=== PATIENT | female | born 1990 | race Two or more races ===

== ENCOUNTER 2016-03-21 04:38 | Inpatient (IN) | payer SELFPAY ==
--- NOTE | 2016-03-21 04:47 | L&D General Admission ---
General Admit Datetime Report Generated by CPN: 03/21/2016 04:45 INFORMATION Patient Age: 25 (02/20/2016 14:04:QS system process) EDC: 04/17/2016 00:00 (02/20/2016 15:21:Neeru Grajeda RN) Para: 1 (02/20/2016 15:17:Neeru Grajeda RN) Baby, Number in Womb: 1 (02/20/2016 15:17:Neeru Grajeda RN) CARE Primary Consulting Services Manager: [facility] (02/20/2016 15:21:Taylor Cee RN) Height (in): 61 (02/23/2016 17:30:QS system process) Height (in): 61 (02/23/2016 17:23:QS system process) Height (in): 61 (02/20/2016 15:27:QS system process) ALLERGIES Medication Allergies: No Known Allergies (02/23/2016) (02/23/2016 17:20:QS system process) Medication Allergies: No Known Allergies (09/05/2011) (02/20/2016 14:04:QS system process) DEMOGRAPHICS Address: [address] [place] [id number] (02/20/2016 14:04:QS system process) Zipcode: [id number] (02/20/2016 14:04:QS system process) Home (02/20/2016 14:04:QS system process) Work (03/21/2016 04:38:QS system process) SSN: [id number] (02/20/2016 14:04:QS system process) Next of Kin Name: ESTHER GUTIERREZ (02/20/2016 14:04:QS system process) Next of Kin (02/20/2016 14:04:QS system process) Next of Kin Relationship: SPO (02/20/2016 14:04:QS system process) Date of : 1990 (02/20/2016 14:04:QS system process) Marital Status: (02/20/2016 14:04:QS system process) Sex: Female (02/20/2016 14:04:QS system process) Race: Other (02/20/2016 14:04:QS system process) Ethnicity: or (02/20/2016 14:04:QS system process) Jain: Other (02/20/2016 14:04:QS system process)
[2016-03-21 05:32] LABS: APPEARANCE,URINE SLIGHTLY-CLOUDY; BILIRUBIN,URINE NEGATIVE (NEGATIVE); GLUCOSE, URINE NEGATIVE (NEGATIVE); KETONES,URINE NEGATIVE (NEGATIVE); LEUKOCYTE ESTERASE,URINE SMALL (NEGATIVE); NITRITE,URINE NEGATIVE (NEGATIVE); PROTEIN,URINE NEGATIVE (NEGATIVE); URINE SPECIFIC GRAVITY 1.009; UROBILINOGEN,URINE NEGATIVE mg/dL (<2.0)
[2016-03-21 05:43] LABS: URINE BARBITURATES SCREEN NEGATIVE; URINE METHADONE SCREEN NEGATIVE; URINE PHENCYCLIDINE SCREEN NEGATIVE
--- NOTE | 2016-03-21 06:16 | L&D General Admission ---
General Admit Datetime Report Generated by CPN: 03/21/2016 06:00 INFORMATION Patient Age: 25 (02/20/2016 14:04:QS system process) EDC: 04/17/2016 00:00 (02/20/2016 15:21:Neeru Grajeda RN) : 3 (02/20/2016 15:21:Gia Calderon RN) Para: 0 (02/20/2016 15:17:Zayra Jain RN) Term: 0 (02/20/2016 15:21:Zayra Jain RN) : 0 (02/20/2016 15:21:Zayra Jain RN) Spontaneous Abortions: 2 (02/20/2016 15:21:Zayra Jain RN) Induced Abortions: 0 (02/20/2016 15:21:Zayra Jain RN) Livin (02/20/2016 15:21:Zayra Jain RN) Cesareans: 0 (02/20/2016 15:21:Zayra Jain RN) VBACs: 0 (02/20/2016 15:21:Zayra Jain RN) Ectopic: 0 (02/20/2016 15:21:Zayra Jain RN) Multiple Births: 0 (02/20/2016 15:21:Zayra Jain RN) Baby, Number in Womb: 1 (02/20/2016 15:17:Neeru Grajeda RN) CARE Primary Management Technician: [facility] (02/20/2016 15:21:Taylor Cee RN) Adequate Care: Yes (02/20/2016 15:21:Gia Calderon RN) Height (in): 61 (03/21/2016 05:01:QS system process) ALLERGIES Medication Allergy: No (02/20/2016 15:21:Gia Calderon RN) Medication Allergies: No Known Allergies (03/21/2016) (03/21/2016 05:01:QS system process) Latex Allergy: No Latex Allergies (02/20/2016 15:21:Gia Calderon, RN) Food Allergies: none (02/20/2016 15:21:Gia Calderon, RN) Environmental Allergies: none (02/20/2016 15:21:Gia Calderon, RN) COMMUNICATION Primary Language: Kinyarwanda (02/20/2016 15:21:Gia Calderon, RN) Communication Barrier(s): Language barrier (02/20/2016 15:21:Gia Calderon, RN) DEMOGRAPHICS Address: [address] [place] [id number] (02/20/2016 14:04:QS system process) Zipcode: [address] (02/20/2016 14:04:QS system process) Home (02/20/2016 14:04:QS system process) Work (03/21/2016 04:38:QS system process) SSN: [id number] (02/20/2016 14:04:QS system process) Next of Kin Name: ESTHER GUTIERREZ (02/20/2016 14:04:QS system process) Next of Kin (02/20/2016 14:04:QS system process) Next of Kin Relationship: SPO (02/20/2016 14:04:QS system process) Date of : 1990 (02/20/2016 14:04:QS system process) Marital Status: (02/20/2016 14:04:QS system process) Sex: Female (02/20/2016 14:04:QS system process) Race: Other (02/20/2016 14:04:QS system process) Ethnicity: or (02/20/2016 14:04:QS system process) Roman Catholic: Other (02/20/2016 14:04:QS system process) FOB Involved: Yes (02/20/2016 15:21:Gia Calderon RN) Father of Baby Name: Esther Ashtonmasonkhari (02/20/2016 15:21:Gia Calderon RN) DRUG AND ALCOHOL USE Alcohol: No (02/20/2016 15:21:Gia Calderon RN) Cigarettes: Never Smoker. [id number] (02/20/2016 15:21:Gia Calderon RN) Marijuana: No (02/20/2016 15:21:Gia Calderon RN) Cocaine: No (02/20/2016 15:21:Gia Calderon RN) Other Illicit Drugs: No (02/20/2016 15:21:Gia Calderon RN) VACCINE HISTORY Influenza Vaccine: Uncertain (02/20/2016 15:21:Gia Calderon RN) Pneumococcal Vaccine: No (02/20/2016 15:21:Gia Calderon RN) Tetanus Vaccine: Uncertain (02/20/2016 15:21:Gia Calderon RN) Tdap Vaccine: Uncertain (02/20/2016 15:21:Gia Calderon RN) Hepatitis B Vaccine: Uncertain (02/20/2016 15:21:Gia Calderon RN) Feeding Preference: Both (02/20/2016 15:21:Gia Calderon RN) Circumcision: N/A (02/20/2016 15:21:Gia Calderon RN) Tubal Ligation: No (02/20/2016 15:21:Gia Calderon RN) Tubal Authorization Signed: N/A (02/20/2016 15:21:Gia Calderon RN) Consent: N/A (02/20/2016 15:21:Gia Calderon RN) Consent Signed: N/A (02/20/2016 15:21:Gia Calderon RN) Support Person: Esther (02/20/2016 15:21:Gia Calderon RN) Support Person Relationship: (02/20/2016 15:21:Gia Calderon RN) Cultural/Spritual Practice: No (02/20/2016 15:21:Gia Calderon RN) Spir/Cult Dietary Needs: No (02/20/2016 15:21:Gia Calderon RN) LIVING SITUATION/DISCHARGE PLAN Living Arrangements: House (02/20/2016 15:21:Gia Calderon RN) Adequate Access to:: Electric; Heat; Refrigeration; Plumbing/Running water; Phone; Transportation (02/20/2016 15:21:Gia Calderon RN) WIC Program: Yes (02/20/2016 15:21:Gia Calderon RN) Discharge Tubing Drier Person: Esther (02/20/2016 15:21:Gia Calderon RN) Person to Help after Discharge: Esther (02/20/2016 15:21:Gia Calderon RN) Currently Using Commun Resources: Yes (02/20/2016 15:21:Gia Calderon RN) Specify Current Resource Used: WIC (02/20/2016 15:21:Gia Calderon RN) Outside Agency/Crystalizer Operator: No (02/20/2016 15:21:Gia Calderon RN) Car Seat for Discharge: No (02/20/2016 15:21:Gia Calderon RN) Adoption Requested: No (02/20/2016 15:21:Gia Calderon RN) Pt Contact w/infant Post : N/A (02/20/2016 15:21:Gia Calderon RN) LABS Blood Type: O Positive (02/20/2016 15:21:Zayra Jain RN) Antibody Screen: Negative (02/20/2016 15:21:Zayra Jain RN) Rho(G) this : Not Applicable (02/20/2016 15:21:Zayra Jain RN) RPR/VDRL: Nonreactive (02/20/2016 15:21:Zayra Jain RN) HIV Results: Negative (02/20/2016 15:21:Zayra Jain RN) Hepatitis B: Negative (02/20/2016 15:21:Zayra Jain RN) Rubella: Immune (02/20/2016 15:21:Zayra Jain RN) Varicella: Non Susceptible (02/20/2016 15:21:Zayra Jain RN) OB/PREVIOUS HISTORY Current Procedures: Ultrasound; NST (02/20/2016 15:21:Gia Calderon RN) History of Previous : No (02/20/2016 15:21:Gia Calderon RN) History of Gestational Diabetes: Yes (02/20/2016 15:21:Gia Calderon RN) History of PIH: No (02/20/2016 15:21:Gia Calderon RN) History of Incompetent Cervix: No (02/20/2016 15:21:Gia Calderon RN) History of Placenta Previa/Abrup: No (02/20/2016 15:21:Gia Calderon RN) History of Macrosomia: No (02/20/2016 15:21:Gia Calderon RN) History of IUGR: No (02/20/2016 15:21:Gia Calderon RN) History of Hemorrhage: No (02/20/2016 15:21:Gia Calderon RN) History of Loss/Stillborn: No (02/20/2016 15:21:Gia Calderon RN) History of : No (02/20/2016 15:21:Gia Calderon RN) History of D (Rh) Sensitization: No (02/20/2016 15:21:Gia Calderon RN) History Recurrent Loss/Stillborn: No (02/20/2016 15:21:Gia Calderon RN) History Depression/PP Depression: No (02/20/2016 15:21:Gia Calderon RN) History of Uterine Anomaly/RITESH: No (02/20/2016 15:21:Gia Calderon RN) History of Infertility: No (02/20/2016 15:21:Gia Calderon RN) History of ART Treatment: No (02/20/2016 15:21:Gia Calderon RN) History of RITESH: No (02/20/2016 15:21:Gia Calderon RN) Comments Obstetrical History: G1: 2010 G2: 2014 G3: Current (02/20/2016 15:21:Gia Calderon RN) MEDICAL HISTORY Med Hx Diabetes: No (02/20/2016 15:21:Gia Calderon RN) Med Hx Hypertension: No (02/20/2016 15:21:Gia Calderon RN) Med Hx Heart Disease: No (02/20/2016 15:21:Gia Calderon RN) Med Hx Autoimmune Disorder: No (02/20/2016 15:21:Gia Calderon RN) Med Hx Kidney Disease/UTI: No (02/20/2016 15:21:Gia Calderon RN) Med Hx Neurologic/Epilepsy: No (02/20/2016 15:21:Gia Calderon RN) Med Hx Psychiatric Disorders: No (02/20/2016 15:21:Gia Calderon RN) Med Hx Hepatitis/Liver Disease: No (02/20/2016 15:21:Gia Calderon RN) Med Hx Varicosities/Phlebitis: No (02/20/2016 15:21:Gia Calderon RN) Med Hx Thyroid Dysfunction: No (02/20/2016 15:21:Gia Calderon RN) Med Hx Trauma/Violence: No (02/20/2016 15:21:Gia Calderon RN) Med Hx Blood Transfusion: No (02/20/2016 15:21:Gia Calderon RN) Med Hx Pulmonary (Asthma,TB): No (02/20/2016 15:21:Gia Calderon RN) Med Hx Breast: No (02/20/2016 15:21:Gia Calderon RN) Med Hx CREDIT COLLECTIONS SPECIALIST Surgery: No (02/20/2016 15:21:Gia Calderon RN) Med Hx Hospitalization/Surgery: No (02/20/2016 15:21:Gia Calderon RN) Med Hx Anesthetic Complications: No (02/20/2016 15:21:Gia Calderon RN) Med Hx Abnormal Pap Smear: No (02/20/2016 15:21:Gia Calderon RN) Other Medical Diseases: No (02/20/2016 15:21:Gia Calderon RN) Med Hx Significant Family Hx: No (02/20/2016 15:21:Gia Calderon RN) INFECTIOUS HISTORY Inf Hx Gonorrhea: No (02/20/2016 15:21:Gia Calderon RN) Inf Hx Chlamydia: No (02/20/2016 15:21:Gia Calderon RN) Inf Hx Syphilis: No (02/20/2016 15:21:Gia Calderon RN) Inf Hx HIV/AIDS: No (02/20/2016 15:21:Gia Calderon RN) Inf Hx Human Papilloma Virus: No (02/20/2016 15:21:Gia Calderon RN) Inf Hx Pt/Partner Genital Herpes: No (02/20/2016 15:21:Gia Calderon RN) Inf Hx Tuberculosis/Exposure: No (02/20/2016 15:21:Gia Calderon RN) Inf Hx Hepatitis B,C: No (02/20/2016 15:21:Gia Calderon RN) Inf Hx Rash or Viral Illness: No (02/20/2016 15:21:Gia Calderon RN) GENETIC HISTORY Gen Hx Age >=35 at VAHID: No (02/20/2016 15:21:Gia Calderon RN) Gen Hx Thalassemia: No (02/20/2016 15:21:Gia Calderon RN) Gen Hx Congenital Heart Defect: No (02/20/2016 15:21:Gia Calderon RN) Gen Hx Neural Tube Defect: No (02/20/2016 15:21:Gia Calderon RN) Gen Hx Down's Syndrome: No (02/20/2016 15:21:Gia Calderon RN) Gen Hx Leif-Sachs: No (02/20/2016 15:21:Gia Calderon RN) Gen Hx Keesha: No (02/20/2016 15:21:Gia Calderon RN) Gen Hx Familial Dysautonomia: No (02/20/2016 15:21:Gia Calderon RN) Gen Hx Sickle Cell Disease/Trait: No (02/20/2016 15:21:Gia Calderon RN) Gen Hx Hemophilia/Blood Disorder: No (02/20/2016 15:21:Gia Calderon RN) Gen Hx Muscular Dystrophy: No (02/20/2016 15:21:Gia Calderon RN) Gen Hx Cystic Fibrosis: No (02/20/2016 15:21:Gia Calderon RN) Gen Hx Huntingtons Chorea: No (02/20/2016 15:21:Gia Calderon RN) Gen Hx Mental Retardation/Autism: No (02/20/2016 15:21:Gia Calderon RN) Gen Hx Tested for Fragile X: No (02/20/2016 15:21:Gia Calderon RN) Gen Hx Other Inher/Chromosomal: No (02/20/2016 15:21:Gia Calderon RN) Gen Hx Maternal Metabolic DO: No (02/20/2016 15:21:Gia Calderon RN) Gen Hx Pt Father or FOB Defect: No (02/20/2016 15:21:Gia Calderon RN) Gen Hx Other Genetic History: No (02/20/2016 15:21:Gia Calderon RN) Gen Hx Drugs/Meds since LMP: No (02/20/2016 15:21:Gia Calderon RN)
--- NOTE | 2016-03-21 06:16 | L&D Current Admission ---
Current Admit Datetime Report Generated by CPN: 03/21/2016 06:00 ADMISSION INFORMATION Chief Complaint: Contractions (03/21/2016 05:21:Gia Kvng, ABELARDO)
[2016-03-21] MEDS ORDERED: PENICILLIN G POTASSIUM 5,000,000 UNIT in DEXTROSE 5%-WATER 100 ML IV ONE (06:31)
[2016-03-21] MEDS ORDERED: PENICILLIN G-K 5 MILLION UNIT VIAL ONE ×2 (06:31→10:25)
[2016-03-21] MEDS ORDERED: RINGERS SOLUTION,LACTATED 1,000 ML IV PRN ×2 (06:31→10:28)
[2016-03-21] MEDS ORDERED: PENICILLIN G-K 5 MILLION UNIT VIAL IV PRN ×2 (07:01→07:04)
[2016-03-21 07:03] LABS: ABSOLUTE EOSINOPHILS # (AUTO) 0.2 10^3/uL (0.0-0.6); ABSOLUTE LYMPHOCYTES (AUTO) 2.7 10^3/uL (0.5-4.7); ABSOLUTE MONOCYTES (AUTO) 0.7 10^3/uL (0.1-1.4); ABSOLUTE NEUT (AUTO) 10.2 10^3/uL (1.7-8.2); BASOPHILS % (AUTO) 0.4 % (0-2); EOSINOPHILS % (AUTO) 1.2 % (0-6); HEMATOCRIT 39.1 % (36.0-47.0); HEMOGLOBIN 13.2 g/dL (12.0-15.5); HGB HCT DIFFERENCE 0.5; LYMPHOCYTES % (AUTO) 19.8 % (13-45); MEAN CORPUSCULAR HEMOGLOBIN 28.7 pg (27.0-33.4); MEAN CORPUSCULAR HGB CONC 33.9 g/dL (32.0-36.0); MEAN CORPUSCULAR VOLUME 85 fl (80-97); RED BLOOD COUNT 4.62 10^6/uL (3.72-5.28); RED CELL DISTRIBUTION WIDTH 15.5 % (11.5-14.0); SEGMENTED NEUTROPHILS % (AUTO) 73.6 % (42-78); WHITE BLOOD COUNT 13.8 10^3/uL (4.0-10.5)
--- NOTE | 2016-03-21 08:01 | L&D Flow Sheet ---
LD Flowsheet Datetime Report Generated by CPN: 03/21/2016 08:00 Datetime: 03/21/2016 07:42 Maternal Assessment Level of Consciousness: Fully Conscious (Brenda Bronson, RN) DTR's/Clonus: DTRs 2+; No Clonus (Brenda Bronson, RN) Headache: Denies (Brenda Bronson, ABELARDO) Breath Sounds, Left: Clear and Equal (Brenda Bronson RN) Breath Sounds, Right: Clear and Equal (Brenda Flaviodebra, RN) Nausea/Vomiting: Denies (Brenda Aiyana, RN) RUQ Epigastric Pain: Denies (Brenda Bronson, RN) Datetime: 03/21/2016 07:30 Uterine Activity Monitor Mode: Internal (Brenda Willifka, RN) Frequency (min): 3-4 (Brenda Aiyana, RN) Duration (sec): 40-110 (Brenda Aiyana, RN) Resting Tone (Palpate): Relaxed (Brenda Willifdebra, RN) Assessment A Monitor Mode: External US (Brenda Marhefka, RN) FHR Baseline Rate : 125 (Brenda Marhefka, RN) FHR Baseline Changes: No Baseline Change (Brenda Marhefka, RN) Variability: Moderate 6-25 bpm (Brenda Marhefka, RN) Accelerations: None (Brenda Marhefka, RN) Decelerations: Early (Brenda Marhefka, RN) Datetime: 03/21/2016 07:21 I/O Interventions: Up to BR (Gia Calderon, RN) Datetime: 03/21/2016 07:15 Communication Communication: RN at Bedside; RN Reviewed Strip; Report Given to @ R Marhefka, RN (Gia Calderon, RN) Communication Comments: Report given to R Willifka, RN. Care relinquished at this time. (Gia Calderon, RN) Datetime: 03/21/2016 07:07 Monitor Interventions for FHR: Ultrasound Adjusted (Gia Calderon, RN) Datetime: 03/21/2016 07:04 Monitor Interventions for FHR: Ultrasound Adjusted (Gia Calderon, RN) Datetime: 03/21/2016 07:02 Procedures: Consents Signed (Gia Calderon, RN) Datetime: 03/21/2016 07:00 Vital Signs Stage of : Labor (Gia Calderon, RN) Uterine Activity Monitor Mode: External; Palpation (Gia Calderon, RN) Frequency (min): 2-2.5 (Gia Calderon, RN) Quality: Mild/Moderate (Gia Calderon, RN) Duration (sec): 90-140 (Gia Calderon, RN) Pattern: Normal: <= 5 Contractions in 10 Minutes (Gia Calderon, RN) Resting Tone (Palpate): Relaxed (Gia Calderon, RN) Assessment A Monitor Mode: External US (Gia Calderon, RN) FHR Baseline Rate : 120 (Gia Calderon, RN) FHR Baseline Changes: No Baseline Change (Gia Calderon, RN) Variability: Moderate 6-25 bpm (Gia Calderon, RN) Accelerations: 15X15 (Gia Calderon, RN) Decelerations: None (Gia Calderon, RN) Pain Pain Scale: 4 (Gia Calderon, RN) Pain Presence: Intermittent (Gia Calderon, RN) Pain Type: Contraction (Gia Calderon, RN) Pain Location: Abdomen (Gia Calderon, RN) Pain Goal: 1 (Gia Calderon, RN) Pain Relief Measures: Comfort Measures (Gia Calderon, RN) Comfort Measures: Breathing/Relaxation; Family Support (Gia Calderon, RN) Communication Communication: RN at Bedside; RN Reviewed Strip (Gia Calderon, RN) LaborFlag: Labor (QS system process) Datetime: 03/21/2016 06:45 Medications Antibiotics: Penicillin IV (Units) @ 5,000,000 (Maria Eugenia Nury, RN) Patient Care IV/Blood Work: IV Started; IV Bolus Started (Maria Eugenia Nury, RN) Patient Care Comments: 18 gauge placed in L hand on first attempt. Patient tolerated well. (Gia Calderon, RN) Datetime: 03/21/2016 06:31 Patient Care IV/Blood Work: Labs Drawn (Gia Calderon, RN) Datetime: 03/21/2016 06:30 Respirations: 18 (Gia Calderon, RN) Uterine Activity Monitor Mode: External; Palpation (Gia Calderon, RN) Frequency (min): 2-4 (Gia Calderon, RN) Quality: Mild/Moderate (Gia Calderon, RN) Duration (sec): 70-180 (Gia Calderon, RN) Pattern: Normal: <= 5 Contractions in 10 Minutes (Gia Calderon, RN) Resting Tone (Palpate): Relaxed (Gia Calderon, RN) Assessment A Monitor Mode: External US (Gia Calderon, RN) FHR Baseline Rate : 125 (Gia Calderon, RN) FHR Baseline Changes: No Baseline Change (Gia Calderon, RN) Variability: Moderate 6-25 bpm (Gia Calderon, RN) Accelerations: 15X15 (Gia Calderon, RN) Decelerations: None (Gia Calderon, RN) LaborFlag: Labor (QS system process) Datetime: 03/21/2016 06:28 I/O Interventions: Up to BR (Gia Calderon, RN) Datetime: 03/21/2016 06:22 Vital Signs Stage of : Labor (Gia Calderon, RN) Vaginal Exam Dilatation (cm): 3.0 (Gia Calderon, RN) Effacement (%): 70 (Gia Calderon, RN) Station: -2 (Gia Calderon, RN) Exam by: B Calderon, RN (Gia Calderon, RN) Vaginal Bleeding: None (Gia Calderon, RN) Cervix, Consistency: Soft (Gia Calderon, RN) Cervix, Position: Midposition (Gia Calderon, RN) Datetime: 03/21/2016 06:20 Membrane Status: Ruptured (Gia Calderon, RN) Membranes Rupture Method: Spontaneous (Gia Calderon, RN) Amniotic Fluid Color: Clear (Gia Calderon, RN) Amniotic Fluid Amount: Small (Gia Calderon, RN) Datetime: 03/21/2016 06:00 Vital Signs Stage of : Antepartum (Gia Calderon, RN) Uterine Activity Monitor Mode: External; Palpation (Gia Calderon, RN) Frequency (min): 3-5.5 (Gia Calderon, RN) Quality: Mild/Moderate (Gia Calderon, RN) Duration (sec): 60-120 (Gia Calderon, RN) Pattern: Normal: <= 5 Contractions in 10 Minutes (Gia Calderon, RN) Resting Tone (Palpate): Relaxed (Gia Calderon, RN) Assessment A Monitor Mode: External US (Gia Calderon, RN) FHR Baseline Rate : 120 (Gia Calderon, RN) FHR Baseline Changes: No Baseline Change (Gia Calderon, RN) Variability: Moderate 6-25 bpm (Gia Calderon, RN) Accelerations: 15X15 (Gia Calderon, RN) Decelerations: None (Gia Calderon, RN) Communication Communication: RN at Bedside; RN Reviewed Strip (Gia Calderon, RN) Datetime: 03/21/2016 05:30 Vital Signs Stage of : Antepartum (Gia Calderon, RN) Uterine Activity Monitor Mode: External; Palpation (Gia Calderon, RN) Frequency (min): 2-4.5 (Gia Calderon, RN) Quality: Mild (Gia Calderon, RN) Duration (sec): 50-120 (Gia Calderon, RN) Pattern: Normal: <= 5 Contractions in 10 Minutes (Gia Calderon, RN) Resting Tone (Palpate): Relaxed (Gia Calderon, RN) Assessment A Monitor Mode: External US (Gia Calderon, RN) FHR Baseline Rate : 115 (Gia Calderon, RN) FHR Baseline Changes: No Baseline Change (Gia Calderon, RN) Variability: Moderate 6-25 bpm (Gia Calderon, RN) Accelerations: 15X15 (Gia Calderon, RN) Decelerations: None (Gia Calderon, RN) Communication Communication: RN at Bedside; RN Reviewed Strip (Gia Calderon, RN) Datetime: 03/21/2016 05:28 NBP Sys/Adrienne/Mean (mmHg): 131 (QS system process) : 76 (QS system process) : 99 (QS system process) Pulse: 64 (QS system process) LaborFlag: Antepartum (QS system process) Datetime: 03/21/2016 05:21 Frequency (min): 7-10 minutes per patient (Gia Calderon, RN) Pain Pain Scale: 4 (Gia Calderon, RN) Pain Presence: Intermittent (Gia Calderon, RN) Pain Type: Contraction (Gia Calderon, RN) Pain Location: Abdomen (Gia Calderon, RN) Pain Goal: 1 (Gia Calderon, RN) Pain Relief Measures: Comfort Measures (Gia Calderon, RN) Pain Coping: Talking Through Contractions; Breathing Through Contractions (Gia Calderon, RN) Vaginal Bleeding: None (Gia Calderon, RN) Maternal Assessment Level of Consciousness: Fully Conscious (Gia Calderon, RN) DTR's/Clonus: DTRs 2+; No Clonus (Gia Calderon, RN) Headache: Denies (Gia Calderon, RN) Breath Sounds, Left: Clear and Equal (Gia Calderon, RN) Breath Sounds, Right: Clear and Equal (Gia Calderon, RN) Nausea/Vomiting: Denies (Gia Calderon, RN) RUQ Epigastric Pain: Denies (Gia Calderon, RN) LaborFlag: Antepartum (QS system process) Datetime: 03/21/2016 05:17 Vaginal Exam Dilatation (cm): 1.5 (Gia Calderon, RN) Effacement (%): 50 (Gia Calderon RN) Station: -3 (Gia Calderon, RN) Exam by: Kylee Calderon RN (Gia Calderon, RN) Vaginal Bleeding: None (Gia Calderon RN) Cervix, Consistency: Soft (Gia Calderon RN) Cervix, Position: Posterior (Gia Calderon RN)
[2016-03-21] MEDS ORDERED: LIDOCAINE 1% INJ-PF (10 MG/ML) 30 ML SDV ONE (09:00)
[2016-03-21] MEDS ORDERED: OXYTOCIN/NORMAL SALINE 20 UNIT/1,000 ML RTUINJ ONE (09:00)
[2016-03-21] MEDS ORDERED: MISOPROSTOL 0.2 MG TABLET ONE (09:00)
[2016-03-21] MEDS ORDERED: EPHEDRINE SULFATE INJ 50 MG/1 ML AMPULE ONE (09:19)
[2016-03-21] MEDS ORDERED: PHENYLEPHRINE HCL INJ/PF 10 MG/1 ML SDV ONE (09:19)
[2016-03-21] MEDS ORDERED: BUPIVACAINE HCL 0.25 % INJ/PF (2.5 MG/1 ML) 30 ML VIAL ONE (09:19)
[2016-03-21] MEDS ORDERED: FENTANYL/BUPIVACAINE/NS/PF 200 MCG/100 ML RTUINJ EPI ONE (09:19)
[2016-03-21] MEDS ORDERED: FENTANYL CITRATE INJ/PF 100 MCG/2 ML AMPUL ONE (09:19)
[2016-03-21] MEDS ORDERED: BUPIVACAINE HCL 0.25 % INJ/PF (2.5 MG/1 ML) 30 ML VIAL INFIL ONE (10:28)
[2016-03-21] MEDS ORDERED: BENZOIN/ALOE VERA/STORAX/TOLU TINCTURE 60 ML TP PRN (10:28)
[2016-03-21] MEDS ORDERED: FENTANYL/BUPIVACAINE/NS/PF 100 ML EPI PRN (10:28)
[2016-03-21] MEDS ORDERED: PENICILLIN G POTASSIUM 2,500,000 UNIT in DEXTROSE 5%-WATER 50 ML IV SCH (10:33)
--- NOTE | 2016-03-21 12:02 | L&D Flow Sheet ---
LD Flowsheet Datetime Report Generated by CPN: 03/21/2016 12:00 Datetime: 03/21/2016 11:55 Stage of : Recovery (Brenda Bronson RN) NBP Sys/Adrienne/Mean (mmHg): 129 (QS system process) : 61 (QS system process) : 84 (QS system process) Pulse: 91 (QS system process) Pain Scale: 0 (Brenda Bronson RN) Pain Presence: None/Denies (Brenda Bronson RN) Pain Type: N/A (Brenda Bronson RN) Pain Goal: 0 (Brenda Bronson RN) Pain Relief Measures: Comfort Measures (Brenda Bronson RN) Datetime: 03/21/2016 11:48 Stage of : Recovery (Brenda Marhefka, RN) Datetime: 03/21/2016 11:33 Comments: viable baby girl (Brenda Marhefka, RN) Datetime: 03/21/2016 11:32 Pushing: Involuntary Pushing (Brenda Marhefka, RN) Datetime: 03/21/2016 11:31 Pushing Position: Pushing with Contractions (Brenda Marhefka, RN) Pushing Progress: with Pushing (Brenda Marhefka, RN) Datetime: 03/21/2016 11:29 Pushing: Coached on Pushing (Brenda Marhefka, RN) Pushing Position: Pushing Lithotomy (Brenda Marhefka, RN) Stage 2 Comments: sve per provider for position and station of presenting part (Brenda Marhefka, RN) Datetime: 03/21/2016 11:27 Pushing: Coached on Pushing (Brenda Marhefka, RN) Pushing Position: Pushing with Contractions (Brenda Marhefka, RN) Pushing Progress: Descent with Pushing (Brenda Marhefka, RN) Datetime: 03/21/2016 11:25 I/O Interventions: Esteban Discontinued (Brenda Marhefka, RN) Datetime: 03/21/2016 11:23 Communication: Provider at Bedside (Brenda Marhefka, RN) Communication Comments: dr Kyle at bedside for assessment of fhr and station (Brenda Marhefka, RN) Datetime: 03/21/2016 11:22 Pulse: 104 (QS system process) SpO2 (%): 100 (QS system process) LaborFlag: Labor (QS system process) Datetime: 03/21/2016 11:17 Pulse: 69 (QS system process) SpO2 (%): 100 (QS system process) Patient Position/Activity: Left Lateral; Low Fowlers (Brendaal Trinhchris, RN) LaborFlag: Labor (QS system process) Datetime: 03/21/2016 11:15 Medication Comments: LR bolus (Brenda Bronson, RN) Datetime: 03/21/2016 11:14 Pulse: 75 (QS system process) SpO2 (%): 91 (QS system process) Patient Position/Activity: Hands-Knees (Brenda Bronson, RN) LaborFlag: Labor (QS system process) Datetime: 03/21/2016 11:12 Pulse: 71 (QS system process) SpO2 (%): 99 (QS system process) Oxygen Method: Non-Rebreather (Brenda Márquezfka, RN) LaborFlag: Labor (QS system process) Datetime: 03/21/2016 11:10 Patient Position/Activity: Right Lateral; Semi-Fowlers (Brenda Márquezfka, RN) Datetime: 03/21/2016 11:09 NBP Sys/Adrienne/Mean (mmHg): 131 (QS system process) : 70 (QS system process) : 98 (QS system process) Pulse: 80 (QS system process) LaborFlag: Labor (QS system process) Datetime: 03/21/2016 11:07 Pulse: 81 (QS system process) SpO2 (%): 99 (QS system process) LaborFlag: Labor (QS system process) Datetime: 03/21/2016 11:02 Pulse: 94 (QS system process) SpO2 (%): 96 (QS system process) LaborFlag: Labor (QS system process) Datetime: 03/21/2016 11:01 Dilatation (cm): 10.0 (Brenda Marhefka, RN) Effacement (%): 100 (Brenda Marhefka, RN) Station: 0 (Brenda Marhefka, RN) Exam by: Owen Segundo, [employer] (Brenda Marhefka, RN) Datetime: 03/21/2016 10:57 Pulse: 72 (QS system process) SpO2 (%): 98 (QS system process) LaborFlag: Labor (QS system process) Datetime: 03/21/2016 10:54 NBP Sys/Adrienne/Mean (mmHg): 127 (QS system process) : 75 (QS system process) : 93 (QS system process) Pulse: 67 (QS system process) LaborFlag: Labor (QS system process) Datetime: 03/21/2016 10:53 Antibiotics: Penicillin IV (Units) @ 2.5 Million (Brenda Marhefka, RN) Datetime: 03/21/2016 10:52 Pulse: 63 (QS system process) SpO2 (%): 98 (QS system process) LaborFlag: Labor (QS system process) Datetime: 03/21/2016 10:47 Pulse: 63 (QS system process) SpO2 (%): 96 (QS system process) LaborFlag: Labor (QS system process) Datetime: 03/21/2016 10:42 Pulse: 71 (QS system process) SpO2 (%): 98 (QS system process) LaborFlag: Labor (QS system process) Datetime: 03/21/2016 10:39 NBP Sys/Adrienne/Mean (mmHg): 122 (QS system process) : 66 (QS system process) : 88 (QS system process) Pulse: 68 (QS system process) LaborFlag: Labor (QS system process) Datetime: 03/21/2016 10:37 Pulse: 67 (QS system process) SpO2 (%): 97 (QS system process) LaborFlag: Labor (QS system process) Datetime: 03/21/2016 10:32 Pulse: 70 (QS system process) SpO2 (%): 98 (QS system process) LaborFlag: Labor (QS system process) Datetime: 03/21/2016 10:27 Pulse: 66 (QS system process) SpO2 (%): 96 (QS system process) LaborFlag: Labor (QS system process) Datetime: 03/21/2016 10:24 NBP Sys/Adrienne/Mean (mmHg): 121 (QS system process) : 67 (QS system process) : 89 (QS system process) Pulse: 77 (QS system process) LaborFlag: Labor (QS system process) Datetime: 03/21/2016 10:22 Pulse: 62 (QS system process) SpO2 (%): 97 (QS system process) LaborFlag: Labor (QS system process) Datetime: 03/21/2016 10:17 Pulse: 66 (QS system process) SpO2 (%): 97 (QS system process) LaborFlag: Labor (QS system process) Datetime: 03/21/2016 10:12 Pulse: 64 (QS system process) SpO2 (%): 95 (QS system process) LaborFlag: Labor (QS system process) Datetime: 03/21/2016 10:11 NBP Sys/Adrienne/Mean (mmHg): 119 (QS system process) : 65 (QS system process) : 86 (QS system process) Pulse: 68 (QS system process) LaborFlag: Labor (QS system process) Datetime: 03/21/2016 09:57 Patient Position/Activity: Left Lateral; Peanut Ball (Brenda Marhefka, RN) Datetime: 03/21/2016 09:54 NBP Sys/Adrienne/Mean (mmHg): 113 (QS system process) : 59 (QS system process) : 81 (QS system process) Pulse: 74 (QS system process) LaborFlag: Labor (QS system process) Datetime: 03/21/2016 09:53 NBP Sys/Adrienne/Mean (mmHg): 113 (QS system process) : 59 (QS system process) : 81 (QS system process) Pulse: 80 (QS system process) LaborFlag: Labor (QS system process) Datetime: 03/21/2016 09:52 NBP Sys/Adrienne/Mean (mmHg): 113 (QS system process) : 56 (QS system process) : 77 (QS system process) Pulse: 71 (QS system process) LaborFlag: Labor (QS system process) Datetime: 03/21/2016 09:51 NBP Sys/Adrienne/Mean (mmHg): 113 (QS system process) : 59 (QS system process) : 79 (QS system process) Pulse: 72 (QS system process) LaborFlag: Labor (QS system process) Datetime: 03/21/2016 09:50 NBP Sys/Adrienne/Mean (mmHg): 111 (QS system process) : 56 (QS system process) : 77 (QS system process) Pulse: 77 (QS system process) LaborFlag: Labor (QS system process) Datetime: 03/21/2016 09:49 NBP Sys/Adrienne/Mean (mmHg): 106 (QS system process) : 55 (QS system process) : 75 (QS system process) Pulse: 75 (QS system process) LaborFlag: Labor (QS system process) Datetime: 03/21/2016 09:48 NBP Sys/Adrienne/Mean (mmHg): 112 (QS system process) : 57 (QS system process) : 78 (QS system process) Pulse: 81 (QS system process) LaborFlag: Labor (QS system process) Datetime: 03/21/2016 09:47 NBP Sys/Adrienne/Mean (mmHg): 118 (QS system process) : 58 (QS system process) : 83 (QS system process) Pulse: 73 (QS system process) LaborFlag: Labor (QS system process) Datetime: 03/21/2016 09:46 NBP Sys/Adrienne/Mean (mmHg): 120 (QS system process) : 57 (QS system process) : 78 (QS system process) Pulse: 75 (QS system process) LaborFlag: Labor (QS system process) Datetime: 03/21/2016 09:45 NBP Sys/Adrienne/Mean (mmHg): 123 (QS system process) : 58 (QS system process) : 82 (QS system process) Pulse: 86 (QS system process) I/O Interventions: Esteban Cath Inserted (Brenda Bronson RN) LaborFlag: Labor (QS system process) Datetime: 03/21/2016 09:44 NBP Sys/Adrienne/Mean (mmHg): 119 (QS system process) : 57 (QS system process) : 82 (QS system process) Pulse: 75 (QS system process) LaborFlag: Labor (QS system process) Datetime: 03/21/2016 09:43 NBP Sys/Adrienne/Mean (mmHg): 123 (QS system process) : 55 (QS system process) : 83 (QS system process) Pulse: 69 (QS system process) LaborFlag: Labor (QS system process) Datetime: 03/21/2016 09:42 NBP Sys/Adrienne/Mean (mmHg): 129 (QS system process) : 61 (QS system process) : 88 (QS system process) Pulse: 70 (QS system process) LaborFlag: Labor (QS system process) Datetime: 03/21/2016 09:41 Epidural Procedure Other: Pump Started (Brenda Bronson, RN) Datetime: 03/21/2016 09:40 NBP Sys/Adrienne/Mean (mmHg): 114 (QS system process) : 62 (QS system process) : 82 (QS system process) Pulse: 74 (QS system process) LaborFlag: Labor (QS system process) Datetime: 03/21/2016 09:39 NBP Sys/Adrienne/Mean (mmHg): 125 (QS system process) : 59 (QS system process) : 87 (QS system process) Pulse: 83 (QS system process) Pulse: 80 (QS system process) SpO2 (%): 98 (QS system process) LaborFlag: Labor (QS system process) Datetime: 03/21/2016 09:38 NBP Sys/Adrienne/Mean (mmHg): 128 (QS system process) : 77 (QS system process) : 96 (QS system process) Pulse: 83 (QS system process) LaborFlag: Labor (QS system process) Datetime: 03/21/2016 09:37 Epidural Procedure: Cath Placed (Brenda Marhefka, RN) Datetime: 03/21/2016 09:36 NBP Sys/Adrienne/Mean (mmHg): 122 (QS system process) : 75 (QS system process) : 92 (QS system process) Pulse: 77 (QS system process) Epidural Procedure: Test Dose (Brenda Marhefka, RN) LaborFlag: Labor (QS system process) Datetime: 03/21/2016 09:33 Pulse: 82 (QS system process) SpO2 (%): 100 (QS system process) LaborFlag: Labor (QS system process) Datetime: 03/21/2016 09:26 Procedure Verify: Correct Patient Identity; Correct Side and Site are Marked; Accurate Procedure Consent Form; Agreement on Procedure to be Done; Correct Patient Position; Relevant Images and Results are Properly Labeled and Displayed; Addressed Need to Administer Antibiotics or Fluids for Irrigation; Safety Precautions Based on Patient History or Medication Use (Brenda Bronson RN) Datetime: 03/21/2016 09:25 Anesthesia Comments: Dr. Fortune @ bedside. (Brenda Bronson RN) Datetime: 03/21/2016 09:21 Dilatation (cm): 8.5 (Brenda Bronson RN) Effacement (%): 100 (Brenda Bronson RN) Station: -1 (Brenda Bronson RN) Exam by: Owen Segundo CNM (Brenda Bronson RN) Datetime: 03/21/2016 09:19 Pulse: 80 (QS system process) SpO2 (%): 97 (QS system process) Patient Care Comments: provider @ bedside (Brenda Bronson RN) LaborFlag: Labor (QS system process) Datetime: 03/21/2016 09:15 Patient Care Comments: Pt sitting for epidural (Brenda Bronson RN) Datetime: 03/21/2016 09:08 Pain Presence: Intermittent (Brenda Bronson RN) Pain Type: Contraction; Pressure (Brenda Bronson RN) Pain Location: Abdomen; Back (Brenda Bronson RN) Pain Relief Measures: Comfort Measures (Brenda Bronson RN) Pain Coping: Breathing Through Contractions; Requesting Pain Medication or Epidural (Brenda Bronson RN) Pain Assessment Comments: Pt feeling urge to push with ctxs (Brenda Bronson RN) Comfort Measures: Breathing/Relaxation (Brenda Bronson RN) Procedure Verify: Correct Patient Identity; Correct Side and Site are Marked; Accurate Procedure Consent Form; Relevant Images and Results are Properly Labeled and Displayed (Brenda Bronson RN) LaborFlag: Labor (QS system process) Datetime: 03/21/2016 09:00 Monitor Mode: External; Palpation (Brenda Marhefka, RN) Frequency (min): 1-4 (Brenda Marhefka, RN) Quality: Moderate (Brenda Marhefka, RN) Duration (sec): 60-100 (Brenda Marhefka, RN) Resting Tone (Palpate): Relaxed (Brenda Marhefka, RN) Monitor Mode: External US (Brenda Marhefka, RN) FHR Baseline Rate : 135 (Brenda Marhefka, RN) FHR Baseline Changes: No Baseline Change (Brenda Marhefka, RN) Variability: Moderate 6-25 bpm (Brenda Marhefka, RN) Accelerations: None (Brenda Marhefka, RN) Decelerations: Early; Late; Variable (Brenda Marhefka, RN) Datetime: 03/21/2016 08:54 Patient Care Comments: Pt sitting in bed in chair position high fowlers (Brenda Marhefka, RN) Datetime: 03/21/2016 08:52 Dilatation (cm): 7.0 (Brenda Bronson RN) Effacement (%): 100 (Brenda Bronson RN) Station: -1 (Brenda Bronson RN) Exam by: Owen Segundo CNM (Brenda Bronson RN) Datetime: 03/21/2016 08:45 NBP Sys/Adrienne/Mean (mmHg): 138 (QS system process) : 76 (QS system process) : 98 (QS system process) Pulse: 74 (QS system process) LaborFlag: Labor (QS system process) Datetime: 03/21/2016 08:30 Monitor Mode: External (Brenda Bronson RN) Frequency (min): 1-3 (Brenda Bronson RN) Quality: Mild/Moderate (Brenda Bronson RN) Duration (sec): 40-90 (Brenda Bronson RN) Resting Tone (Palpate): Relaxed (Brenda Bronson RN) Monitor Mode: External US (Brenda Marhefka, RN) FHR Baseline Rate : 135 (Brenda Marhefka, RN) FHR Baseline Changes: No Baseline Change (Brenda Marhefka, RN) Variability: Moderate 6-25 bpm (Brenda Marhefka, RN) Accelerations: None (Brenda Marhefka, RN) Decelerations: Early; Variable (Brenda Marhefka, RN) Comments: ultrasound tracing broken, pt rocking in rocking chair. (Brenda Martejinderfka, RN) Datetime: 03/21/2016 08:13 NBP Sys/Adrienne/Mean (mmHg): 127 (QS system process) : 66 (QS system process) : 89 (QS system process) Pulse: 71 (QS system process) Respirations: 18 (Rbenda Marhefka, RN) Temperature (F): 98.2 (Brenda Marhefka, RN) Temperature (C): 36.8 (QS system process) Temperature Route: Oral (Brenda Marhefka, RN) LaborFlag: Labor (QS system process) Datetime: 03/21/2016 08:00 Monitor Mode: External; Palpation (Brenda Marhefka, RN) Frequency (min): 2-3 (Brenda Bronson RN) Quality: Mild/Moderate (Brenda Bronson RN) Duration (sec): 50-110 (Brenda Bronson RN) Resting Tone (Palpate): Relaxed (Brenda Bronson RN) Monitor Mode: External US (Brenda Bronson RN) FHR Baseline Rate : 130 (Brenda Bronson RN) FHR Baseline Changes: No Baseline Change (Brenda Bronson RN) Variability: Moderate 6-25 bpm (Brenda Bronson RN) Accelerations: 15X15 (Brenda Bronson RN) Decelerations: Early (Brenda Bronson RN)
[2016-03-21] MEDS ORDERED: ACETAMINOPHEN WITH CODEINE #3 TABLET PO PRN ×2 (12:32)
[2016-03-21] MEDS ORDERED: DIPH/PERTUSS(ACELL)/TETANUS VAC/PF 0.5 ML SYR (>=10YO) IM PRN (12:32)
[2016-03-21] MEDS ORDERED: DIBUCAINE 1% OINTMENT 28 GM TP PRN (12:32)
[2016-03-21] MEDS ORDERED: ZOLPIDEM TARTRATE 5 MG TABLET PO PRN (12:32)
[2016-03-21] MEDS ORDERED: MEASLES,MUMPS&RUBELLA VACC/PF 0.5 ML VIAL SUBCUT PRN (12:32)
[2016-03-21] MEDS ORDERED: OXYTOCIN/NORMAL SALINE 1,000 ML IV PRN (12:32)
[2016-03-21] MEDS ORDERED: BENZOCAINE/MENTHOL AEROSOL SPRAY 56 ML TOP PRN (12:32)
--- NOTE | 2016-03-21 14:37 | Admission Physical ---
Datetime Report Generated by CPN: 03/21/2016 14:36 CURRENT ADMISSION Chief Complaint: Uterine Contractions Indication for Induction: Not Applicable Admit Plan: Admit to Unit; Initiate Labor Protocol ALLERGIES Medication Allergies: No Medication Allergies: No Known Allergies (03/21/2016) Latex: No Latex Allergies Food Allergies: none Environmental Allergies: none OBSTETRICAL HISTORY EDC: 04/17/2016 00:00 : 3 Para: 0 Term: 0 : 0 SAB: 2 IAB: 0 Ectopic: 0 Livin Cesareans: 0 VBACs: 0 Multiple Births: 0 Gestational Diabetes: Yes Rh Sensitization: No Incompetent Cervix: No RITESH: No Infertility: No ART Treatment: No Uterine Anomaly: No IUGR: No Hx Previous C/S: No Macrosomia: No Hx Loss/Stillborn: No PIH: No Hx : No Placenta Previa/Abruption: No Depression/PP Depression: No PTL/PROM: No Post Hemorrhage: No Current Procedures: Ultrasound; NST Obstetrical History Comments: G1: 2010 G2: 2014 G3: Current SEE RECORDS Alcohol: No Marijuana : No Cocaine: No Other Illicit Drugs: No Cigarettes: Never Smoker. [id number] MEDICAL HISTORY Diabetes: No Diabetes Type: Gestational Diabetes Blood Transfusion: No Pulmonary Disease (Asthma, TB): No Breast Disease: No Hypertension: No Permastone Mechanic Surgery: No Heart Disease: No Hosp/Surgery: No Autoimmune Disorder: No Anesthetic Complications: No Kidney Disease: No Abnormal Pap Smear: No Neuro/Epilepsy: No Psychiatric Disorders: No Other Medical Diseases: No Hepatitis/Liver Disease: No Significant Family History: No Varicosities/Phlebitis: No Trauma/Violence : No Thyroid Dysfunction: No Medical History Comments: Pt taking Glyburide INFECTIOUS HISTORY Gonorrhea: No Genital Herpes: No Chlamydia: No Tuberculosis: No Syphilis: No Hepatitis: No HIV/AIDS Exposure: No Rash or Viral Illness: No HPV: No PHYSICAL EXAM General: Normal HEENT: Normal Neurologic: Normal Thyroid: Normal Heart: Normal Lungs: Normal Breast: Normal Back: Normal Abdomen: Normal Genitourinary Exam: Normal Extremities: Normal DTRs: Normal Pelvic Type: Adequate Vital Signs: Reviewed; Within Normal Limits VAGINAL EXAM Dilatation: 8 Effacement: 100 Station: -1 Contraction Comments: 1.5-3 MEMBRANES Membranes: Ruptured Amniotic Fluid Color: Clear FETUS A EGA: 36.1 Monitoring: External US FHR- Baseline: 125 Variability: Minimal - Undetectable to <=5bpm Decelerations: Early; Late Admit Comment: 25yo . Admitted into L_D earlier this AM with labor. Pt. is 36w1d and an [facility] patient. O pos, RI, GBS unknown. Pt. was 1cm when presented to L_D then progressed to 3-4cm with SROM. Was admitted and continued to contract and make cervical change. Pt. is now comfortable with epidural placement. is complicated by GDM and on glyburide 2.5mg qhs. Per records was also treated with Keflex for UTI but no Urine culture on records. Pt. treated with penicillin for Unknown GBS and labor per protocol. PLANS FOR LABOR AND DELIVERY Labor and Delivery: None Other Pain Management Plans: unsure Feeding Preference: Both Benefit of Breast Feed Discussed: Yes Circumcision: N/A INFORMED CONSENT Assignment: Lavern Kyle MD Signature: with User ID: Renea : with User ID: [email or web address]
--- NOTE | 2016-03-21 14:52 | Delivery Summary ---
Del Sum A-C Datetime Report Generated by CPN: 03/21/2016 14:51 ADMISSION DATA Chief Complaint: Uterine Contractions Indication for Induction: Not Applicable Admission Impression: , Intrauterine ; Active Labor; Ruptured Membranes Admit Provider Comments: 25yo . Admitted into [facility] earlier this AM with labor. Pt. is 36w1d and an [facility] patient. O pos, RI, GBS unknown. Pt. was 1cm when presented to D then progressed to 3-4cm with SROM. Was admitted and continued to contract and make cervical change. Pt. is now comfortable with epidural placement. is complicated by GDM and on glyburide 2.5mg qhs. Per records was also treated with Keflex for UTI but no Urine culture on records. Pt. treated with penicillin for Unknown GBS and labor per protocol. DELIVERY PERSONNEL Delivery Doctor:: Lavern Kyle MD Nurse Coordinator Of Rehabilitation Services Certified:: Angie Segundo CNM Labor and Delivery Nurse:: Brenda Bronson RNindependent producer Nurse:: Ida Dixon RN Nursery Nurse:: Sav Bolden RN Store Stocker/PASTRY COOK: Ava Thomas CNA II Store Stocker/PASTRY COOK: Crystal Lee CST Additional Personnel: : MALA Trinh MATERNAL INFORMATION Delivery Anesthesia: Epidural Medications After Delivery: Pitocin Drip 20 Units/1000ml NSS Estimated Blood Loss (ml): 100 Estimated Blood Loss (ml): 100 Maternal Complications: Premature Rupture of Membranes Provider Comments: Called by [facility] for assistance with delivery. Reviewed possible need for FAVD or VAVD but pt began to push adequately with position change. VFI delivered in [facility] presentation. Nuchal cord delivered through and short cord noted after delivery. Placenta delivered spontaneously and intact - sent for pathology. Superficial perineal lacerations hemostatic and no need for repair. Good hemostasis. FF at U. Mother and baby stable upon provider leaving the room. LABOR SUMMARY EDC: 04/17/2016 00:00 No. Babies in Womb: 1 Attempted: No Labor Anesthesia: Epidural LABOR INFORMATION Reason for Induction: Not Applicable Onset of Labor: 03/21/2016 06:20 Complete Dilatation: 03/20/2016 11:01 Oxytocin: N/A Group B Beta Strep: Unknown Antibiotics # of Doses: 2 Antibiotics Time of Last Dose: 1050 Name of Antibiotic Given: Penicillin Steroids Given: None Reason Steroids Not Administered: Not Applicable MEMBRANES Membranes Rupture Method: Spontaneous Rupture of Membranes: 03/21/2016 06:20 Length of Rupture (hr): 5.22 Amniotic Fluid Color: Clear Amniotic Fluid Amount: Small Amniotic Fluid Odor: Normal STAGES OF LABOR Stage 1 hr: -19 Stage 1 min: -19 Stage 2 hr: 24 Stage 2 min: 32 Stage 3 hr: 0 Stage 3 min: 15 Total Time in Labor hr: 5 Total Time in Labor min: 28 VAGINAL DELIVERY Episiotomy: None Laceration Extension: N/A Laceration Type: None Laceration Repair: Not Applicable Laceration Repair Note: no repair needed Sponge Count Correct: N/A Sharps Count Correct: N/A BABY A INFORMATION Infant Delivery Date/Time: 03/21/2016 11:33 Method of Delivery: Vaginal Born in Route : No : N/A Forceps: N/A Vacuum Extraction: N/A Shoulder Dystocia : No PRESENTATION/POSITION BABY A Presentation: Cephalic Presentation: Cephalic Cephalic Presentation: Vertex Vertex Position: Left Occipital Anterior Breech Presentation: N/A PLACENTA INFORMATION BABY A Placenta Delivery Time : 03/21/2016 11:48 Placenta Method of Delivery: Spontaneous Placenta Status: Delivered SCORES BABY A Heart Rate 1 min: >100 bpm Resp Effort 1 min: Good Cry Reflex Irritability 1 min: Cough or Sneeze or Pulls Away Muscle Tone 1 min: Some Flexion of Extremities Color 1 min: Body [place], Extremities Blue Resuscitation Effort 1 min: Tactile Stimulation SCORE 1 MIN: 8 Heart Rate 5 min: >100 bpm Resp Effort 5 min: Good Cry Reflex Irritability 5 min: Cough or Sneeze or Pulls Away Muscle Tone 5 min: Active Motion Color 5 min: Body [place], Extremities Blue Resuscitation Effort 5 min: Tactile Stimulation SCORE 5 MIN: 9 INFORMATION BABY A Gestational Age at Delivery: 36.1 Gestational Status: Late - 34- 36.6 Weeks Infant Outcome : Liveborn Infant Condition : Stable Sex: Female IDENTIFICATION BABY A Verification Date/Time: 03/21/2016 12:15 ID Band Number: [id number] Mother's Name Verified: Yes RN Verifying : Adrien BronsonABELARDO/ Rosenda Rebollar RN WEIGHT/LENGTH BABY A Infant Birthweight (gm): 2590 Weight (lb): 5 Infant Weight (oz): 11 Infant Length (in): 18.50 Length (cm): 46.99 CORD INFORMATION BABY A No. Cord Vessels: 3 Nuchal Cord : N/A Cord Blood Taken: Yes-For Eval (Mom's Blood Type - or O+) Infant Suction: None ASSESSMENT BABY A Complications: Extended Bradycardia; Multiple Late Decels Physical Findings at Delivery: Within Normal Limits Infant Respirations: Appears Normal Skin to Skin: Yes Intern Product Marketing Manager/ALS Called : No Transferred To: Remains with Mother
[2016-03-21] MEDS: IBUPROFEN 800 MG TABLET PO SCH ×2 (15:39→21:06)
[2016-03-21] MEDS: FERROUS SULFATE 325 MG TABLET PO SCH (18:34)
[2016-03-21] MEDS: DOCUSATE SODIUM 100 MG CAPSULE PO SCH (18:36)
--- NOTE | 2016-03-21 19:01 | L&D Flow Sheet ---
LD Flowsheet Datetime Report Generated by CPN: 03/21/2016 19:00 Datetime: 03/21/2016 13:54 Stage of : Recovery (Brenda Martejinderfka, RN) NBP Sys/Adrienne/Mean (mmHg): 140 (QS system process) : 60 (QS system process) : 93 (QS system process) Pulse: 65 (QS system process) Datetime: 03/21/2016 13:39 NBP Sys/Adrienne/Mean (mmHg): 143 (QS system process) : 69 (QS system process) : 96 (QS system process) Pulse: 71 (QS system process) Datetime: 03/21/2016 13:25 Stage of : Recovery (Brenda Bronson RN) Pain Scale: 0 (Brenda Bronson RN) Pain Presence: None/Denies (Brenda Bronson RN) Pain Type: N/A (Brenda Bronson RN) Pain Goal: 0 (Brenda Bronson RN) Pain Relief Measures: Comfort Measures (Brenda Bronson RN) Datetime: 03/21/2016 13:24 NBP Sys/Adrienne/Mean (mmHg): 123 (QS system process) : 68 (QS system process) : 89 (QS system process) Pulse: 65 (QS system process) Datetime: 03/21/2016 13:09 NBP Sys/Adrienne/Mean (mmHg): 119 (QS system process) : 62 (QS system process) : 84 (QS system process) Pulse: 68 (QS system process) Temperature (F): 98.6 (Brenda Marhefka, RN) Temperature (C): 37.0 (QS system process) Temperature Route: Oral (Brenda Marhefka, RN) Datetime: 03/21/2016 12:55 Stage of : Recovery (Brenda Willifka, RN) Pain Scale: 1 (Brenda Marhefka, RN) Pain Presence: Constant (Brenda Marhefka, RN) Pain Type: Ache (Brenda Marhefka, RN) Pain Location: Abdomen (Brenda Marhefka, RN) Pain Goal: 0 (Brenda Marhefka, RN) Pain Relief Measures: Comfort Measures (Brenda Marhefka, RN) Datetime: 03/21/2016 12:54 NBP Sys/Adrienne/Mean (mmHg): 122 (QS system process) : 61 (QS system process) : 85 (QS system process) Pulse: 71 (QS system process) Datetime: 03/21/2016 12:40 Stage of : Recovery (Brenda Marhefka, RN) Datetime: 03/21/2016 12:39 NBP Sys/Adrienne/Mean (mmHg): 121 (QS system process) : 60 (QS system process) : 87 (QS system process) Pulse: 74 (QS system process) Datetime: 03/21/2016 12:25 Stage of : Recovery (Brenda Willifka, RN) Pain Scale: 0 (Brenda Marhefka, RN) Pain Presence: None/Denies (Brenda Marhefka, RN) Pain Type: N/A (Brenda Marhefka, RN) Pain Goal: 0 (Brenda Marhefka, RN) Pain Relief Measures: Comfort Measures (Brenda Marhefka, RN) Datetime: 03/21/2016 12:24 NBP Sys/Adrienne/Mean (mmHg): 105 (QS system process) : 58 (QS system process) : 73 (QS system process) Pulse: 93 (QS system process) Datetime: 03/21/2016 12:10 Stage of : Recovery (Brenda Willifdebra, RN) Pain Scale: 0 (Brenda Bronson RN) Pain Presence: None/Denies (Brenda Bronson RN) Pain Type: N/A (Brenda Bronson RN) Pain Goal: 0 (Brenda Bronson RN) Pain Relief Measures: Comfort Measures (Brenda Bronson RN) Datetime: 03/21/2016 12:09 NBP Sys/Adrienne/Mean (mmHg): 104 (QS system process) : 55 (QS system process) : 74 (QS system process) Pulse: 87 (QS system process) Datetime: 03/21/2016 11:55 Stage of : Recovery (Brenda Bronson RN) NBP Sys/Adrienne/Mean (mmHg): 129 (QS system process) : 61 (QS system process) : 84 (QS system process) Pulse: 91 (QS system process) Pain Scale: 0 (Brenda Bronson RN) Pain Presence: None/Denies (Brenda Bronson RN) Pain Type: N/A (Brenda Bronson RN) Pain Goal: 0 (Brenda Marhefka, RN) Pain Relief Measures: Comfort Measures (Brenda Aiyana, RN) Datetime: 03/21/2016 11:48 Stage of : Recovery (Brenda Williyasmin, RN) Datetime: 03/21/2016 11:33 Comments: viable baby girl (Brenda Aiyana, RN) Datetime: 03/21/2016 11:32 Pushing: Involuntary Pushing (Brenda Willifka, RN) Datetime: 03/21/2016 11:31 Pushing Position: Pushing with Contractions (Brenda Bronson, RN) Pushing Progress: with Pushing (Brenda Bronson, RN) Datetime: 03/21/2016 11:30 Monitor Mode: External (Brenda Bronson, RN) Frequency (min): 1-2 (Brenda Bronson RN) Quality: Moderate to Strong (Brenda Bronson RN) Duration (sec): 50-60 (Brenda Bronson, RN) Resting Tone (Palpate): Relaxed (Brenda Bronson, RN) Comments: UTD baseline due to maternal pushing provider and RN @ bedside continuously monitoring. (Brenda Bronson, RN) Datetime: 03/21/2016 11:29 Pushing: Coached on Pushing (Brenda Marhefka, RN) Pushing Position: Pushing Lithotomy (Brenda Marhefka, RN) Stage 2 Comments: sve per provider for position and station of presenting part (Brenda Marhefka, RN) Datetime: 03/21/2016 11:27 Pushing: Coached on Pushing (Brenda Marhefka, RN) Pushing Position: Pushing with Contractions (Brenda Marhefka, RN) Pushing Progress: Descent with Pushing (Brenda Marhefka, RN) Datetime: 03/21/2016 11:25 I/O Interventions: Esteban Discontinued (Brenda Marhefka, RN) Datetime: 03/21/2016 11:23 Communication: Provider at Bedside (Brenda Bronson, RN) Communication Comments: dr Kyle at bedside for assessment of fhr and station (Brenda Bronson, RN) Datetime: 03/21/2016 11:22 Pulse: 104 (QS system process) SpO2 (%): 100 (QS system process) LaborFlag: Labor (QS system process) Datetime: 03/21/2016 11:17 Pulse: 69 (QS system process) SpO2 (%): 100 (QS system process) Patient Position/Activity: Left Lateral; Low Fowlers (Brenda Marhefka, RN) LaborFlag: Labor (QS system process) Datetime: 03/21/2016 11:16 Patient Care Comments: RN and provider @ bedside continuously monitoring FHTs while pt involuntarily pushing with contractions. (Brenda Bronson, RN) Datetime: 03/21/2016 11:15 Monitor Mode: External; Palpation (Brenda Bronson RN) Frequency (min): 1-3 (Brenda Bronson RN) Quality: Moderate to Strong (Brenda Bronson RN) Duration (sec): 60-100 (Brenda Bronson, RN) Resting Tone (Palpate): Relaxed (Brenda Bronson RN) Monitor Mode: Internal Scalp Electrode (Brenda Bronson RN) FHR Baseline Rate : 100 (Brenda Bronson RN) FHR Baseline Changes: Bradycardia (Brenda Bronson, RN) Variability: Moderate 6-25 bpm (Brenda Bronson RN) Accelerations: None (Brenda Marhefka, RN) Medication Comments: LR bolus (Brenda Bronson, RN) Datetime: 03/21/2016 11:14 Pulse: 75 (QS system process) SpO2 (%): 91 (QS system process) Patient Position/Activity: Hands-Knees (Brenda Bronson, RN) LaborFlag: Labor (QS system process) Datetime: 03/21/2016 11:12 Pulse: 71 (QS system process) SpO2 (%): 99 (QS system process) Oxygen Method: Non-Rebreather (Brenda Bronson, RN) LaborFlag: Labor (QS system process) Datetime: 03/21/2016 11:10 Patient Position/Activity: Right Lateral; Semi-Fowlers (Brenda Bronson, RN) Datetime: 03/21/2016 11:09 NBP Sys/Adrienne/Mean (mmHg): 131 (QS system process) : 70 (QS system process) : 98 (QS system process) Pulse: 80 (QS system process) LaborFlag: Labor (QS system process) Datetime: 03/21/2016 11:08 Monitor Interventions for FHR: FSE Applied (Brenda Bronson, RN) Comments: FSE applied by Owen Segundo CNM (Brenda Bronson, RN) Datetime: 03/21/2016 11:07 Pulse: 81 (QS system process) SpO2 (%): 99 (QS system process) LaborFlag: Labor (QS system process) Datetime: 03/21/2016 11:03 Patient Care Comments: high fowlers, chair position (Brenda Marhefka, RN) Datetime: 03/21/2016 11:02 Pulse: 94 (QS system process) SpO2 (%): 96 (QS system process) LaborFlag: Labor (QS system process) Datetime: 03/21/2016 11:01 Dilatation (cm): 10.0 (Brenda Martejinderfka, RN) Effacement (%): 100 (Brenda Bronson, RN) Station: 0 (Brenda Flavioka, RN) Exam by: Owen Segundo CNM (Brenda Martejinderfka, RN) Datetime: 03/21/2016 11:00 Monitor Mode: External (Brenda Bronson, RN) Frequency (min): 1-3 (Brenda Bronson, RN) Quality: Moderate to Strong (Brenda Bronson, RN) Duration (sec): 50-110 (Brenda Bronson, RN) Resting Tone (Palpate): Relaxed (Brenda Bronson, RN) Monitor Mode: External US (Brenda Bronson, RN) FHR Baseline Rate : 115 (Brenda Bronson, RN) FHR Baseline Changes: No Baseline Change (Brenda Bronson, RN) Variability: Moderate 6-25 bpm (Brenda Bronson, RN) Comments: Provider notified of difficulty tracing baby (Brenda Willifka, RN) Datetime: 03/21/2016 10:59 Patient Care Comments: Pt feeling strong urge to push with ctxs (Brenda Bronson, RN) Communication: Provider at Bedside (Brenda Bronson, RN) Datetime: 03/21/2016 10:58 Monitor Interventions for FHR: Ultrasound Adjusted (Brenda Bronson, RN) Communication: RN at Bedside (Brenda Bronson, RN) Datetime: 03/21/2016 10:57 Pulse: 72 (QS system process) SpO2 (%): 98 (QS system process) LaborFlag: Labor (QS system process) Datetime: 03/21/2016 10:54 NBP Sys/Adrienne/Mean (mmHg): 127 (QS system process) : 75 (QS system process) : 93 (QS system process) Pulse: 67 (QS system process) LaborFlag: Labor (QS system process) Datetime: 03/21/2016 10:53 Antibiotics: Penicillin IV (Units) @ 2.5 Million ([facility], RN) Datetime: 03/21/2016 10:52 Pulse: 63 (QS system process) SpO2 (%): 98 (QS system process) LaborFlag: Labor (QS system process) Datetime: 03/21/2016 10:47 Pulse: 63 (QS system process) SpO2 (%): 96 (QS system process) Monitor Interventions for UA: [place] Adjusted (Brenda Bronson RN) Monitor Interventions for FHR: Ultrasound Adjusted (Brenda Bronson RN) Communication: RN at Bedside (Brenda Bronson RN) LaborFlag: Labor (QS system process) Datetime: 03/21/2016 10:45 Monitor Mode: External (Brenda Bronson RN) Frequency (min): 1-3 (Brenda Bronson RN) Quality: Moderate to Strong (Brenda Bronson RN) Duration (sec): 40-80 (Brenda Bronson RN) Resting Tone (Palpate): Relaxed (Brenda Bronson RN) Monitor Mode: External US (Brenda Bronson RN) Monitor Interventions for FHR: Ultrasound Adjusted (Brenda Bronson RN) FHR Baseline Rate : 125 (Brenda Bronson RN) FHR Baseline Changes: No Baseline Change (Brenda Marhefka, RN) Variability: Moderate 6-25 bpm (Brenda Willifka, RN) Decelerations: Late (Brenda Marhefka, RN) Datetime: 03/21/2016 10:42 Pulse: 71 (QS system process) SpO2 (%): 98 (QS system process) LaborFlag: Labor (QS system process) Datetime: 03/21/2016 10:39 NBP Sys/Adrienne/Mean (mmHg): 122 (QS system process) : 66 (QS system process) : 88 (QS system process) Pulse: 68 (QS system process) LaborFlag: Labor (QS system process) Datetime: 03/21/2016 10:37 Pulse: 67 (QS system process) SpO2 (%): 97 (QS system process) LaborFlag: Labor (QS system process) Datetime: 03/21/2016 10:32 Pulse: 70 (QS system process) SpO2 (%): 98 (QS system process) LaborFlag: Labor (QS system process) Datetime: 03/21/2016 10:30 Monitor Mode: External (Brenda Bronson RN) Frequency (min): 1-4 (Brenda Bronson RN) Quality: Moderate to Strong (Brenda Bronson RN) Duration (sec): 60-70 (Brenda Bronson RN) Resting Tone (Palpate): Relaxed (Brenda Bronson RN) Monitor Mode: External US (Brenda Bronson RN) Monitor Interventions for FHR: Ultrasound Adjusted (Brenda Bronson RN) FHR Baseline Rate : 125 (Brenda Marhefka, RN) FHR Baseline Changes: No Baseline Change (Brenda Bronson, RN) Variability: Moderate 6-25 bpm (Brenda Martejinderfka, RN) Datetime: 03/21/2016 10:27 Pulse: 66 (QS system process) SpO2 (%): 96 (QS system process) LaborFlag: Labor (QS system process) Datetime: 03/21/2016 10:24 NBP Sys/Adrienne/Mean (mmHg): 121 (QS system process) : 67 (QS system process) : 89 (QS system process) Pulse: 77 (QS system process) LaborFlag: Labor (QS system process) Datetime: 03/21/2016 10:22 Pulse: 62 (QS system process) SpO2 (%): 97 (QS system process) LaborFlag: Labor (QS system process) Datetime: 03/21/2016 10:17 Pulse: 66 (QS system process) SpO2 (%): 97 (QS system process) LaborFlag: Labor (QS system process) Datetime: 03/21/2016 10:15 Frequency (min): UTD (Brenda Bronson RN) Quality: Moderate to Strong (Brenda Bronson RN) Resting Tone (Palpate): Relaxed (Brenda Bronson RN) Monitor Mode: External US (Brenda Bronson RN) FHR Baseline Rate : 130 (Brenda Bronson RN) FHR Baseline Changes: No Baseline Change (Brenda Bronson RN) Variability: Moderate 6-25 bpm (Brenda Bronson RN) Accelerations: None (Brenda Marhefka, RN) Decelerations: Prolonged (Brenda Marhefka, RN) Datetime: 03/21/2016 10:14 Monitor Interventions for UA: [place] Adjusted (Brenda Marhefka, RN) Datetime: 03/21/2016 10:12 Pulse: 64 (QS system process) SpO2 (%): 95 (QS system process) LaborFlag: Labor (QS system process) Datetime: 03/21/2016 10:11 NBP Sys/Adrienne/Mean (mmHg): 119 (QS system process) : 65 (QS system process) : 86 (QS system process) Pulse: 68 (QS system process) LaborFlag: Labor (QS system process) Datetime: 03/21/2016 10:09 Monitor Interventions for UA: [place] Adjusted (Brenda Marhefka, RN) Datetime: 03/21/2016 10:05 Monitor Interventions for UA: [place] Adjusted (Brenda Marhefka, RN) Datetime: 03/21/2016 10:00 Monitor Mode: External (Brenda Marhefka, RN) Monitor Interventions for UA: [place] Adjusted (Brenda Bronson RN) Frequency (min): 1-4 (Brenda Bronson RN) Quality: Moderate to Strong (Brenda Bronson RN) Duration (sec): 40-90 (Brenda Bronson RN) Resting Tone (Palpate): Relaxed (Brenda Bronson RN) Monitor Mode: External US (Brenda Bronson RN) FHR Baseline Rate : 125 (Brenda Bronson RN) FHR Baseline Changes: No Baseline Change (Brenda Bronson RN) Variability: Moderate 6-25 bpm (Brenda Bronson RN) Decelerations: Late (Brenda Bronson RN) Comments: RN @ bedside adjusting ultrasound. Ultrasound not tracing during contraction. (Brenda Bronson RN) Datetime: 03/21/2016 09:57 Patient Position/Activity: Left Lateral; Peanut Ball (Brenda Bronson RN) Datetime: 03/21/2016 09:54 NBP Sys/Adrienne/Mean (mmHg): 113 (QS system process) : 59 (QS system process) : 81 (QS system process) Pulse: 74 (QS system process) LaborFlag: Labor (QS system process) Datetime: 03/21/2016 09:53 NBP Sys/Adrienne/Mean (mmHg): 113 (QS system process) : 59 (QS system process) : 81 (QS system process) Pulse: 80 (QS system process) LaborFlag: Labor (QS system process) Datetime: 03/21/2016 09:52 NBP Sys/Adrienne/Mean (mmHg): 113 (QS system process) : 56 (QS system process) : 77 (QS system process) Pulse: 71 (QS system process) LaborFlag: Labor (QS system process) Datetime: 03/21/2016 09:51 NBP Sys/Adrienne/Mean (mmHg): 113 (QS system process) : 59 (QS system process) : 79 (QS system process) Pulse: 72 (QS system process) LaborFlag: Labor (QS system process) Datetime: 03/21/2016 09:50 NBP Sys/Adrienen/Mean (mmHg): 111 (QS system process) : 56 (QS system process) : 77 (QS system process) Pulse: 77 (QS system process) LaborFlag: Labor (QS system process) Datetime: 03/21/2016 09:49 NBP Sys/Adrienne/Mean (mmHg): 106 (QS system process) : 55 (QS system process) : 75 (QS system process) Pulse: 75 (QS system process) LaborFlag: Labor (QS system process) Datetime: 03/21/2016 09:48 NBP Sys/Adrienne/Mean (mmHg): 112 (QS system process) : 57 (QS system process) : 78 (QS system process) Pulse: 81 (QS system process) LaborFlag: Labor (QS system process) Datetime: 03/21/2016 09:47 NBP Sys/Adrienne/Mean (mmHg): 118 (QS system process) : 58 (QS system process) : 83 (QS system process) Pulse: 73 (QS system process) LaborFlag: Labor (QS system process) Datetime: 03/21/2016 09:46 NBP Sys/Adrienne/Mean (mmHg): 120 (QS system process) : 57 (QS system process) : 78 (QS system process) Pulse: 75 (QS system process) LaborFlag: Labor (QS system process) Datetime: 03/21/2016 09:45 NBP Sys/Adrienne/Mean (mmHg): 123 (QS system process) : 58 (QS system process) : 82 (QS system process) Pulse: 86 (QS system process) Monitor Mode: External; Palpation (Brenda Bronson RN) Frequency (min): 2-4 (Brenda Bronson RN) Quality: Moderate to Strong (Brenda Bronson RN) Duration (sec): 40-90 (Brenda Bronson RN) Resting Tone (Palpate): Relaxed (Brenda Bronson RN) Monitor Mode: External US (Brenda Bronson RN) FHR Baseline Rate : 125 (Brenda Bronson RN) FHR Baseline Changes: No Baseline Change (Brenda Bronson RN) Variability: Moderate 6-25 bpm (Brenda Bronson, RN) Accelerations: None (Brenda Bronson RN) Decelerations: None (Brenda Bronson RN) I/O Interventions: Esteban Cath Inserted (Brenda Bronson RN) LaborFlag: Labor (QS system process) Datetime: 03/21/2016 09:44 NBP Sys/Adrienne/Mean (mmHg): 119 (QS system process) : 57 (QS system process) : 82 (QS system process) Pulse: 75 (QS system process) LaborFlag: Labor (QS system process) Datetime: 03/21/2016 09:43 NBP Sys/Adrienne/Mean (mmHg): 123 (QS system process) : 55 (QS system process) : 83 (QS system process) Pulse: 69 (QS system process) LaborFlag: Labor (QS system process) Datetime: 03/21/2016 09:42 NBP Sys/Adrienne/Mean (mmHg): 129 (QS system process) : 61 (QS system process) : 88 (QS system process) Pulse: 70 (QS system process) LaborFlag: Labor (QS system process) Datetime: 03/21/2016 09:41 Epidural Procedure Other: Pump Started (Brenad Marhefka, RN) Datetime: 03/21/2016 09:40 NBP Sys/Adrienne/Mean (mmHg): 114 (QS system process) : 62 (QS system process) : 82 (QS system process) Pulse: 74 (QS system process) LaborFlag: Labor (QS system process) Datetime: 03/21/2016 09:39 NBP Sys/Adrienne/Mean (mmHg): 125 (QS system process) : 59 (QS system process) : 87 (QS system process) Pulse: 83 (QS system process) Pulse: 80 (QS system process) SpO2 (%): 98 (QS system process) LaborFlag: Labor (QS system process) Datetime: 03/21/2016 09:38 NBP Sys/Adrienne/Mean (mmHg): 128 (QS system process) : 77 (QS system process) : 96 (QS system process) Pulse: 83 (QS system process) LaborFlag: Labor (QS system process) Datetime: 03/21/2016 09:37 Epidural Procedure: Cath Placed (Brenda Aiyana, RN) Datetime: 03/21/2016 09:36 NBP Sys/Adrienne/Mean (mmHg): 122 (QS system process) : 75 (QS system process) : 92 (QS system process) Pulse: 77 (QS system process) Epidural Procedure: Test Dose (Brenda Bronson RN) LaborFlag: Labor (QS system process) Datetime: 03/21/2016 09:34 Procedure Verify: Correct Patient Identity; Correct Side and Site are Marked; Accurate Procedure Consent Form; Agreement on Procedure to be Done; Correct Patient Position; Relevant Images and Results are Properly Labeled and Displayed; Addressed Need to Administer Antibiotics or Fluids for Irrigation; Safety Precautions Based on Patient History or Medication Use (Brenda Bronson, RN) Datetime: 03/21/2016 09:33 Pulse: 82 (QS system process) SpO2 (%): 100 (QS system process) LaborFlag: Labor (QS system process) Datetime: 03/21/2016 09:30 Monitor Mode: External (Brenda Bronson RN) Frequency (min): 2-4 (Brenda Bronson RN) Quality: Moderate (Brenda Bronson RN) Duration (sec): 40-100 (Brenda Bronson RN) Resting Tone (Palpate): Relaxed (Brenda Bronson RN) Monitor Mode: External US (Brenda Bronson RN) Monitor Interventions for FHR: Ultrasound Adjusted (Brenda Bronson RN) FHR Baseline Rate : 130 (Brenad Bronson RN) FHR Baseline Changes: No Baseline Change (Brenda Bronson RN) Variability: Moderate 6-25 bpm (Brenda Bronson RN) Decelerations: Variable (Brenda Bronson RN) Comments: RN @ bedside continuously searching for FHTs. Pt involuntarily pushing with ctxs, awaiting epidural. (Brenda Bronson RN) Datetime: 03/21/2016 09:26 Procedure Verify: Correct Patient Identity; Correct Side and Site are Marked; Accurate Procedure Consent Form; Agreement on Procedure to be Done; Correct Patient Position; Relevant Images and Results are Properly Labeled and Displayed; Addressed Need to Administer Antibiotics or Fluids for Irrigation; Safety Precautions Based on Patient History or Medication Use (Brenda Bronson RN) Datetime: 03/21/2016 09:25 Anesthesia Comments: Dr. Fortune @ bedside. (Brenda Bronson RN) Datetime: 03/21/2016 09:21 Dilatation (cm): 8.5 (Brenda Bronson RN) Effacement (%): 100 (Brenda Bronson RN) Station: -1 (Brenda Bronson RN) Exam by: Owen Segundo CNM (Brenda Bronson RN) Datetime: 03/21/2016 09:19 Pulse: 80 (QS system process) SpO2 (%): 97 (QS system process) Patient Care Comments: provider @ bedside (Brenda Bronson RN) LaborFlag: Labor (QS system process) Datetime: 03/21/2016 09:15 Patient Care Comments: Pt sitting for epidural (Brenda Bronson RN) Datetime: 03/21/2016 09:08 Pain Presence: Intermittent (Brenda Bronson RN) Pain Type: Contraction; Pressure (Brenda Bronson RN) Pain Location: Abdomen; Back (Brenda Bronson RN) Pain Relief Measures: Comfort Measures (Brenda Marhefka, RN) Pain Coping: Breathing Through Contractions; Requesting Pain Medication or Epidural (Brenda Bronson RN) Pain Assessment Comments: Pt feeling urge to push with ctxs (Brenda Bronson RN) Comfort Measures: Breathing/Relaxation (Brenda Bronson RN) Procedure Verify: Correct Patient Identity; Correct Side and Site are Marked; Accurate Procedure Consent Form; Relevant Images and Results are Properly Labeled and Displayed (Brenda Bronson RN) LaborFlag: Labor (QS system process) Datetime: 03/21/2016 09:00 Monitor Mode: External; Palpation (Brenda Bronson RN) Frequency (min): 1-4 (Brenda Bronson RN) Quality: Moderate (Brenda Bronson RN) Duration (sec): 60-100 (Brenda Bronson RN) Resting Tone (Palpate): Relaxed (Brenda Bronson RN) Monitor Mode: External US (Brenda Bronson RN) FHR Baseline Rate : 135 (Brenda Bronson RN) FHR Baseline Changes: No Baseline Change (Brenda Bronson RN) Variability: Moderate 6-25 bpm (Brenda Bronson RN) Accelerations: None (Brenda Bronson RN) Decelerations: Early; Late; Variable (Brenda Bronson RN) Datetime: 03/21/2016 08:54 Patient Care Comments: Pt sitting in bed in chair position high fowlers (Brenda Márquezmeagandebra, RN) Datetime: 03/21/2016 08:52 Dilatation (cm): 7.0 (Brenda Bronson, ABELARDO) Effacement (%): 100 (Brenda Bronson, ABELARDO) Station: -1 (Brenda Bronson RN) Exam by: Owen Segundo CNM (Brenda Bronson RN) Datetime: 03/21/2016 08:45 NBP Sys/Adrienne/Mean (mmHg): 138 (QS system process) : 76 (QS system process) : 98 (QS system process) Pulse: 74 (QS system process) LaborFlag: Labor (QS system process) Datetime: 03/21/2016 08:30 Monitor Mode: External (Brenda Bronson, RN) Frequency (min): 1-3 (Brenda Bronson, RN) Quality: Mild/Moderate (Brenda Willifka, RN) Duration (sec): 40-90 (Brenda Willifka, RN) Resting Tone (Palpate): Relaxed (Brenda Bronson, RN) Monitor Mode: External US (Brenda Bronson, RN) FHR Baseline Rate : 135 (Brenda Márquezfka, RN) FHR Baseline Changes: No Baseline Change (Brenda Márquezfka, RN) Variability: Moderate 6-25 bpm (Brenda Marhefka, RN) Accelerations: None (Brenda Marhefka, RN) Decelerations: Early; Variable (Brenda Márquezfka, RN) Comments: ultrasound tracing broken, pt rocking in rocking chair. (Brenda Márquezfka, RN) Datetime: 03/21/2016 08:13 NBP Sys/Adrienne/Mean (mmHg): 127 (QS system process) : 66 (QS system process) : 89 (QS system process) Pulse: 71 (QS system process) Respirations: 18 (Brenda Marhefka, RN) Temperature (F): 98.2 (Brenda Marhefka, RN) Temperature (C): 36.8 (QS system process) Temperature Route: Oral (Brenda Marhefka, RN) LaborFlag: Labor (QS system process) Datetime: 03/21/2016 08:00 Monitor Mode: External; Palpation (Brenda Marhefka, RN) Frequency (min): 2-3 (Brenda Marhefka, RN) Quality: Mild/Moderate (Brenda Marhefka, RN) Duration (sec): 50-110 (Brenda Marhefka, RN) Resting Tone (Palpate): Relaxed (Brenda Marhefka, RN) Monitor Mode: External US (Brenda Marhefka, RN) FHR Baseline Rate : 130 (Brenda Marhefka, RN) FHR Baseline Changes: No Baseline Change (Brenda Marhefka, RN) Variability: Moderate 6-25 bpm (Brenda Marhefka, RN) Accelerations: 15X15 (Brenda Marhefka, RN) Decelerations: Early (Brenda Marhefka, RN) Datetime: 03/21/2016 07:57 Pain Scale: 4 (Brenda Márquezfka, RN) Pain Presence: Intermittent (Brenda Márquezfka, RN) Pain Type: Contraction (Bernda Márquezfka, RN) Pain Location: Abdomen; Back (Brenda Márquezfka, RN) Pain Goal: 0 (Brenda Márquezfdebra, RN) Pain Relief Measures: Comfort Measures (Brenda Bronson, RN) Pain Coping: Declines Medication or Epidural (Brenda Bronson, RN) Comfort Measures: Breathing/Relaxation; Rocking Chair; Family Support (Brenda Bronson RN) LaborFlag: Labor (QS system process) Datetime: 03/21/2016 07:42 Level of Consciousness: Fully Conscious (Brenda Marhefka, RN) DTR's/Clonus: DTRs 2+; No Clonus (Brenda Marhefka, RN) Headache: Denies (Brenda Marhefka, RN) Breath Sounds, Left: Clear and Equal (Brenda Marhefka, RN) Breath Sounds, Right: Clear and Equal (Brenda Marhefka, RN) Nausea/Vomiting: Denies (Brenda Marhefka, RN) RUQ Epigastric Pain: Denies (Brenda Marhefka, RN) Datetime: 03/21/2016 07:30 Monitor Mode: Internal (Brenda Marhefka, RN) Frequency (min): 3-4 (Brenda Marhefka, RN) Duration (sec): 40-110 (Brenda Marhefka, RN) Resting Tone (Palpate): Relaxed (Brenda Marhefka, RN) Monitor Mode: External US (Brenda Marhefka, RN) FHR Baseline Rate : 125 (Brenda Marhefka, RN) FHR Baseline Changes: No Baseline Change (Brenda Marhefka, RN) Variability: Moderate 6-25 bpm (Brenda Marhefka, RN) Accelerations: None (Brenda Marhefka, RN) Decelerations: Early (Brenda Marhefka, RN) Datetime: 03/21/2016 07:21 I/O Interventions: Up to BR (Gia Calderon, RN) Datetime: 03/21/2016 07:15 Communication: RN at Bedside; RN Reviewed Strip; Report Given to @ R Marhefka, RN (Gia Calderon, RN) Communication Comments: Report given to R Aiyana, RN. Care relinquished at this time. (Gia Calderon, RN) Datetime: 03/21/2016 07:07 Monitor Interventions for FHR: Ultrasound Adjusted (Gia Calderon, RN) Datetime: 03/21/2016 07:04 Monitor Interventions for FHR: Ultrasound Adjusted (Gia Calderon, RN) Datetime: 03/21/2016 07:02 Procedures: Consents Signed (Gia Calderon, RN) Datetime: 03/21/2016 07:00 Stage of : Labor (Gia Calderon, RN) Monitor Mode: External; Palpation (Gia Calderon, RN) Frequency (min): 2-2.5 (Gia Calderon, RN) Quality: Mild/Moderate (Gia Calderon, RN) Duration (sec): 90-140 (Gia Calderon, RN) Pattern: Normal: <= 5 Contractions in 10 Minutes (Gia Calderon, RN) Resting Tone (Palpate): Relaxed (Gia Calderon, RN) Monitor Mode: External US (Gia Calderon, RN) FHR Baseline Rate : 120 (Gia Calderon, RN) FHR Baseline Changes: No Baseline Change (Gia Calderon, RN) Variability: Moderate 6-25 bpm (Gia Calderon, RN) Accelerations: 15X15 (Gia Calderon, RN) Decelerations: None (Gia Calderon, RN) Pain Scale: 4 (Gia Calderon, RN) Pain Presence: Intermittent (Gia Calderon, RN) Pain Type: Contraction (Gia Calderon, RN) Pain Location: Abdomen (Gia Calderon, RN) Pain Goal: 1 (Gia Calderon, RN) Pain Relief Measures: Comfort Measures (Gia Calderon RN) Comfort Measures: Breathing/Relaxation; Family Support (Gia Calderon RN) Communication: RN at Bedside; RN Reviewed Strip (Gia Calderon RN) LaborFlag: Labor (QS system process)
[2016-03-22] MEDS: IBUPROFEN 800 MG TABLET PO SCH ×3 (05:07→21:02)
--- NOTE | 2016-03-22 06:13 | L&D General Admission ---
General Admit Datetime Report Generated by CPN: 03/22/2016 06:00 INFORMATION Patient Age: 25 (02/20/2016 14:04:QS system process) EDC: 04/17/2016 00:00 (02/20/2016 15:21:Neeru Grajeda RN) : 3 (02/20/2016 15:21:Gia Calderon RN) Para: 0 (02/20/2016 15:17:Zayra Jain RN) Term: 0 (02/20/2016 15:21:Zayra Jain RN) : 0 (02/20/2016 15:21:Zayra Jain RN) Spontaneous Abortions: 2 (02/20/2016 15:21:Zayra Jain RN) Induced Abortions: 0 (02/20/2016 15:21:Zayra Jain RN) Livin (02/20/2016 15:21:Zayra Jain RN) Cesareans: 0 (02/20/2016 15:21:Zayra Jain RN) VBACs: 0 (02/20/2016 15:21:Zayra Jain RN) Ectopic: 0 (02/20/2016 15:21:Zayra Jain RN) Multiple Births: 0 (02/20/2016 15:21:Zayra Jain RN) Baby, Number in Womb: 1 (02/20/2016 15:17:Neeru Grajeda RN) CARE Primary Senior Project Engineer: Department (02/20/2016 15:21:Taylor Cee RN) Adequate Care: Yes (02/20/2016 15:21:Gia Calderon RN) Height (in): 61 (03/21/2016 14:35:QS system process) ALLERGIES Medication Allergy: No (02/20/2016 15:21:Gia Calderon RN) Medication Allergies: No Known Allergies (03/21/2016) (03/21/2016 05:01:QS system process) Latex Allergy: No Latex Allergies (02/20/2016 15:21:Gia Calderon, RN) Food Allergies: none (02/20/2016 15:21:Gia Calderon, RN) Environmental Allergies: none (02/20/2016 15:21:Gia Calderon, RN) COMMUNICATION Primary Language: Slovak (02/20/2016 15:21:Gia Calderon, RN) Communication Barrier(s): Language barrier (02/20/2016 15:21:Gia Calderon, RN) DEMOGRAPHICS Address: [address] [place] [id number] (02/20/2016 14:04:QS system process) Zipcode: [address] (02/20/2016 14:04:QS system process) Home (02/20/2016 14:04:QS system process) Work (03/21/2016 04:38:QS system process) SSN: [id number] (02/20/2016 14:04:QS system process) Next of Kin Name: ESTHER GUTIERREZ (02/20/2016 14:04:QS system process) Next of Kin (02/20/2016 14:04:QS system process) Next of Kin Relationship: SPO (02/20/2016 14:04:QS system process) Date of : 1990 (02/20/2016 14:04:QS system process) Marital Status: (02/20/2016 14:04:QS system process) Sex: Female (02/20/2016 14:04:QS system process) Race: Other (02/20/2016 14:04:QS system process) Ethnicity: or (02/20/2016 14:04:QS system process) Synagogue: Other (02/20/2016 14:04:QS system process) FOB Involved: Yes (02/20/2016 15:21:Gia Calderon RN) Father of Baby Name: Esther Ashtonmasonkhari (02/20/2016 15:21:Gia Calderon RN) DRUG AND ALCOHOL USE Alcohol: No (02/20/2016 15:21:Gia Calderon RN) Cigarettes: Never Smoker. [id number] (02/20/2016 15:21:Gia Calderon RN) Marijuana: No (02/20/2016 15:21:Gia Calderon RN) Cocaine: No (02/20/2016 15:21:Gia Calderon RN) Other Illicit Drugs: No (02/20/2016 15:21:Gia Calderon RN) VACCINE HISTORY Influenza Vaccine: Uncertain (02/20/2016 15:21:Gia Calderon RN) Pneumococcal Vaccine: No (02/20/2016 15:21:Gia Calderon RN) Tetanus Vaccine: Uncertain (02/20/2016 15:21:Gia Calderon RN) Tdap Vaccine: Uncertain (02/20/2016 15:21:Gia Calderon RN) Hepatitis B Vaccine: Uncertain (02/20/2016 15:21:Gia Calderon RN) Test Puller: Health Department (02/20/2016 15:21:Gia Calderon RN) Feeding Preference: Both (02/20/2016 15:21:Gia Calderon RN) Benefit of Breast Feed Discussed: Yes (02/20/2016 15:21:Brenda Bronson RN) Circumcision: N/A (02/20/2016 15:21:Gia Calderon RN) Classes Attended: No (02/20/2016 15:21:Gia Calderon RN) Tubal Ligation: No (02/20/2016 15:21:Gia Calderon RN) Tubal Authorization Signed: N/A (02/20/2016 15:21:Gia Calderon RN) Consent: N/A (02/20/2016 15:21:Gia Calderon RN) Consent Signed: N/A (02/20/2016 15:21:Gia Calderon RN) Other Pain Management Plans: unsure (02/20/2016 15:21:Gia Calderon RN) Plans for Labor and Delivery: None (02/20/2016 15:21:Gia Calderon RN) Support Person: Esther (02/20/2016 15:21:Gia Claderon RN) Support Person Relationship: (02/20/2016 15:21:Gia Calderon RN) Cultural/Spritual Practice: No (02/20/2016 15:21:Gia Calderon RN) Spir/Cult Dietary Needs: No (02/20/2016 15:21:Gia Calderon RN) LIVING SITUATION/DISCHARGE PLAN Living Arrangements: House (02/20/2016 15:21:Gia Calderon RN) Adequate Access to:: Electric; Heat; Refrigeration; Plumbing/Running water; Phone; Transportation (02/20/2016 15:21:Gia Calderon RN) WIC Program: Yes (02/20/2016 15:21:Gia Calderon RN) Discharge Solution Strategist Person: Esther (02/20/2016 15:21:Gia Calderon RN) Person to Help after Discharge: Esther (02/20/2016 15:21:Gia Calderon RN) Currently Using Commun Resources: Yes (02/20/2016 15:21:Gia Calderon RN) Specify Current Resource Used: WIC (02/20/2016 15:21:Gia Calderon RN) Outside Agency/Superintendent Colliery: No (02/20/2016 15:21:Gia Calderon RN) Car Seat for Discharge: No (02/20/2016 15:21:Gia Calderon RN) Adoption Requested: No (02/20/2016 15:21:Gia Calderon RN) Pt Contact w/ Post : N/A (02/20/2016 15:21:Gia Calderon RN) LABS Blood Type: O Positive (02/20/2016 15:21:Zayra Jain RN) Antibody Screen: Negative (02/20/2016 15:21:Zayra Jain RN) Rho(G) this : Not Applicable (02/20/2016 15:21:Zayra Jain RN) Hemoglobin: 13.2 (03/21/2016 06:37:QS system process) Hematocrit: 39.1 (03/21/2016 06:37:QS system process) MCV: 85 (03/21/2016 06:37:QS system process) Group Beta Strep: Unknown (02/20/2016 15:21:Gia Calderon RN) Gonorrhea: Negative (02/20/2016 15:21:Brenda Bronson RN) Chlamydia: Negative (02/20/2016 15:21:Brenda Bronson RN) RPR/VDRL: Nonreactive (02/20/2016 15:21:Zayra Jain RN) HIV Results: Negative (02/20/2016 15:21:Zayra Jain RN) Hepatitis B: Negative (02/20/2016 15:21:Zayra Jain RN) Rubella: Immune (02/20/2016 15:21:Zayra Jain RN) Varicella: Non Susceptible (02/20/2016 15:21:Zayra Jain RN) OB/PREVIOUS HISTORY Current Procedures: Ultrasound; NST (02/20/2016 15:21:Gia Calderon RN) History of Previous : No (02/20/2016 15:21:Gia Calderon RN) History of Gestational Diabetes: Yes (02/20/2016 15:21:Gia Calderon RN) History of PIH: No (02/20/2016 15:21:Gia Calderon RN) History of Incompetent Cervix: No (02/20/2016 15:21:Gia Calderon RN) History of Placenta Previa/Abrup: No (02/20/2016 15:21:Gia Calderon RN) History of Macrosomia: No (02/20/2016 15:21:Gia Calderon RN) History of IUGR: No (02/20/2016 15:21:Gia Calderon RN) History of Hemorrhage: No (02/20/2016 15:21:Gia Calderon RN) History of Loss/Stillborn: No (02/20/2016 15:21:Gia Calderon RN) History of : No (02/20/2016 15:21:Gia Calderon RN) History of D (Rh) Sensitization: No (02/20/2016 15:21:Gia Calderon RN) History Recurrent Loss/Stillborn: No (02/20/2016 15:21:Gia Calderon RN) History Depression/PP Depression: No (02/20/2016 15:21:Gia Calderon RN) History of Uterine Anomaly/RITESH: No (02/20/2016 15:21:Gia Calderon RN) History of Infertility: No (02/20/2016 15:21:Gia Calderon RN) History of ART Treatment: No (02/20/2016 15:21:Gia Calderon RN) History of RITESH: No (02/20/2016 15:21:Gia Calderon RN) Comments Obstetrical History: G1: 2010 G2: 2014 G3: Current (02/20/2016 15:21:Gia Calderon RN) MEDICAL HISTORY Med Hx Diabetes: No (02/20/2016 15:21:Gia Calderon RN) Diabetes Type: Gestational Diabetes (02/20/2016 15:21:Brenda Bronson RN) Med Hx Hypertension: No (02/20/2016 15:21:Gia Calderon RN) Med Hx Heart Disease: No (02/20/2016 15:21:Gia Calderon RN) Med Hx Autoimmune Disorder: No (02/20/2016 15:21:Gia Calderon RN) Med Hx Kidney Disease/UTI: No (02/20/2016 15:21:Gia Calderon RN) Med Hx Neurologic/Epilepsy: No (02/20/2016 15:21:Gia Calderon RN) Med Hx Psychiatric Disorders: No (02/20/2016 15:21:Gia Calderon RN) Med Hx Hepatitis/Liver Disease: No (02/20/2016 15:21:Gia Calderon RN) Med Hx Varicosities/Phlebitis: No (02/20/2016 15:21:Gia Calderon RN) Med Hx Thyroid Dysfunction: No (02/20/2016 15:21:Gia Calderon RN) Med Hx Trauma/Violence: No (02/20/2016 15:21:Gia Calderon RN) Med Hx Blood Transfusion: No (02/20/2016 15:21:Gia Calderon RN) Med Hx Pulmonary (Asthma,TB): No (02/20/2016 15:21:Gia Calderon RN) Med Hx Breast: No (02/20/2016 15:21:Gia Calderon RN) Med Hx EXTERMINATOR HELPER Surgery: No (02/20/2016 15:21:Gia Calderon RN) Med Hx Hospitalization/Surgery: No (02/20/2016 15:21:Gia Calderon RN) Med Hx Anesthetic Complications: No (02/20/2016 15:21:Gia Calderon RN) Med Hx Abnormal Pap Smear: No (02/20/2016 15:21:Gia Calderon RN) Other Medical Diseases: No (02/20/2016 15:21:Gia Calderon RN) Med Hx Significant Family Hx: No (02/20/2016 15:21:Gia Calderon RN) Details of Med/Surg Hx: Pt taking Glyburide (02/20/2016 15:21:Brenda Bronson RN) INFECTIOUS HISTORY Inf Hx Gonorrhea: No (02/20/2016 15:21:Gia Calderon RN) Inf Hx Chlamydia: No (02/20/2016 15:21:Gia Calderon RN) Inf Hx Syphilis: No (02/20/2016 15:21:Gia Calderon RN) Inf Hx HIV/AIDS: No (02/20/2016 15:21:Gia Calderon RN) Inf Hx Human Papilloma Virus: No (02/20/2016 15:21:Gia Calderon RN) Inf Hx Pt/Partner Genital Herpes: No (02/20/2016 15:21:Gia Calderon RN) Inf Hx Tuberculosis/Exposure: No (02/20/2016 15:21:Gia Calderon RN) Inf Hx Hepatitis B,C: No (02/20/2016 15:21:Gia Calderon RN) Inf Hx Rash or Viral Illness: No (02/20/2016 15:21:Gia Calderon RN) GENETIC HISTORY Gen Hx Age >=35 at VAHID: No (02/20/2016 15:21:Gia Calderon RN) Gen Hx Thalassemia: No (02/20/2016 15:21:Gia Calderon RN) Gen Hx Congenital Heart Defect: No (02/20/2016 15:21:Gia Calderon RN) Gen Hx Neural Tube Defect: No (02/20/2016 15:21:Gia Calderon RN) Gen Hx Down's Syndrome: No (02/20/2016 15:21:Gia Calderon RN) Gen Hx Leif-Sachs: No (02/20/2016 15:21:Gia Calderon RN) Gen Hx Keesha: No (02/20/2016 15:21:Gia Calderon RN) Gen Hx Familial Dysautonomia: No (02/20/2016 15:21:Gia Calderon RN) Gen Hx Sickle Cell Disease/Trait: No (02/20/2016 15:21:Gia Calderon RN) Gen Hx Hemophilia/Blood Disorder: No (02/20/2016 15:21:Gia Calderon RN) Gen Hx Muscular Dystrophy: No (02/20/2016 15:21:Gia Calderon RN) Gen Hx Cystic Fibrosis: No (02/20/2016 15:21:Gia Calderon RN) Gen Hx Huntingtons Chorea: No (02/20/2016 15:21:Gia Calderon RN) Gen Hx Mental Retardation/Autism: No (02/20/2016 15:21:Gia Calderon RN) Gen Hx Tested for Fragile X: No (02/20/2016 15:21:Gia Calderon RN) Gen Hx Other Inher/Chromosomal: No (02/20/2016 15:21:Gia Calderon RN) Gen Hx Maternal Metabolic DO: No (02/20/2016 15:21:Gia Calderon RN) Gen Hx Pt Father or FOB Defect: No (02/20/2016 15:21:Gia Calderon RN) Gen Hx Other Genetic History: No (02/20/2016 15:21:Gia Calderon RN) Gen Hx Drugs/Meds since LMP: No (02/20/2016 15:21:Gia Calderon RN)
--- NOTE | 2016-03-22 06:13 | L&D Current Admission ---
Current Admit Datetime Report Generated by CPN: 03/22/2016 06:00 ADMISSION INFORMATION Current Admit Date/Time: 03/21/2016 06:24 (03/21/2016 05:21:Brenda Bronson RN) Reason for Admission: Onset of Labor; Rupture of Membranes (03/21/2016 05:21:Brenda Bronson RN) Chief Complaint: Contractions (03/21/2016 05:21:Gia Calderon RN) EGA per Dates: 36.1 (03/21/2016 05:21:QS system process) Method of Arrival: Wheelchair (03/21/2016 05:21:Brenda Bronson RN) Admitted From: Home (03/21/2016 05:21:Brenda Bronson RN) Reason for Induction: Not Applicable (03/21/2016 05:21:Brenda Bronson RN) Records Available: Yes (03/21/2016 05:21:Brenda Bronson RN) General Admission Information: Reviewed; Updated; Confirmed (03/21/2016 05:21:Brenda Bronson RN) General Admission Reviewed By: Adrien Bronson RN (03/21/2016 05:21:Brenda Bronson RN) BELONGINGS/ADVANCED DIRECTIVES Valuables/Personal Effects: Cell Phone (03/21/2016 05:21:Brenda Bronson RN) Other Belongings: See belongings sheet (03/21/2016 05:21:Brenda Bronson RN) Disposition of Belongings: Kept with Patient (03/21/2016 05:21:Brenda Bronson RN) Advance Direct for Healthcare: No, and Wants No Information (03/21/2016 05:21:Bernda Bronson RN) Durable Power of Direct Casting Operator: No (03/21/2016 05:21:Brenda Bronson RN) Living Will: No (03/21/2016 05:21:Brenda Bronson RN) Organ Donor: No (03/21/2016 05:21:Brenda Bronson RN) Pt Rights Information Given: Yes (03/21/2016 05:21:Brenda Bronson RN) Pt Understands Pt Rights: Yes (03/21/2016 05:21:Brenda Bronson RN) LEARNING ASSESSMENT Knowledge Level: Understands L_D Process; Understands Care Activities; Had Pre-Hospital Education; Understands Diagnosis (03/21/2016 05:21:Brenda Bronson RN) Barriers to Learning: Communication Barrier (03/21/2016 05:21:Brenda Bronson RN) Learning Readiness: Motivated (03/21/2016 05:21:Brenda Bronson RN) Learns Best By: 1 to 1 Instruction; Demonstration (03/21/2016 05:21:Brenda Bronson RN) Learning Needs: Labor and Delivery Process; Pain Management; Symptoms to Report; Treatment Plan; Medication; Diagnosis; Nutrition; Equipment; Infant Care; Community Resources (03/21/2016 05:21:Brenda Bronson RN) DOMESTIC VIOLANCE SCREENING Dom Viol Threatened/Hurt: No (03/21/2016 05:21:Brenda Bronson RN) Hx of Abuse/Neglect past 2yrs: No (03/21/2016 05:21:Brenda Bronson RN) Feel Unsafe Going Home: No (03/21/2016 05:21:Brenda Bronson RN) Addt'l Observ Indicating Abuse: No (03/21/2016 05:21:Brenda Bronson RN) Reason Unable to Complete Screen: N/A, Screen Completed (03/21/2016 05:21:Brenda Bronson RN) Considered Personal Harm/Suicide: No (03/21/2016 05:21:Brenda Bronson RN) NUTRITIONAL/FUNCTIONAL SCREENING Problem with Appetite >5 Days: No (03/21/2016 05:21:Brenda Bronson RN) Chew/Swallow Difficulties: No (03/21/2016 05:21:Brenda Bronson RN) Inappropriate Wt Gain/Loss: No (03/21/2016 05:21:Brenda Bronson RN) Presence Skin Breakdown/Ulcer: No (03/21/2016 05:21:Brenda Bronson RN) Special Diet: No (03/21/2016 05:21:Brenda Bronson RN) Pt Requests Iron Worker Visit: No (03/21/2016 05:21:Brenda Bronson RN) Hx of Any of the Following?: N/A (03/21/2016 05:21:Brenda Bronson RN) New Diagnosis of: Gest Diabetes (03/21/2016 05:21:Brenda Bronson RN) Nutrition Comments: Pt on Glyburide (03/21/2016 05:21:Brenda Bronson RN) Requires Assist w/Ambulation: No (03/21/2016 05:21:Brenda Bronson RN) Uses Assist Device to Ambulate: No (03/21/2016 05:21:Brenda Bronson RN) Pt Requires Help w/ADL's: No (03/21/2016 05:21:Brenda Bronson RN)
--- NOTE | 2016-03-22 06:23 | L&D Care Plan ---
LD CARE PLANS Datetime Report Generated by CPN: 03/22/2016 06:15 Datetime: 03/21/2016 06:36 Pain State: Risk For (Ginna Kat RN) Related To: Labor and Delivery Process; Complication(s) of (Ginna Kat RN) Goal(s): Patients Pain will be Assessed and Managed; Patient will Verbalize Adequate Relief of Pain or the Ability to Stow with Current Pain (Ginna Kat RN) Interventions: Assess Pain Severity on Scale of 0 (None) to 5 (Severe); Assess Type, Location and Intensity of Pain Each Time Client Reports Discomfort and Notify Provider if Unusal Pain Develops; Encourage Proper Breathing and Relaxation Techniques; Offer Alternatives Such as Repositioning, Calm Environment, Massages, Diversional Activities, Ice Pack, Splinting, and Ambulation; Administer Analgesics as Ordered; Assist with Epidural Placement as Appropriate; Evaluate Therapeutic Effectiveness of Medication and Treatments (Ginna Kat RN) Outcome: Patient will Report Absence or Relief of Pain Consistent with Established Pain Goal (Ginna Kat RN) Outcome: Patient will have a Decrease in Signs and Symptoms of Discomfort (Ginna Kat RN) Outcome: Pain will be Controlled During Procedures (Ginna Kat RN) Anxiety State: Risk For (Ginna Kat RN) Related To: Labor and Delivery Process; Perceived or Actual Threat to ; Fear of Unknown (Ginna Kat RN) Goal(s): Patient will have Decreased Anxiety and be able to Function at Acceptable Levels (Ginna Kat RN) Interventions: Assess Verbal and Nonverbal Behavioral Indicators of Anxiety; Assist Patient to Identify and Verbalize Symptoms of Anxiety; Identify and Demonstrate Techniques to Control Anxiety; Assist Patient with Coping Mechanisms to Manage Anxiety; Provide Theraputic Touch for the Patient; Explain to Patient, Using a Calm Reassuring Approach and Nonmedical Terms, All Activities, Procedures, and Concerns; Instruct Patient and Family about Post Discharge Care, Limitations, Symptoms to Report and Resources Available (Ginna Kat RN) Outcome: Patient will Identify, Verbalize and Demonstrate Techniques to Control Anxiety (Ginna Kat RN) Outcome: Patient's Posture, Facial Expressions, Gestures and Activity Level will Reflect Decreased Anxiety (Ginna Kat RN) Outcome: Patient will Verbalize a Sense of Control and/or Acceptance of the Situation (Ginna Kat RN) Outcome: Patient will Identify and Utilize Support Person (Ginna Kat RN) Knowledge Deficit State: Risk For (Ginna Kat RN) Related To: Labor and Delivery Process; Impending Alterations in Family Dynamics; Feeding and Care (Ginna Kat RN) Goal(s): Patient will Accurately Verbalize Understanding of Plan of Care and Treatment; Patient and Family will Accurately Verbalize Understanding of the Disease Process (Ginna Kat RN) Interventions: Assess Motivation and Willingness of Patient/Family to Learn; Assess Preferred Learning Mode: One to One Instruction, Reading, Videos, Group Discussion or Demonstration; Assess Barriers to Learning: Pain, Emotional State, Language Barrier, Cognitive Impairment, Visual or Hearing Deficits; Assess Patient and Family Knowledge of Disease Process, Medications and Treatment; Discuss Therapy and/or Treatment Options, Describe Rationale Behind Management, Therapy and Treatment Recommendations; Instruct Patient and Family on Signs and Symptoms to Report; Instruct Patient and Family on Medication Effects and Side Effects; Provide Appropriate and Timely Education Using Multiple Techniques; Provide Patient and Family with Support Group Information and Resources; Give Clear and Thorough Explanations and Demonstrations (Ginna Kat RN) Outcome: Patient and Family will Verbalize Understanding of Condition, Treatment and Signs and Symptoms to Report (Ginna Kat RN) Outcome: Patient will Identify Perceived Learning Needs and Express Motivation to Learn (Ginna Kat RN) Outcome: Patient will Verbalize Understanding of Desired Content, and/or Performs Desired Skill Prior to Discharge (Ginna Kat RN) Infection State: Risk For (Ginna Kat RN) Related To: Prolonged Labor or Induction; Invasive Procedures (Ginna Kat RN) Goal(s): The Patient will be Free of Infection, Vital Signs Stable and Lab Work within Normal Parameters (Ginna Kat RN) Interventions: Instruct and Reinforce Proper Handwashing, Hygiene, and Care Techniques to Patient and Family; Monitor Vital Signs; Monitor Patient for the Following Signs of Infection: Fever, Abdominal Tenderness, Unusual Discharge; Monitor Aminiotic Fluid, Urine and Lochia for Color and Odor; Observe Wounds, Incisions and Invasive Line Sites for Redness, Drainage and Edema; Assess IV Sites per Hospital Policy; Monitor Lab and Test Results and Notify Provider of Abnormal Findings; Assess Nutritional Status and Promote Good Nutrition (Ginna Kat RN) Outcome: Patient will Remain Free of Infection (Ginna Kat RN) Outcome: Infection will be Recognized Early to Allow for Prompt Treatment (Ginna Kat RN) Outcome: Patient will have Vital Signs Within Expected Range (Ginna Kat RN) Impaired Skin Integrity State: Risk For (Ginna Kat RN) Related To: Vaginal Delivery; Surgical Procedures; Prolonged Bedrest (Ginna Kat RN) Goal(s): Patient will Maintain Optimal Skin Integrity, Free of Breakdown, Injury or Infection (Ginna Kat RN) Interventions: Complete Screening for Pressure Ulcer Risk and Initiate Protocol per Hospital Policy; Monitor Site of Skin Impairment for Color Changes, Redness, Swelling, Warmth, Pain or Other Signs of Infection; Encourage and Assist with Position Changes; Monitor Patient's Mobility Status; Provide Adequate Nutrition and Fluids; Teach Patient Appropriate Hygienic Care; Teach Patient/Family Skin Care Management (Ginna Kat, RN) Outcome: Patient will not have Evidence of Injury Such as Skin Breakdown, Scrapes, Cuts, or Bruising (Ginna Kat, RN) Outcome: Patient will Report Any Altered Sensation or Pain at Site of Skin Impairment (Ginna Kat, RN) Outcome: Patients Incisions and Wounds will be without Signs or Symptoms of Infection (Ginna Kat, RN) Outcome: Patient will Demonstrate Understanding of Plan to Heal Skin and Prevent Reinjury and Verbalize Risk Factors (Ginna Kat, RN)
[2016-03-22 07:25] LABS: HEMATOCRIT 32.9 % (36.0-47.0); HGB HCT DIFFERENCE 0.1; MEAN CORPUSCULAR HEMOGLOBIN 28.7 pg (27.0-33.4); MEAN CORPUSCULAR HGB CONC 33.5 g/dL (32.0-36.0); MEAN CORPUSCULAR VOLUME 86 fl (80-97); RED BLOOD COUNT 3.84 10^6/uL (3.72-5.28); RED CELL DISTRIBUTION WIDTH 15.7 % (11.5-14.0)
[2016-03-22] MEDS: SENNOSIDES/DOCUSATE 8.6-50 MG 1 EACH TABLET PO SCH (09:42)
[2016-03-22] MEDS: DOCUSATE SODIUM 100 MG CAPSULE PO SCH ×2 (09:43→17:42)
[2016-03-22] MEDS: FERROUS SULFATE 325 MG TABLET PO SCH ×2 (09:43→17:42)
[2016-03-22] MEDS: PRENATAL VITAMIN W-O CA NO5/FE FUMARATE/FA CAPSULE PO SCH (09:43)
--- NOTE | 2016-03-22 11:41 | PDOC PROGRESS REPORT ---
Subjective-OB Subjective: Post Delivery Day: 1 25 year old. Denies any needs at this time, states lochia is stable, pain well controlled, voiding without difficulty. Physical Exam (OB) Vital Signs: Temp Pulse Resp BP Pulse Ox 98.2 F 78 17 104/63 98 03/22/16 08:38 03/22/16 08:38 03/22/16 08:38 03/22/16 08:38 03/22/16 08:38 Intake & Output 03/21/16 03/22/16 03/23/16 06:59 06:59 06:59 Intake Total 540 Balance 540 Weight 104.9 kg - Lochia Lochia Amount: Scant < 10 ml Lochia Color: Rubra/Red - Abdomen Description: Tender, Soft, Round Hernia Present: No Fundal Description: Firm, Midline Fundal Height: u/u - u/2 Objective-Diagnostic Laboratory: 03/22/16 06:46 03/22/16 06:46 WBC 15.0 H RBC 3.84 Hgb 11.0 L D Hct 32.9 L MCV 86 MCH 28.7 MCHC 33.5 RDW 15.7 H Plt Count 173 Assessment and Plan(PN) - Assessment and Plan (1) Vaginal delivery Is this a current diagnosis for this admission?: YesPlan: routine pp care - Time Spent with Patient Time with patient: Less than 15 minutes Critical Time spent with patient: Less than 15 minutes Medications reviewed and adjusted accordingly: Yes - Disposition Anticipated Discharge: Home Within: within 48 hours
[2016-03-23] MEDS: IBUPROFEN 800 MG TABLET PO SCH (05:23)
--- NOTE | 2016-03-23 06:14 | L&D General Admission ---
General Admit Datetime Report Generated by CPN: 03/23/2016 06:00 INFORMATION Patient Age: 25 (02/20/2016 14:04:QS system process) EDC: 04/17/2016 00:00 (02/20/2016 15:21:Neeru Grajeda RN) : 3 (02/20/2016 15:21:Gia Calderon RN) Para: 0 (02/20/2016 15:17:Zayra Jain RN) Term: 0 (02/20/2016 15:21:Zayra Jain RN) : 0 (02/20/2016 15:21:Zayra Jain RN) Spontaneous Abortions: 2 (02/20/2016 15:21:Zayra Jain RN) Induced Abortions: 0 (02/20/2016 15:21:Zayra Jain RN) Livin (02/20/2016 15:21:Zayra Jain RN) Cesareans: 0 (02/20/2016 15:21:Zayra Jain RN) VBACs: 0 (02/20/2016 15:21:Zayra Jain RN) Ectopic: 0 (02/20/2016 15:21:Zayra Jain RN) Multiple Births: 0 (02/20/2016 15:21:Zayra Jain RN) Baby, Number in Womb: 1 (02/20/2016 15:17:Neeru Grajeda RN) CARE Primary Septic Tank Service Technician: [facility] (02/20/2016 15:21:Taylor Cee RN) Adequate Care: Yes (02/20/2016 15:21:Gia Calderon RN) Height (in): 61 (03/21/2016 14:35:QS system process) ALLERGIES Medication Allergy: No (02/20/2016 15:21:Gia Calderon RN) Medication Allergies: No Known Allergies (03/21/2016) (03/21/2016 05:01:QS system process) Latex Allergy: No Latex Allergies (02/20/2016 15:21:Gia Calderon, RN) Food Allergies: none (02/20/2016 15:21:Gia Calderon, RN) Environmental Allergies: none (02/20/2016 15:21:Gia Calderon, RN) COMMUNICATION Primary Language: Malay (02/20/2016 15:21:Gia Calderon, RN) Communication Barrier(s): Language barrier (02/20/2016 15:21:Gia Calderon, RN) DEMOGRAPHICS Address: [address] [place] [id number] (02/20/2016 14:04:QS system process) Zipcode: [address] (02/20/2016 14:04:QS system process) Home (02/20/2016 14:04:QS system process) Work (03/21/2016 04:38:QS system process) SSN: [id number] (02/20/2016 14:04:QS system process) Next of Kin Name: ESTHER GUTIERREZ (02/20/2016 14:04:QS system process) Next of Kin (02/20/2016 14:04:QS system process) Next of Kin Relationship: SPO (02/20/2016 14:04:QS system process) Date of : 1990 (02/20/2016 14:04:QS system process) Marital Status: (02/20/2016 14:04:QS system process) Sex: Female (02/20/2016 14:04:QS system process) Race: Other (02/20/2016 14:04:QS system process) Ethnicity: or (02/20/2016 14:04:QS system process) Pentecostalism: Other (02/20/2016 14:04:QS system process) FOB Involved: Yes (02/20/2016 15:21:Gia Calderon RN) Father of Baby Name: Esther Ashtonmasonkhari (02/20/2016 15:21:Gia Calderon RN) DRUG AND ALCOHOL USE Alcohol: No (02/20/2016 15:21:Gia Calderon RN) Cigarettes: Never Smoker. [id number] (02/20/2016 15:21:Gia Calderon RN) Marijuana: No (02/20/2016 15:21:Gia Calderon RN) Cocaine: No (02/20/2016 15:21:Gia Calderon RN) Other Illicit Drugs: No (02/20/2016 15:21:Gia Calderon RN) VACCINE HISTORY Influenza Vaccine: Uncertain (02/20/2016 15:21:Gia Calderon RN) Pneumococcal Vaccine: No (02/20/2016 15:21:Gia Calderon RN) Tetanus Vaccine: Uncertain (02/20/2016 15:21:Gia Calderon RN) Tdap Vaccine: Uncertain (02/20/2016 15:21:Gia Calderon RN) Hepatitis B Vaccine: Uncertain (02/20/2016 15:21:Gia Calderon RN) Rn Progressive Care: Health Department (02/20/2016 15:21:Gia Calderon RN) Feeding Preference: Both (02/20/2016 15:21:Gia Calderon RN) Benefit of Breast Feed Discussed: Yes (02/20/2016 15:21:Brenda Bronson RN) Circumcision: N/A (02/20/2016 15:21:Gia Calderon RN) Classes Attended: No (02/20/2016 15:21:Gia Calderon RN) Tubal Ligation: No (02/20/2016 15:21:Gia Calderon RN) Tubal Authorization Signed: N/A (02/20/2016 15:21:Gia Calderon RN) Consent: N/A (02/20/2016 15:21:Gia Calderon RN) Consent Signed: N/A (02/20/2016 15:21:Gia Calderon RN) Other Pain Management Plans: unsure (02/20/2016 15:21:Gia Calderon RN) Plans for Labor and Delivery: None (02/20/2016 15:21:Gia Calderon RN) Support Person: Esther (02/20/2016 15:21:Gia Calderon RN) Support Person Relationship: (02/20/2016 15:21:Gia Calderon RN) Cultural/Spritual Practice: No (02/20/2016 15:21:Gia Calderon RN) Spir/Cult Dietary Needs: No (02/20/2016 15:21:Gia Calderon RN) LIVING SITUATION/DISCHARGE PLAN Living Arrangements: House (02/20/2016 15:21:Gia Calderon RN) Adequate Access to:: Electric; Heat; Refrigeration; Plumbing/Running water; Phone; Transportation (02/20/2016 15:21:Gia Calderon RN) WIC Program: Yes (02/20/2016 15:21:Gia Calderon RN) Discharge Portrait Photographer Person: Esther (02/20/2016 15:21:Gia Calderon RN) Person to Help after Discharge: Esther (02/20/2016 15:21:Gia Calderon RN) Currently Using Commun Resources: Yes (02/20/2016 15:21:Gia Calderon RN) Specify Current Resource Used: WIC (02/20/2016 15:21:Gia Calderon RN) Outside Agency/Documentation Coordinator: No (02/20/2016 15:21:Gia Calderon RN) Car Seat for Discharge: No (02/20/2016 15:21:Gia Calderon RN) Adoption Requested: No (02/20/2016 15:21:Gia Calderon RN) Pt Contact w/ Post : N/A (02/20/2016 15:21:Gia Calderon RN) LABS Blood Type: O Positive (02/20/2016 15:21:Zayra Jain RN) Antibody Screen: Negative (02/20/2016 15:21:Zayra Jain RN) Rho(G) this : Not Applicable (02/20/2016 15:21:Zayra Jain RN) Hemoglobin: 11.0 L (03/22/2016 06:46:QS system process) Hematocrit: 32.9 L (03/22/2016 06:46:QS system process) MCV: 86 (03/22/2016 06:46:QS system process) Group Beta Strep: Unknown (02/20/2016 15:21:Gia Calderon RN) Gonorrhea: Negative (02/20/2016 15:21:Brenda Bronson RN) Chlamydia: Negative (02/20/2016 15:21:Brenda Bronson RN) RPR/VDRL: Nonreactive (02/20/2016 15:21:Zayra Jain RN) HIV Results: Negative (02/20/2016 15:21:Zayra Jain RN) Hepatitis B: Negative (02/20/2016 15:21:Zayra Jain RN) Rubella: Immune (02/20/2016 15:21:Zayra Jain RN) Varicella: Non Susceptible (02/20/2016 15:21:Zayra Jain RN) OB/PREVIOUS HISTORY Current Procedures: Ultrasound; NST (02/20/2016 15:21:Gia Calderon RN) History of Previous : No (02/20/2016 15:21:Gia Calderon RN) History of Gestational Diabetes: Yes (02/20/2016 15:21:Gia Calderon RN) History of PIH: No (02/20/2016 15:21:Gia Calderon RN) History of Incompetent Cervix: No (02/20/2016 15:21:Gia Calderon RN) History of Placenta Previa/Abrup: No (02/20/2016 15:21:Gia Calderon RN) History of Macrosomia: No (02/20/2016 15:21:Gia Calderon RN) History of IUGR: No (02/20/2016 15:21:Gia Calderon RN) History of Hemorrhage: No (02/20/2016 15:21:Gia Calderon RN) History of Loss/Stillborn: No (02/20/2016 15:21:Gia Calderon RN) History of : No (02/20/2016 15:21:Gia Calderon RN) History of D (Rh) Sensitization: No (02/20/2016 15:21:Gia Calderon RN) History Recurrent Loss/Stillborn: No (02/20/2016 15:21:Gia Calderon RN) History Depression/PP Depression: No (02/20/2016 15:21:Gia Calderon RN) History of Uterine Anomaly/RITESH: No (02/20/2016 15:21:Gia Calderon RN) History of Infertility: No (02/20/2016 15:21:Gia Calderon RN) History of ART Treatment: No (02/20/2016 15:21:Gia Calderon RN) History of RITESH: No (02/20/2016 15:21:Gia Calderon RN) Comments Obstetrical History: G1: 2010 G2: 2014 G3: Current (02/20/2016 15:21:Gia Calderon RN) MEDICAL HISTORY Med Hx Diabetes: No (02/20/2016 15:21:Gia Calderon RN) Diabetes Type: Gestational Diabetes (02/20/2016 15:21:Brenda Bronson RN) Med Hx Hypertension: No (02/20/2016 15:21:Gia Calderon RN) Med Hx Heart Disease: No (02/20/2016 15:21:Gia Calderon RN) Med Hx Autoimmune Disorder: No (02/20/2016 15:21:Gia Calderon RN) Med Hx Kidney Disease/UTI: No (02/20/2016 15:21:Gia Calderon RN) Med Hx Neurologic/Epilepsy: No (02/20/2016 15:21:Gia Calderon RN) Med Hx Psychiatric Disorders: No (02/20/2016 15:21:Gia Calderon RN) Med Hx Hepatitis/Liver Disease: No (02/20/2016 15:21:Gia Calderon RN) Med Hx Varicosities/Phlebitis: No (02/20/2016 15:21:Gia Calderon RN) Med Hx Thyroid Dysfunction: No (02/20/2016 15:21:Gia Calderon RN) Med Hx Trauma/Violence: No (02/20/2016 15:21:Gia Calderon RN) Med Hx Blood Transfusion: No (02/20/2016 15:21:Gia Calderon RN) Med Hx Pulmonary (Asthma,TB): No (02/20/2016 15:21:Gia Calderon RN) Med Hx Breast: No (02/20/2016 15:21:Gia Calderon RN) Med Hx SUPERVISOR BRINE Surgery: No (02/20/2016 15:21:Gia Calderon RN) Med Hx Hospitalization/Surgery: No (02/20/2016 15:21:Gia Calderon RN) Med Hx Anesthetic Complications: No (02/20/2016 15:21:Gia Calderon RN) Med Hx Abnormal Pap Smear: No (02/20/2016 15:21:Gia Calderon RN) Other Medical Diseases: No (02/20/2016 15:21:Gia Calderon RN) Med Hx Significant Family Hx: No (02/20/2016 15:21:Gia Calderon RN) Details of Med/Surg Hx: Pt taking Glyburide (02/20/2016 15:21:Brenda Bronson RN) INFECTIOUS HISTORY Inf Hx Gonorrhea: No (02/20/2016 15:21:Gia Calderon RN) Inf Hx Chlamydia: No (02/20/2016 15:21:Gia Calderon RN) Inf Hx Syphilis: No (02/20/2016 15:21:Gia Calderon RN) Inf Hx HIV/AIDS: No (02/20/2016 15:21:Gia Calderon RN) Inf Hx Human Papilloma Virus: No (02/20/2016 15:21:Gia Calderon RN) Inf Hx Pt/Partner Genital Herpes: No (02/20/2016 15:21:Gia Calderon RN) Inf Hx Tuberculosis/Exposure: No (02/20/2016 15:21:Gia Calderon RN) Inf Hx Hepatitis B,C: No (02/20/2016 15:21:Gia Calderon RN) Inf Hx Rash or Viral Illness: No (02/20/2016 15:21:Gia Calderon RN) GENETIC HISTORY Gen Hx Age >=35 at VAHID: No (02/20/2016 15:21:Gia Calderon RN) Gen Hx Thalassemia: No (02/20/2016 15:21:Gia Calderon RN) Gen Hx Congenital Heart Defect: No (02/20/2016 15:21:Gia Calderon RN) Gen Hx Neural Tube Defect: No (02/20/2016 15:21:Gia Calderon RN) Gen Hx Down's Syndrome: No (02/20/2016 15:21:Gia Calderon RN) Gen Hx Leif-Sachs: No (02/20/2016 15:21:Gia Calderon RN) Gen Hx Keesha: No (02/20/2016 15:21:Gia Calderon RN) Gen Hx Familial Dysautonomia: No (02/20/2016 15:21:Gia Calderon RN) Gen Hx Sickle Cell Disease/Trait: No (02/20/2016 15:21:Gia Calderon RN) Gen Hx Hemophilia/Blood Disorder: No (02/20/2016 15:21:Gia Calderon RN) Gen Hx Muscular Dystrophy: No (02/20/2016 15:21:Gia Calderon RN) Gen Hx Cystic Fibrosis: No (02/20/2016 15:21:Gia Calderon RN) Gen Hx Huntingtons Chorea: No (02/20/2016 15:21:Gia Calderon RN) Gen Hx Mental Retardation/Autism: No (02/20/2016 15:21:Gia Calderon RN) Gen Hx Tested for Fragile X: No (02/20/2016 15:21:Gia Calderon RN) Gen Hx Other Inher/Chromosomal: No (02/20/2016 15:21:Gia Calderon RN) Gen Hx Maternal Metabolic DO: No (02/20/2016 15:21:Gia Calderon RN) Gen Hx Pt Father or FOB Defect: No (02/20/2016 15:21:Gia Calderon RN) Gen Hx Other Genetic History: No (02/20/2016 15:21:Gia Calderon RN) Gen Hx Drugs/Meds since LMP: No (02/20/2016 15:21:Gia Calderon RN)
--- NOTE | 2016-03-23 06:14 | L&D Current Admission ---
Current Admit Datetime Report Generated by CPN: 03/23/2016 06:00 ADMISSION INFORMATION Current Admit Date/Time: 03/21/2016 06:24 (03/21/2016 05:21:Brenda Bronson RN) Reason for Admission: Onset of Labor; Rupture of Membranes (03/21/2016 05:21:Brenda Bronson RN) Chief Complaint: Contractions (03/21/2016 05:21:Gia Calderon RN) EGA per Dates: 36.1 (03/21/2016 05:21:QS system process) Method of Arrival: Wheelchair (03/21/2016 05:21:Brenda Bronson RN) Admitted From: Home (03/21/2016 05:21:Brenda Bronson RN) Reason for Induction: Not Applicable (03/21/2016 05:21:Brenda Bronson RN) Records Available: Yes (03/21/2016 05:21:Brenda Bronson RN) General Admission Information: Reviewed; Updated; Confirmed (03/21/2016 05:21:Brenda Bronson RN) General Admission Reviewed By: Adrien Bronson RN (03/21/2016 05:21:Brenda Bronson RN) BELONGINGS/ADVANCED DIRECTIVES Valuables/Personal Effects: Cell Phone (03/21/2016 05:21:Brenda Bronson RN) Other Belongings: See belongings sheet (03/21/2016 05:21:Brenda Bronson RN) Disposition of Belongings: Kept with Patient (03/21/2016 05:21:Brenda Bronson RN) Advance Direct for Healthcare: No, and Wants No Information (03/21/2016 05:21:Brenda Bronson RN) Durable Power of Logging Rafter Laborer: No (03/21/2016 05:21:Brenda Bronson RN) Living Will: No (03/21/2016 05:21:Brenda Bronson RN) Organ Donor: No (03/21/2016 05:21:Brenda Bronson RN) Pt Rights Information Given: Yes (03/21/2016 05:21:Brenda Bronson RN) Pt Understands Pt Rights: Yes (03/21/2016 05:21:Brenda Bronson RN) LEARNING ASSESSMENT Knowledge Level: Understands L_D Process; Understands Care Activities; Had Pre-Hospital Education; Understands Diagnosis (03/21/2016 05:21:Brenda Bronson RN) Barriers to Learning: Communication Barrier (03/21/2016 05:21:Brenda Bronson RN) Learning Readiness: Motivated (03/21/2016 05:21:Brenda Bronson RN) Learns Best By: 1 to 1 Instruction; Demonstration (03/21/2016 05:21:Brenda Bronson RN) Learning Needs: Labor and Delivery Process; Pain Management; Symptoms to Report; Treatment Plan; Medication; Diagnosis; Nutrition; Equipment; Infant Care; Community Resources (03/21/2016 05:21:Brenda Bronson RN) DOMESTIC VIOLANCE SCREENING Dom Viol Threatened/Hurt: No (03/21/2016 05:21:Brenda Bronson RN) Hx of Abuse/Neglect past 2yrs: No (03/21/2016 05:21:Brenda Bronson RN) Feel Unsafe Going Home: No (03/21/2016 05:21:Brenda Bronson RN) Addt'l Observ Indicating Abuse: No (03/21/2016 05:21:Brenda Bronson RN) Reason Unable to Complete Screen: N/A, Screen Completed (03/21/2016 05:21:Brenda Bronson RN) Considered Personal Harm/Suicide: No (03/21/2016 05:21:Brenda Bronson RN) NUTRITIONAL/FUNCTIONAL SCREENING Problem with Appetite >5 Days: No (03/21/2016 05:21:Brenda Bronson RN) Chew/Swallow Difficulties: No (03/21/2016 05:21:Brenda Bronson RN) Inappropriate Wt Gain/Loss: No (03/21/2016 05:21:Brenda Bronson RN) Presence Skin Breakdown/Ulcer: No (03/21/2016 05:21:Brenda Bronson RN) Special Diet: No (03/21/2016 05:21:Brenda Bronson RN) Pt Requests Senior Front End Web Developer Visit: No (03/21/2016 05:21:Brenda Bronson RN) Hx of Any of the Following?: N/A (03/21/2016 05:21:Brenda Bronson RN) New Diagnosis of: Gest Diabetes (03/21/2016 05:21:Brenda Bronson RN) Nutrition Comments: Pt on Glyburide (03/21/2016 05:21:Brenda Bronson RN) Requires Assist w/Ambulation: No (03/21/2016 05:21:Brenda Bronson RN) Uses Assist Device to Ambulate: No (03/21/2016 05:21:Brenda Bronson RN) Pt Requires Help w/ADL's: No (03/21/2016 05:21:Brenda Bronson RN)
[2016-03-23 08:32] VITALS: BP 120/66
[2016-03-23] MEDS: FERROUS SULFATE 325 MG TABLET PO SCH (09:23)
[2016-03-23] MEDS: PRENATAL VITAMIN W-O CA NO5/FE FUMARATE/FA CAPSULE PO SCH (09:23)
[2016-03-23] MEDS: DOCUSATE SODIUM 100 MG CAPSULE PO SCH (09:23)
[2016-03-23] MEDS: SENNOSIDES/DOCUSATE 8.6-50 MG 1 EACH TABLET PO SCH (09:23)
--- NOTE | 2016-03-23 10:16 | PDOC DISCHARGE SUMMARY ---
Discharge Summary-OB Discharge Date: 03/23/16 - Final Diagnosis (1) Vaginal delivery Is this a current diagnosis for this admission?: Yes - Discharge Medication Home Medications: Vits #90/Iron Fum/FA [ Formula Tablet] 1 each PO DAILY Docusate Sodium [Colace 100 mg Capsule] 100 mg PO BID #60 capsule 03/23/16 Ibuprofen [Motrin 800 mg Tablet] 800 mg PO Q8 #60 tablet 03/23/16 Gestational Age: 36.1 Reason(s) for Admission: Onset of Labor, Labor, Gestional Diabetes Procedures: NST Intrapartum Procedure(s): Spontaneous Vaginal Delivery Complication(s): Laceration-Periurethral Laceration-Degree: 1st - Data Baby 1 Female at 1 minute: 8 at 5 minutes: 9 Weight: 2590 kg Home with Mother: No Complications: No - - Diagnosis Test Laboratory: Temp Pulse Resp BP Pulse Ox 97.9 F 64 16 120/66 100 03/23/16 09:03 03/23/16 09:03 03/23/16 09:03 03/23/16 08:05 03/23/16 09:03 03/21/16 03/21/16 03/22/16 04:59 06:37 06:46 RBC 4.62 3.84 Hgb 13.2 11.0 L D Hct 39.1 32.9 L Urine Opiates Screen NEGATIVE - Discharge information/Instructions Discharge Activity: Activity As Tolerated, Balance Activity w/Rest, No Lifting Over 10 Pounds, No Lifting/Push/Pulling, Pelvic Rest, Walk Frequently Discharge Diet: Regular Disposition: HOME, SELF-CARE Follow up with: [facility] in: 4, Weeks - [place] patient
--- NOTE | 2016-03-24 06:15 | L&D General Admission ---
General Admit Datetime Report Generated by CPN: 03/24/2016 06:00 INFORMATION Patient Age: 25 (02/20/2016 14:04:QS system process) EDC: 04/17/2016 00:00 (02/20/2016 15:21:Neeru Grajeda RN) : 3 (02/20/2016 15:21:Gia Calderon RN) Para: 0 (02/20/2016 15:17:Zayra Jain RN) Term: 0 (02/20/2016 15:21:Zayra Jain RN) : 0 (02/20/2016 15:21:Zayra Jain RN) Spontaneous Abortions: 2 (02/20/2016 15:21:Zayra Jain RN) Induced Abortions: 0 (02/20/2016 15:21:Zayra Jain RN) Livin (02/20/2016 15:21:Zayra Jain RN) Cesareans: 0 (02/20/2016 15:21:Zayra Jain RN) VBACs: 0 (02/20/2016 15:21:Zayra Jain RN) Ectopic: 0 (02/20/2016 15:21:Zayra Jain RN) Multiple Births: 0 (02/20/2016 15:21:Zayra Jain RN) Baby, Number in Womb: 1 (02/20/2016 15:17:Neeru Grajeda RN) CARE Primary Curb And Gutter Laborer: [facility] (02/20/2016 15:21:Taylor Cee RN) Adequate Care: Yes (02/20/2016 15:21:Gia Calderon RN) Height (in): 61 (03/23/2016 10:15:QS system process) ALLERGIES Medication Allergy: No (02/20/2016 15:21:Gia Calderon RN) Medication Allergies: No Known Allergies (03/21/2016) (03/21/2016 05:01:QS system process) Latex Allergy: No Latex Allergies (02/20/2016 15:21:Gia Calderon, RN) Food Allergies: none (02/20/2016 15:21:Gia Calderon, RN) Environmental Allergies: none (02/20/2016 15:21:Gia Calderon, RN) COMMUNICATION Primary Language: Czech (02/20/2016 15:21:Gia Calderon, RN) Communication Barrier(s): Language barrier (02/20/2016 15:21:Gia Calderon, RN) DEMOGRAPHICS Address: [address] [place] [id number] (02/20/2016 14:04:QS system process) Zipcode: [address] (02/20/2016 14:04:QS system process) Home (02/20/2016 14:04:QS system process) Work (03/21/2016 04:38:QS system process) SSN: [id number] (02/20/2016 14:04:QS system process) Next of Kin Name: ESTHER GUTIERREZ (02/20/2016 14:04:QS system process) Next of Kin (02/20/2016 14:04:QS system process) Next of Kin Relationship: SPO (02/20/2016 14:04:QS system process) Date of : 1990 (02/20/2016 14:04:QS system process) Marital Status: (02/20/2016 14:04:QS system process) Sex: Female (02/20/2016 14:04:QS system process) Race: Other (02/20/2016 14:04:QS system process) Ethnicity: or (02/20/2016 14:04:QS system process) Faith: Other (02/20/2016 14:04:QS system process) FOB Involved: Yes (02/20/2016 15:21:Gia Calderon RN) Father of Baby Name: Esther Ashtonmasonkhari (02/20/2016 15:21:Gia Calderon RN) DRUG AND ALCOHOL USE Alcohol: No (02/20/2016 15:21:Gia Calderon RN) Cigarettes: Never Smoker. [id number] (02/20/2016 15:21:Gia Calderon RN) Marijuana: No (02/20/2016 15:21:Gia Calderon RN) Cocaine: No (02/20/2016 15:21:Gia Calderon RN) Other Illicit Drugs: No (02/20/2016 15:21:Gia Calderon RN) VACCINE HISTORY Influenza Vaccine: Uncertain (02/20/2016 15:21:Gia Calderon RN) Pneumococcal Vaccine: No (02/20/2016 15:21:Gia Calderon RN) Tetanus Vaccine: Uncertain (02/20/2016 15:21:Gia Calderon RN) Tdap Vaccine: Uncertain (02/20/2016 15:21:Gia Calderon RN) Hepatitis B Vaccine: Uncertain (02/20/2016 15:21:Gia Calderon RN) Stitch Bonding Machine Tender: [facility] (02/20/2016 15:21:Gia Calderon RN) Feeding Preference: Both (02/20/2016 15:21:Gia Calderon RN) Benefit of Breast Feed Discussed: Yes (02/20/2016 15:21:Brenda Bronson RN) Circumcision: N/A (02/20/2016 15:21:Gia Calderon RN) Classes Attended: No (02/20/2016 15:21:Gia Calderon RN) Tubal Ligation: No (02/20/2016 15:21:Gia Calderon RN) Tubal Authorization Signed: N/A (02/20/2016 15:21:Gia Calderon RN) Consent: N/A (02/20/2016 15:21:Gia Calderon RN) Consent Signed: N/A (02/20/2016 15:21:Gia Calderon RN) Other Pain Management Plans: unsure (02/20/2016 15:21:Gia Calderon RN) Plans for Labor and Delivery: None (02/20/2016 15:21:Gia Calderon RN) Support Person: Esther (02/20/2016 15:21:Gia Calderon RN) Support Person Relationship: (02/20/2016 15:21:Gia Calderon RN) Cultural/Spritual Practice: No (02/20/2016 15:21:Gia Calderon RN) Spir/Cult Dietary Needs: No (02/20/2016 15:21:Gia Calderon RN) LIVING SITUATION/DISCHARGE PLAN Living Arrangements: House (02/20/2016 15:21:Gia Calderon RN) Adequate Access to:: Electric; Heat; Refrigeration; Plumbing/Running water; Phone; Transportation (02/20/2016 15:21:Gia Calderon RN) WIC Program: Yes (02/20/2016 15:21:Gia Calderon RN) Discharge Assistant Site Manager Person: Esther (02/20/2016 15:21:Gia Calderon RN) Person to Help after Discharge: Esther (02/20/2016 15:21:Gia Calderon RN) Currently Using Commun Resources: Yes (02/20/2016 15:21:Gia Calderon RN) Specify Current Resource Used: WIC (02/20/2016 15:21:Gia Calderon RN) Outside Agency/Still Pump Operator: No (02/20/2016 15:21:Gia Calderon RN) Car Seat for Discharge: No (02/20/2016 15:21:Gia Calderon RN) Adoption Requested: No (02/20/2016 15:21:Gia Calderon RN) Pt Contact w/ Post : N/A (02/20/2016 15:21:Gia Calderon RN) LABS Blood Type: O Positive (02/20/2016 15:21:Zayra Jain RN) Antibody Screen: Negative (02/20/2016 15:21:Zayra Jain RN) Rho(G) this : Not Applicable (02/20/2016 15:21:Zayra Jain RN) Hemoglobin: 11.0 L (03/22/2016 06:46:QS system process) Hematocrit: 32.9 L (03/22/2016 06:46:QS system process) MCV: 86 (03/22/2016 06:46:QS system process) Group Beta Strep: Unknown (02/20/2016 15:21:Gia Calderon RN) Gonorrhea: Negative (02/20/2016 15:21:Brenda Bronson RN) Chlamydia: Negative (02/20/2016 15:21:Brenda Bronson RN) RPR/VDRL: Nonreactive (02/20/2016 15:21:Zayra Jain RN) HIV Results: Negative (02/20/2016 15:21:Zayra Jain RN) Hepatitis B: Negative (02/20/2016 15:21:Zayra Jain RN) Rubella: Immune (02/20/2016 15:21:Zayra Jain RN) Varicella: Non Susceptible (02/20/2016 15:21:Zayra Jain RN) OB/PREVIOUS HISTORY Current Procedures: Ultrasound; NST (02/20/2016 15:21:Gia Calderon RN) History of Previous : No (02/20/2016 15:21:Gia Calderon RN) History of Gestational Diabetes: Yes (02/20/2016 15:21:Gia Calderon RN) History of PIH: No (02/20/2016 15:21:Gia Calderon RN) History of Incompetent Cervix: No (02/20/2016 15:21:Gia Calderon RN) History of Placenta Previa/Abrup: No (02/20/2016 15:21:Gia Calderon RN) History of Macrosomia: No (02/20/2016 15:21:Gia Calderon RN) History of IUGR: No (02/20/2016 15:21:Gia Calderon RN) History of Hemorrhage: No (02/20/2016 15:21:Gia Calderon RN) History of Loss/Stillborn: No (02/20/2016 15:21:Gia Calderon RN) History of : No (02/20/2016 15:21:Gia Calderon RN) History of D (Rh) Sensitization: No (02/20/2016 15:21:Gia Calderon RN) History Recurrent Loss/Stillborn: No (02/20/2016 15:21:Gia Calderon RN) History Depression/PP Depression: No (02/20/2016 15:21:Gia Calderon RN) History of Uterine Anomaly/RITESH: No (02/20/2016 15:21:Gia Calderon RN) History of Infertility: No (02/20/2016 15:21:Gia Calderon RN) History of ART Treatment: No (02/20/2016 15:21:Gia Calderon RN) History of RITESH: No (02/20/2016 15:21:Gia Calderon RN) Comments Obstetrical History: G1: 2010 G2: 2014 G3: Current (02/20/2016 15:21:Gia Calderon RN) MEDICAL HISTORY Med Hx Diabetes: No (02/20/2016 15:21:Gia Calderon RN) Diabetes Type: Gestational Diabetes (02/20/2016 15:21:Brenda Bronson RN) Med Hx Hypertension: No (02/20/2016 15:21:Gia Calderon RN) Med Hx Heart Disease: No (02/20/2016 15:21:Gia Calderon RN) Med Hx Autoimmune Disorder: No (02/20/2016 15:21:Gia Calderon RN) Med Hx Kidney Disease/UTI: No (02/20/2016 15:21:Gia Calderon RN) Med Hx Neurologic/Epilepsy: No (02/20/2016 15:21:Gia Calderon RN) Med Hx Psychiatric Disorders: No (02/20/2016 15:21:Gia Calderon RN) Med Hx Hepatitis/Liver Disease: No (02/20/2016 15:21:Gia Calderon RN) Med Hx Varicosities/Phlebitis: No (02/20/2016 15:21:Gia Calderon RN) Med Hx Thyroid Dysfunction: No (02/20/2016 15:21:Gia Calderon RN) Med Hx Trauma/Violence: No (02/20/2016 15:21:Gia Calderon RN) Med Hx Blood Transfusion: No (02/20/2016 15:21:Gia Calderon RN) Med Hx Pulmonary (Asthma,TB): No (02/20/2016 15:21:Gia Calderon RN) Med Hx Breast: No (02/20/2016 15:21:Gia Calderon RN) Med Hx INSOLE TAPER Surgery: No (02/20/2016 15:21:Gia Calderon RN) Med Hx Hospitalization/Surgery: No (02/20/2016 15:21:Gia Calderon RN) Med Hx Anesthetic Complications: No (02/20/2016 15:21:Gia Calderon RN) Med Hx Abnormal Pap Smear: No (02/20/2016 15:21:Gia Calderon RN) Other Medical Diseases: No (02/20/2016 15:21:Gia Calderon RN) Med Hx Significant Family Hx: No (02/20/2016 15:21:Gia Calderon RN) Details of Med/Surg Hx: Pt taking Glyburide (02/20/2016 15:21:Brenda Bronson RN) INFECTIOUS HISTORY Inf Hx Gonorrhea: No (02/20/2016 15:21:Gia Calderon RN) Inf Hx Chlamydia: No (02/20/2016 15:21:Gia Calderon RN) Inf Hx Syphilis: No (02/20/2016 15:21:Gia Calderon RN) Inf Hx HIV/AIDS: No (02/20/2016 15:21:Gia Calderon RN) Inf Hx Human Papilloma Virus: No (02/20/2016 15:21:Gia Calderon RN) Inf Hx Pt/Partner Genital Herpes: No (02/20/2016 15:21:Gia Calderon RN) Inf Hx Tuberculosis/Exposure: No (02/20/2016 15:21:Gia Calderon RN) Inf Hx Hepatitis B,C: No (02/20/2016 15:21:Gia Calderon RN) Inf Hx Rash or Viral Illness: No (02/20/2016 15:21:Gia Calderon RN) GENETIC HISTORY Gen Hx Age >=35 at VAHID: No (02/20/2016 15:21:Gia Calderon RN) Gen Hx Thalassemia: No (02/20/2016 15:21:Gia Calderon RN) Gen Hx Congenital Heart Defect: No (02/20/2016 15:21:Gia Calderon RN) Gen Hx Neural Tube Defect: No (02/20/2016 15:21:Gia Calderon RN) Gen Hx Down's Syndrome: No (02/20/2016 15:21:Gia Calderon RN) Gen Hx Leif-Sachs: No (02/20/2016 15:21:Gia Calderon RN) Gen Hx Keesha: No (02/20/2016 15:21:Gia Calderon RN) Gen Hx Familial Dysautonomia: No (02/20/2016 15:21:Gia Calderon RN) Gen Hx Sickle Cell Disease/Trait: No (02/20/2016 15:21:Gia Calderon RN) Gen Hx Hemophilia/Blood Disorder: No (02/20/2016 15:21:Gia Calderon RN) Gen Hx Muscular Dystrophy: No (02/20/2016 15:21:Gia Calderon RN) Gen Hx Cystic Fibrosis: No (02/20/2016 15:21:Gia Calderon RN) Gen Hx Huntingtons Chorea: No (02/20/2016 15:21:Gia Calderon RN) Gen Hx Mental Retardation/Autism: No (02/20/2016 15:21:Gia Calderon RN) Gen Hx Tested for Fragile X: No (02/20/2016 15:21:Gia Calderon RN) Gen Hx Other Inher/Chromosomal: No (02/20/2016 15:21:Gia Calderon RN) Gen Hx Maternal Metabolic DO: No (02/20/2016 15:21:Gia Calderon RN) Gen Hx Pt Father or FOB Defect: No (02/20/2016 15:21:Gia Calderon RN) Gen Hx Other Genetic History: No (02/20/2016 15:21:Gia Calderon RN) Gen Hx Drugs/Meds since LMP: No (02/20/2016 15:21:Gia Calderon RN)
--- NOTE | 2016-03-25 06:14 | L&D General Admission ---
General Admit Datetime Report Generated by CPN: 03/25/2016 06:00 INFORMATION Patient Age: 25 (02/20/2016 14:04:QS system process) EDC: 04/17/2016 00:00 (02/20/2016 15:21:Neeru Grajeda RN) : 3 (02/20/2016 15:21:Gia Calderon RN) Para: 0 (02/20/2016 15:17:Zayra Jain RN) Term: 0 (02/20/2016 15:21:Zayra Jain RN) : 0 (02/20/2016 15:21:Zayra Jain RN) Spontaneous Abortions: 2 (02/20/2016 15:21:Zayra Jain RN) Induced Abortions: 0 (02/20/2016 15:21:Zayra Jain RN) Livin (02/20/2016 15:21:Zayra Jain RN) Cesareans: 0 (02/20/2016 15:21:Zayra Jain RN) VBACs: 0 (02/20/2016 15:21:Zayra Jain RN) Ectopic: 0 (02/20/2016 15:21:Zayra Jain RN) Multiple Births: 0 (02/20/2016 15:21:Zayra Jain RN) Baby, Number in Womb: 1 (02/20/2016 15:17:Neeru Grajeda RN) CARE Primary Proof Technician: [facility] (02/20/2016 15:21:Taylor Cee RN) Adequate Care: Yes (02/20/2016 15:21:Gia Calderon RN) Height (in): 61 (03/23/2016 10:15:QS system process) ALLERGIES Medication Allergy: No (02/20/2016 15:21:Gia Calderon RN) Medication Allergies: No Known Allergies (03/21/2016) (03/21/2016 05:01:QS system process) Latex Allergy: No Latex Allergies (02/20/2016 15:21:Gia Calderon, RN) Food Allergies: none (02/20/2016 15:21:Gia Calderon, RN) Environmental Allergies: none (02/20/2016 15:21:Gia Calderon, RN) COMMUNICATION Primary Language: Hungarian (02/20/2016 15:21:Gia Calderon, RN) Communication Barrier(s): Language barrier (02/20/2016 15:21:Gia Calderon, RN) DEMOGRAPHICS Address: [address] [place] [id number] (02/20/2016 14:04:QS system process) Zipcode: [address] (02/20/2016 14:04:QS system process) Home (02/20/2016 14:04:QS system process) Work (03/21/2016 04:38:QS system process) SSN: [id number] (02/20/2016 14:04:QS system process) Next of Kin Name: ESTHER GUTIERREZ (02/20/2016 14:04:QS system process) Next of Kin (02/20/2016 14:04:QS system process) Next of Kin Relationship: SPO (02/20/2016 14:04:QS system process) Date of : 1990 (02/20/2016 14:04:QS system process) Marital Status: (02/20/2016 14:04:QS system process) Sex: Female (02/20/2016 14:04:QS system process) Race: Other (02/20/2016 14:04:QS system process) Ethnicity: or (02/20/2016 14:04:QS system process) Lutheran: Other (02/20/2016 14:04:QS system process) FOB Involved: Yes (02/20/2016 15:21:Gia Calderon RN) Father of Baby Name: Esther Ashtonmasonkhari (02/20/2016 15:21:Gia Calderon RN) DRUG AND ALCOHOL USE Alcohol: No (02/20/2016 15:21:Gia Calderon RN) Cigarettes: Never Smoker. [id number] (02/20/2016 15:21:Gia Calderon RN) Marijuana: No (02/20/2016 15:21:Gia Calderon RN) Cocaine: No (02/20/2016 15:21:Gia Calderon RN) Other Illicit Drugs: No (02/20/2016 15:21:Gia Calderon RN) VACCINE HISTORY Influenza Vaccine: Uncertain (02/20/2016 15:21:Gia Calderon RN) Pneumococcal Vaccine: No (02/20/2016 15:21:Gia Calderon RN) Tetanus Vaccine: Uncertain (02/20/2016 15:21:Gia Calderon RN) Tdap Vaccine: Uncertain (02/20/2016 15:21:Gia Calderon RN) Hepatitis B Vaccine: Uncertain (02/20/2016 15:21:Gia Calderon RN) School Year Nanny: [employer] (02/20/2016 15:21:Gia Calderon RN) Feeding Preference: Both (02/20/2016 15:21:Gia Calderon RN) Benefit of Breast Feed Discussed: Yes (02/20/2016 15:21:Brenda Bronson RN) Circumcision: N/A (02/20/2016 15:21:Gia Calderon RN) Classes Attended: No (02/20/2016 15:21:Gia Calderon RN) Tubal Ligation: No (02/20/2016 15:21:Gia Calderon RN) Tubal Authorization Signed: N/A (02/20/2016 15:21:Gia Calderon RN) Consent: N/A (02/20/2016 15:21:Gia Calderon RN) Consent Signed: N/A (02/20/2016 15:21:Gia Calderon RN) Other Pain Management Plans: unsure (02/20/2016 15:21:Gia Calderon RN) Plans for Labor and Delivery: None (02/20/2016 15:21:Gia Calderon RN) Support Person: Esther (02/20/2016 15:21:Gia Calderon RN) Support Person Relationship: (02/20/2016 15:21:Gia Calderon RN) Cultural/Spritual Practice: No (02/20/2016 15:21:Gia Calderon RN) Spir/Cult Dietary Needs: No (02/20/2016 15:21:Gia Calderon RN) LIVING SITUATION/DISCHARGE PLAN Living Arrangements: House (02/20/2016 15:21:Gia Calderon RN) Adequate Access to:: Electric; Heat; Refrigeration; Plumbing/Running water; Phone; Transportation (02/20/2016 15:21:Gia Calderon RN) WIC Program: Yes (02/20/2016 15:21:Gia Calderon RN) Discharge Steward/Stewardess Person: Esther (02/20/2016 15:21:Gia Calderon RN) Person to Help after Discharge: Esther (02/20/2016 15:21:Gia Calderon RN) Currently Using Commun Resources: Yes (02/20/2016 15:21:Gia Calderon RN) Specify Current Resource Used: WIC (02/20/2016 15:21:Gia Calderon RN) Outside Agency/Pss Delivery Professional: No (02/20/2016 15:21:Gia Calderon RN) Car Seat for Discharge: No (02/20/2016 15:21:Gia Calderon RN) Adoption Requested: No (02/20/2016 15:21:Gia Calderon RN) Pt Contact w/ Post : N/A (02/20/2016 15:21:Gia Calderon RN) LABS Blood Type: O Positive (02/20/2016 15:21:Zayra Jain RN) Antibody Screen: Negative (02/20/2016 15:21:Zayra Jain RN) Rho(G) this : Not Applicable (02/20/2016 15:21:Zayra Jain RN) Hemoglobin: 11.0 L (03/22/2016 06:46:QS system process) Hematocrit: 32.9 L (03/22/2016 06:46:QS system process) MCV: 86 (03/22/2016 06:46:QS system process) Group Beta Strep: Unknown (02/20/2016 15:21:Gia Calderon RN) Gonorrhea: Negative (02/20/2016 15:21:Brenda Bornson RN) Chlamydia: Negative (02/20/2016 15:21:Brenda Bronson RN) RPR/VDRL: Nonreactive (02/20/2016 15:21:Zayra Jain RN) HIV Results: Negative (02/20/2016 15:21:Zayra Jain RN) Hepatitis B: Negative (02/20/2016 15:21:Zayra Jain RN) Rubella: Immune (02/20/2016 15:21:Zayra Jain RN) Varicella: Non Susceptible (02/20/2016 15:21:Zayra Jain RN) OB/PREVIOUS HISTORY Current Procedures: Ultrasound; NST (02/20/2016 15:21:Gia Calderon RN) History of Previous : No (02/20/2016 15:21:Gia Calderon RN) History of Gestational Diabetes: Yes (02/20/2016 15:21:Gia Calderon RN) History of PIH: No (02/20/2016 15:21:Gia Calderon RN) History of Incompetent Cervix: No (02/20/2016 15:21:Gia Calderon RN) History of Placenta Previa/Abrup: No (02/20/2016 15:21:Gia Calderon RN) History of Macrosomia: No (02/20/2016 15:21:Gia Calderon RN) History of IUGR: No (02/20/2016 15:21:Gia Calderon RN) History of Hemorrhage: No (02/20/2016 15:21:Gia Calderon RN) History of Loss/Stillborn: No (02/20/2016 15:21:Gia Calderon RN) History of : No (02/20/2016 15:21:Gia Calderon RN) History of D (Rh) Sensitization: No (02/20/2016 15:21:Gia Calderon RN) History Recurrent Loss/Stillborn: No (02/20/2016 15:21:Gia Calderon RN) History Depression/PP Depression: No (02/20/2016 15:21:Gia Calderon RN) History of Uterine Anomaly/RITESH: No (02/20/2016 15:21:Gia Calderon RN) History of Infertility: No (02/20/2016 15:21:Gia Calderon RN) History of ART Treatment: No (02/20/2016 15:21:Gia Calderon RN) History of RITESH: No (02/20/2016 15:21:Gia Calderon RN) Comments Obstetrical History: G1: 2010 G2: 2014 G3: Current (02/20/2016 15:21:Gia Calderon RN) MEDICAL HISTORY Med Hx Diabetes: No (02/20/2016 15:21:Gia Calderon RN) Diabetes Type: Gestational Diabetes (02/20/2016 15:21:Brenda Bronson RN) Med Hx Hypertension: No (02/20/2016 15:21:Gia Calderon RN) Med Hx Heart Disease: No (02/20/2016 15:21:Gia Calderon RN) Med Hx Autoimmune Disorder: No (02/20/2016 15:21:Gia Calderon RN) Med Hx Kidney Disease/UTI: No (02/20/2016 15:21:Gia Calderon RN) Med Hx Neurologic/Epilepsy: No (02/20/2016 15:21:Gia Calderon RN) Med Hx Psychiatric Disorders: No (02/20/2016 15:21:Gia Calderon RN) Med Hx Hepatitis/Liver Disease: No (02/20/2016 15:21:Gia Calderon RN) Med Hx Varicosities/Phlebitis: No (02/20/2016 15:21:Gia Calderon RN) Med Hx Thyroid Dysfunction: No (02/20/2016 15:21:Gia Calderon RN) Med Hx Trauma/Violence: No (02/20/2016 15:21:Gia Calderon RN) Med Hx Blood Transfusion: No (02/20/2016 15:21:Gia Calderon RN) Med Hx Pulmonary (Asthma,TB): No (02/20/2016 15:21:Gia Calderon RN) Med Hx Breast: No (02/20/2016 15:21:Gia Calderon RN) Med Hx CRAB BUTCHER Surgery: No (02/20/2016 15:21:Gia Calderon RN) Med Hx Hospitalization/Surgery: No (02/20/2016 15:21:Gia Calderon RN) Med Hx Anesthetic Complications: No (02/20/2016 15:21:Gia Calderon RN) Med Hx Abnormal Pap Smear: No (02/20/2016 15:21:Gia Calderon RN) Other Medical Diseases: No (02/20/2016 15:21:Gia Calderon RN) Med Hx Significant Family Hx: No (02/20/2016 15:21:Gia Calderon RN) Details of Med/Surg Hx: Pt taking Glyburide (02/20/2016 15:21:Brenda Bronson RN) INFECTIOUS HISTORY Inf Hx Gonorrhea: No (02/20/2016 15:21:Gia Calderon RN) Inf Hx Chlamydia: No (02/20/2016 15:21:Gia Calderon RN) Inf Hx Syphilis: No (02/20/2016 15:21:Gia Calderon RN) Inf Hx HIV/AIDS: No (02/20/2016 15:21:Gia Calderon RN) Inf Hx Human Papilloma Virus: No (02/20/2016 15:21:Gia Calderon RN) Inf Hx Pt/Partner Genital Herpes: No (02/20/2016 15:21:Gia Calderon RN) Inf Hx Tuberculosis/Exposure: No (02/20/2016 15:21:Gia Calderon RN) Inf Hx Hepatitis B,C: No (02/20/2016 15:21:Gia Calderon RN) Inf Hx Rash or Viral Illness: No (02/20/2016 15:21:Gia Calderon RN) GENETIC HISTORY Gen Hx Age >=35 at VAHID: No (02/20/2016 15:21:Gia Calderon RN) Gen Hx Thalassemia: No (02/20/2016 15:21:Gia Calderon RN) Gen Hx Congenital Heart Defect: No (02/20/2016 15:21:Gia Calderon RN) Gen Hx Neural Tube Defect: No (02/20/2016 15:21:Gia Calderon RN) Gen Hx Down's Syndrome: No (02/20/2016 15:21:Gia Calderon RN) Gen Hx Leif-Sachs: No (02/20/2016 15:21:Gia Calderon RN) Gen Hx Keesha: No (02/20/2016 15:21:Gia Calderon RN) Gen Hx Familial Dysautonomia: No (02/20/2016 15:21:Gia Calderon RN) Gen Hx Sickle Cell Disease/Trait: No (02/20/2016 15:21:Gia Calderon RN) Gen Hx Hemophilia/Blood Disorder: No (02/20/2016 15:21:Gia Calderon RN) Gen Hx Muscular Dystrophy: No (02/20/2016 15:21:Gia Calderon RN) Gen Hx Cystic Fibrosis: No (02/20/2016 15:21:Gia Calderon RN) Gen Hx Huntingtons Chorea: No (02/20/2016 15:21:Gia Calderon RN) Gen Hx Mental Retardation/Autism: No (02/20/2016 15:21:Gia Calderon RN) Gen Hx Tested for Fragile X: No (02/20/2016 15:21:Gia Calderon RN) Gen Hx Other Inher/Chromosomal: No (02/20/2016 15:21:Gia Calderon RN) Gen Hx Maternal Metabolic DO: No (02/20/2016 15:21:Gia Calderon RN) Gen Hx Pt Father or FOB Defect: No (02/20/2016 15:21:Gia Calderon RN) Gen Hx Other Genetic History: No (02/20/2016 15:21:Gia Calderon RN) Gen Hx Drugs/Meds since LMP: No (02/20/2016 15:21:Gia Calderon RN)
--- NOTE | 2016-03-25 06:14 | L&D Current Admission ---
Current Admit Datetime Report Generated by CPN: 03/25/2016 06:00 ADMISSION INFORMATION Current Admit Date/Time: 03/21/2016 06:24 (03/21/2016 05:21:Brenda Bronson RN) Reason for Admission: Onset of Labor; Rupture of Membranes (03/21/2016 05:21:Brenda Bronson RN) Chief Complaint: Contractions (03/21/2016 05:21:Gia Calderon RN) EGA per Dates: 36.1 (03/21/2016 05:21:QS system process) Method of Arrival: Wheelchair (03/21/2016 05:21:Brenda Bronson RN) Admitted From: Home (03/21/2016 05:21:Brenda Bronson RN) Reason for Induction: Not Applicable (03/21/2016 05:21:Brenda Bronson RN) Records Available: Yes (03/21/2016 05:21:Brenda Bronson RN) General Admission Information: Reviewed; Updated; Confirmed (03/21/2016 05:21:Brenda Bronson RN) General Admission Reviewed By: Adrien Bronson RN (03/21/2016 05:21:Brenda Bronson RN) BELONGINGS/ADVANCED DIRECTIVES Valuables/Personal Effects: Cell Phone (03/21/2016 05:21:Brenda Bronson RN) Other Belongings: See belongings sheet (03/21/2016 05:21:Brenda Bronson RN) Disposition of Belongings: Kept with Patient (03/21/2016 05:21:Brenda Bronson RN) Advance Direct for Healthcare: No, and Wants No Information (03/21/2016 05:21:Brenda Bronson RN) Durable Power of Driller Portable: No (03/21/2016 05:21:Brenda Bronson RN) Living Will: No (03/21/2016 05:21:Brenda Bronson RN) Organ Donor: No (03/21/2016 05:21:Brenda Bronson RN) Pt Rights Information Given: Yes (03/21/2016 05:21:Brenda Bronson RN) Pt Understands Pt Rights: Yes (03/21/2016 05:21:Brenda Bronson RN) LEARNING ASSESSMENT Knowledge Level: Understands L_D Process; Understands Care Activities; Had Pre-Hospital Education; Understands Diagnosis (03/21/2016 05:21:Brenda Bronson RN) Barriers to Learning: Communication Barrier (03/21/2016 05:21:Brenda Bronson RN) Learning Readiness: Motivated (03/21/2016 05:21:Brenda Bronson RN) Learns Best By: 1 to 1 Instruction; Demonstration (03/21/2016 05:21:Brenda Bronson RN) Learning Needs: Labor and Delivery Process; Pain Management; Symptoms to Report; Treatment Plan; Medication; Diagnosis; Nutrition; Equipment; Infant Care; Community Resources (03/21/2016 05:21:Brenda Bronson RN) DOMESTIC VIOLANCE SCREENING Dom Viol Threatened/Hurt: No (03/21/2016 05:21:Brenda Bronson RN) Hx of Abuse/Neglect past 2yrs: No (03/21/2016 05:21:Brenda Bronson RN) Feel Unsafe Going Home: No (03/21/2016 05:21:Brenda Bronson RN) Addt'l Observ Indicating Abuse: No (03/21/2016 05:21:Brenda Bronson RN) Reason Unable to Complete Screen: N/A, Screen Completed (03/21/2016 05:21:Brenda Bronson RN) Considered Personal Harm/Suicide: No (03/21/2016 05:21:Brenda Bronson RN) NUTRITIONAL/FUNCTIONAL SCREENING Problem with Appetite >5 Days: No (03/21/2016 05:21:Bernda Bronson RN) Chew/Swallow Difficulties: No (03/21/2016 05:21:Brenda Bronson RN) Inappropriate Wt Gain/Loss: No (03/21/2016 05:21:Brenda Bronson RN) Presence Skin Breakdown/Ulcer: No (03/21/2016 05:21:Brenda Bronson RN) Special Diet: No (03/21/2016 05:21:Brenda Bronson RN) Pt Requests Correctional Program Officer Visit: No (03/21/2016 05:21:Brenda Bronson RN) Hx of Any of the Following?: N/A (03/21/2016 05:21:Brenda Bronson RN) New Diagnosis of: Gest Diabetes (03/21/2016 05:21:Brenda Bronson RN) Nutrition Comments: Pt on Glyburide (03/21/2016 05:21:Brenda Bronson RN) Requires Assist w/Ambulation: No (03/21/2016 05:21:Brenda Bronson RN) Uses Assist Device to Ambulate: No (03/21/2016 05:21:Brenda Bronson RN) Pt Requires Help w/ADL's: No (03/21/2016 05:21:Brenda Bronson RN)
--- NOTE | 2016-03-26 06:14 | L&D General Admission ---
General Admit Datetime Report Generated by CPN: 03/26/2016 06:00 INFORMATION Patient Age: 25 (02/20/2016 14:04:QS system process) EDC: 04/17/2016 00:00 (02/20/2016 15:21:Neeru Grajeda RN) : 3 (02/20/2016 15:21:Gia Calderon RN) Para: 0 (02/20/2016 15:17:Zayra Jain RN) Term: 0 (02/20/2016 15:21:Zayra Jain RN) : 0 (02/20/2016 15:21:Zayra Jain RN) Spontaneous Abortions: 2 (02/20/2016 15:21:Zayra Jain RN) Induced Abortions: 0 (02/20/2016 15:21:Zayra Jain RN) Livin (02/20/2016 15:21:Zayra Jain RN) Cesareans: 0 (02/20/2016 15:21:Zayra Jain RN) VBACs: 0 (02/20/2016 15:21:Zayra Jain RN) Ectopic: 0 (02/20/2016 15:21:Zayra Jain RN) Multiple Births: 0 (02/20/2016 15:21:Zayra Jain RN) Baby, Number in Womb: 1 (02/20/2016 15:17:Neeru Grajeda RN) CARE Primary Automation Engineering Technician: [facility] Department (02/20/2016 15:21:Taylor Cee RN) Adequate Care: Yes (02/20/2016 15:21:Gia Calderon RN) Height (in): 61 (03/23/2016 10:15:QS system process) ALLERGIES Medication Allergy: No (02/20/2016 15:21:Gia Calderon RN) Medication Allergies: No Known Allergies (03/21/2016) (03/21/2016 05:01:QS system process) Latex Allergy: No Latex Allergies (02/20/2016 15:21:Gia Calderon, RN) Food Allergies: none (02/20/2016 15:21:Gia Calderon, RN) Environmental Allergies: none (02/20/2016 15:21:Gia Calderon, RN) COMMUNICATION Primary Language: Malay (02/20/2016 15:21:Gia Calderon, RN) Communication Barrier(s): Language barrier (02/20/2016 15:21:Gia Calderon, RN) DEMOGRAPHICS Address: [address] [place] [id number] (02/20/2016 14:04:QS system process) Zipcode: [address] (02/20/2016 14:04:QS system process) Home (02/20/2016 14:04:QS system process) Work (03/21/2016 04:38:QS system process) SSN: [id number] (02/20/2016 14:04:QS system process) Next of Kin Name: ESTHER GUTIERREZ (02/20/2016 14:04:QS system process) Next of Kin (02/20/2016 14:04:QS system process) Next of Kin Relationship: SPO (02/20/2016 14:04:QS system process) Date of : 1990 (02/20/2016 14:04:QS system process) Marital Status: (02/20/2016 14:04:QS system process) Sex: Female (02/20/2016 14:04:QS system process) Race: Other (02/20/2016 14:04:QS system process) Ethnicity: or (02/20/2016 14:04:QS system process) Yarsanism: Other (02/20/2016 14:04:QS system process) FOB Involved: Yes (02/20/2016 15:21:Gia Calderon RN) Father of Baby Name: Esther Ashtonmasonkhari (02/20/2016 15:21:Gia Calderon RN) DRUG AND ALCOHOL USE Alcohol: No (02/20/2016 15:21:Gia Calderon RN) Cigarettes: Never Smoker. [id number] (02/20/2016 15:21:Gia Calderon RN) Marijuana: No (02/20/2016 15:21:Gia Calderon RN) Cocaine: No (02/20/2016 15:21:Gia Calderon RN) Other Illicit Drugs: No (02/20/2016 15:21:Gia Calderon RN) VACCINE HISTORY Influenza Vaccine: Uncertain (02/20/2016 15:21:Gia Calderon RN) Pneumococcal Vaccine: No (02/20/2016 15:21:Gia Calderon RN) Tetanus Vaccine: Uncertain (02/20/2016 15:21:iGa Calderon RN) Tdap Vaccine: Uncertain (02/20/2016 15:21:Gia Calderon RN) Hepatitis B Vaccine: Uncertain (02/20/2016 15:21:Gia Calderon RN) Kiss Mixer: Health Department (02/20/2016 15:21:Gia Calderon RN) Feeding Preference: Both (02/20/2016 15:21:Gia Calderon RN) Benefit of Breast Feed Discussed: Yes (02/20/2016 15:21:Brenda Bronson RN) Circumcision: N/A (02/20/2016 15:21:Gia Calderon RN) Classes Attended: No (02/20/2016 15:21:Gia Calderon RN) Tubal Ligation: No (02/20/2016 15:21:Gia Calderon RN) Tubal Authorization Signed: N/A (02/20/2016 15:21:Gia Calderon RN) Consent: N/A (02/20/2016 15:21:Gia Calderon RN) Consent Signed: N/A (02/20/2016 15:21:Gia Calderon RN) Other Pain Management Plans: unsure (02/20/2016 15:21:Gia Calderon RN) Plans for Labor and Delivery: None (02/20/2016 15:21:Gia Calderon RN) Support Person: Esther (02/20/2016 15:21:Gia Calderon RN) Support Person Relationship: (02/20/2016 15:21:Gia Calderon RN) Cultural/Spritual Practice: No (02/20/2016 15:21:Gia Calderon RN) Spir/Cult Dietary Needs: No (02/20/2016 15:21:Gia Calderon RN) LIVING SITUATION/DISCHARGE PLAN Living Arrangements: House (02/20/2016 15:21:Gia Calderon RN) Adequate Access to:: Electric; Heat; Refrigeration; Plumbing/Running water; Phone; Transportation (02/20/2016 15:21:Gia Calderon RN) WIC Program: Yes (02/20/2016 15:21:Gia Calderon RN) Discharge Lining Sewer Person: Esther (02/20/2016 15:21:Gia Calderon RN) Person to Help after Discharge: Esther (02/20/2016 15:21:Gia Calderon RN) Currently Using Commun Resources: Yes (02/20/2016 15:21:Gia Calderon RN) Specify Current Resource Used: WIC (02/20/2016 15:21:Gia Calderon RN) Outside Agency/Inspector Firearms: No (02/20/2016 15:21:Gia Calderon RN) Car Seat for Discharge: No (02/20/2016 15:21:Gia Calderon RN) Adoption Requested: No (02/20/2016 15:21:Gia Calderon RN) Pt Contact w/ Post : N/A (02/20/2016 15:21:Gia Calderon RN) LABS Blood Type: O Positive (02/20/2016 15:21:Zayra Jain RN) Antibody Screen: Negative (02/20/2016 15:21:Zayra Jain RN) Rho(G) this : Not Applicable (02/20/2016 15:21:Zayra Jain RN) Hemoglobin: 11.0 L (03/22/2016 06:46:QS system process) Hematocrit: 32.9 L (03/22/2016 06:46:QS system process) MCV: 86 (03/22/2016 06:46:QS system process) Group Beta Strep: Unknown (02/20/2016 15:21:Gia Calderon RN) Gonorrhea: Negative (02/20/2016 15:21:Brenda Bronson RN) Chlamydia: Negative (02/20/2016 15:21:Brenda Bronson RN) RPR/VDRL: Nonreactive (02/20/2016 15:21:Zayra Jain RN) HIV Results: Negative (02/20/2016 15:21:Zayra Jain RN) Hepatitis B: Negative (02/20/2016 15:21:Zayra Jain RN) Rubella: Immune (02/20/2016 15:21:Zayra Jain RN) Varicella: Non Susceptible (02/20/2016 15:21:Zayra Jain RN) OB/PREVIOUS HISTORY Current Procedures: Ultrasound; NST (02/20/2016 15:21:Gia Calderon RN) History of Previous : No (02/20/2016 15:21:Gia Calderon RN) History of Gestational Diabetes: Yes (02/20/2016 15:21:Gia Calderon RN) History of PIH: No (02/20/2016 15:21:Gia Calderon RN) History of Incompetent Cervix: No (02/20/2016 15:21:Gia Calderon RN) History of Placenta Previa/Abrup: No (02/20/2016 15:21:Gia Calderon RN) History of Macrosomia: No (02/20/2016 15:21:Gia Calderon RN) History of IUGR: No (02/20/2016 15:21:Gia Calderon RN) History of Hemorrhage: No (02/20/2016 15:21:Gia Calderon RN) History of Loss/Stillborn: No (02/20/2016 15:21:Gia Calderon RN) History of : No (02/20/2016 15:21:Gia Calderon RN) History of D (Rh) Sensitization: No (02/20/2016 15:21:Gia Calderon RN) History Recurrent Loss/Stillborn: No (02/20/2016 15:21:Gia Calderon RN) History Depression/PP Depression: No (02/20/2016 15:21:Gia Calderon RN) History of Uterine Anomaly/RITESH: No (02/20/2016 15:21:Gia Calderon RN) History of Infertility: No (02/20/2016 15:21:Gia Calderon RN) History of ART Treatment: No (02/20/2016 15:21:Gia Calderon RN) History of RITESH: No (02/20/2016 15:21:Gia Calderon RN) Comments Obstetrical History: G1: 2010 G2: 2014 G3: Current (02/20/2016 15:21:Gia Calderon RN) MEDICAL HISTORY Med Hx Diabetes: No (02/20/2016 15:21:Gia Calderon RN) Diabetes Type: Gestational Diabetes (02/20/2016 15:21:Brenda Bronson RN) Med Hx Hypertension: No (02/20/2016 15:21:Gia Calderon RN) Med Hx Heart Disease: No (02/20/2016 15:21:Gia Calderon RN) Med Hx Autoimmune Disorder: No (02/20/2016 15:21:Gia Calderon RN) Med Hx Kidney Disease/UTI: No (02/20/2016 15:21:Gia Calderon RN) Med Hx Neurologic/Epilepsy: No (02/20/2016 15:21:Gia Calderon RN) Med Hx Psychiatric Disorders: No (02/20/2016 15:21:Gia Calderon RN) Med Hx Hepatitis/Liver Disease: No (02/20/2016 15:21:Gia Calderon RN) Med Hx Varicosities/Phlebitis: No (02/20/2016 15:21:Gia Calderon RN) Med Hx Thyroid Dysfunction: No (02/20/2016 15:21:Gia Calderon RN) Med Hx Trauma/Violence: No (02/20/2016 15:21:Gia Calderon RN) Med Hx Blood Transfusion: No (02/20/2016 15:21:Gia Calderon RN) Med Hx Pulmonary (Asthma,TB): No (02/20/2016 15:21:Gia Calderon RN) Med Hx Breast: No (02/20/2016 15:21:Gia Calderon RN) Med Hx BUTTONHOLE MAKER HAND Surgery: No (02/20/2016 15:21:Gia Calderon RN) Med Hx Hospitalization/Surgery: No (02/20/2016 15:21:Gia Calderon RN) Med Hx Anesthetic Complications: No (02/20/2016 15:21:Gia Calderon RN) Med Hx Abnormal Pap Smear: No (02/20/2016 15:21:Gia Calderon RN) Other Medical Diseases: No (02/20/2016 15:21:Gia Calderon RN) Med Hx Significant Family Hx: No (02/20/2016 15:21:Gia Calderon RN) Details of Med/Surg Hx: Pt taking Glyburide (02/20/2016 15:21:Brenda Bronson RN) INFECTIOUS HISTORY Inf Hx Gonorrhea: No (02/20/2016 15:21:Gia Calderon RN) Inf Hx Chlamydia: No (02/20/2016 15:21:Gia Calderon RN) Inf Hx Syphilis: No (02/20/2016 15:21:Gia Calderon RN) Inf Hx HIV/AIDS: No (02/20/2016 15:21:Gia Calderon RN) Inf Hx Human Papilloma Virus: No (02/20/2016 15:21:Gia Calderon RN) Inf Hx Pt/Partner Genital Herpes: No (02/20/2016 15:21:Gia Calderon RN) Inf Hx Tuberculosis/Exposure: No (02/20/2016 15:21:Gia Calderon RN) Inf Hx Hepatitis B,C: No (02/20/2016 15:21:Gia Calderon RN) Inf Hx Rash or Viral Illness: No (02/20/2016 15:21:Gia Calderon RN) GENETIC HISTORY Gen Hx Age >=35 at VAHID: No (02/20/2016 15:21:Gia Calderon RN) Gen Hx Thalassemia: No (02/20/2016 15:21:Gia Calderon RN) Gen Hx Congenital Heart Defect: No (02/20/2016 15:21:Gia Calderon RN) Gen Hx Neural Tube Defect: No (02/20/2016 15:21:Gia Calderon RN) Gen Hx Down's Syndrome: No (02/20/2016 15:21:Gia Calderon RN) Gen Hx Leif-Sachs: No (02/20/2016 15:21:Gia Calderon RN) Gen Hx Keesha: No (02/20/2016 15:21:Gia Calderon RN) Gen Hx Familial Dysautonomia: No (02/20/2016 15:21:Gia Calderon RN) Gen Hx Sickle Cell Disease/Trait: No (02/20/2016 15:21:Gia Calderon RN) Gen Hx Hemophilia/Blood Disorder: No (02/20/2016 15:21:Gia Calderon RN) Gen Hx Muscular Dystrophy: No (02/20/2016 15:21:Gia Calderon RN) Gen Hx Cystic Fibrosis: No (02/20/2016 15:21:Gia Calderon RN) Gen Hx Huntingtons Chorea: No (02/20/2016 15:21:Gia Calderon RN) Gen Hx Mental Retardation/Autism: No (02/20/2016 15:21:Gia Calderon RN) Gen Hx Tested for Fragile X: No (02/20/2016 15:21:Gia Calderon RN) Gen Hx Other Inher/Chromosomal: No (02/20/2016 15:21:Gia Calderon RN) Gen Hx Maternal Metabolic DO: No (02/20/2016 15:21:Gia Calderon RN) Gen Hx Pt Father or FOB Defect: No (02/20/2016 15:21:Gia Calderon RN) Gen Hx Other Genetic History: No (02/20/2016 15:21:Gia Calderon RN) Gen Hx Drugs/Meds since LMP: No (02/20/2016 15:21:Gia Calderon RN)
--- NOTE | 2016-03-26 06:14 | L&D Current Admission ---
Current Admit Datetime Report Generated by CPN: 03/26/2016 06:00 ADMISSION INFORMATION Current Admit Date/Time: 03/21/2016 06:24 (03/21/2016 05:21:Brenda Bronson RN) Reason for Admission: Onset of Labor; Rupture of Membranes (03/21/2016 05:21:Brenda Bronson RN) Chief Complaint: Contractions (03/21/2016 05:21:Gia Calderon RN) EGA per Dates: 36.1 (03/21/2016 05:21:QS system process) Method of Arrival: Wheelchair (03/21/2016 05:21:Brenda Bronson RN) Admitted From: Home (03/21/2016 05:21:Brenda Bronson RN) Reason for Induction: Not Applicable (03/21/2016 05:21:Brenda Bronson RN) Records Available: Yes (03/21/2016 05:21:Brenda Bronson RN) General Admission Information: Reviewed; Updated; Confirmed (03/21/2016 05:21:Brenda Bronson RN) General Admission Reviewed By: Adrien Bronson RN (03/21/2016 05:21:Brenda Bronson RN) BELONGINGS/ADVANCED DIRECTIVES Valuables/Personal Effects: Cell Phone (03/21/2016 05:21:Brenda Bronson RN) Other Belongings: See belongings sheet (03/21/2016 05:21:Brenda Bronson RN) Disposition of Belongings: Kept with Patient (03/21/2016 05:21:Brenda Bronson RN) Advance Direct for Healthcare: No, and Wants No Information (03/21/2016 05:21:Brenda Bronson RN) Durable Power of Switchboard Manager: No (03/21/2016 05:21:Brenda Bronson RN) Living Will: No (03/21/2016 05:21:Brenda Bronson RN) Organ Donor: No (03/21/2016 05:21:Brenda Bronson RN) Pt Rights Information Given: Yes (03/21/2016 05:21:Brenda Bronson RN) Pt Understands Pt Rights: Yes (03/21/2016 05:21:Brenda Bronson RN) LEARNING ASSESSMENT Knowledge Level: Understands L_D Process; Understands Care Activities; Had Pre-Hospital Education; Understands Diagnosis (03/21/2016 05:21:Brenda Bronson RN) Barriers to Learning: Communication Barrier (03/21/2016 05:21:Brenda Bronson RN) Learning Readiness: Motivated (03/21/2016 05:21:Brenda Bronson RN) Learns Best By: 1 to 1 Instruction; Demonstration (03/21/2016 05:21:Brenda Bronson RN) Learning Needs: Labor and Delivery Process; Pain Management; Symptoms to Report; Treatment Plan; Medication; Diagnosis; Nutrition; Equipment; Infant Care; Community Resources (03/21/2016 05:21:Brenda Bronson RN) DOMESTIC VIOLANCE SCREENING Dom Viol Threatened/Hurt: No (03/21/2016 05:21:Brenda Bronson RN) Hx of Abuse/Neglect past 2yrs: No (03/21/2016 05:21:Brenda Bronson RN) Feel Unsafe Going Home: No (03/21/2016 05:21:Brenda Bronson RN) Addt'l Observ Indicating Abuse: No (03/21/2016 05:21:Brenda Bronson RN) Reason Unable to Complete Screen: N/A, Screen Completed (03/21/2016 05:21:Brenda Bronson RN) Considered Personal Harm/Suicide: No (03/21/2016 05:21:Brenda Bronson RN) NUTRITIONAL/FUNCTIONAL SCREENING Problem with Appetite >5 Days: No (03/21/2016 05:21:Brenda Bronson RN) Chew/Swallow Difficulties: No (03/21/2016 05:21:Brenda Bronson RN) Inappropriate Wt Gain/Loss: No (03/21/2016 05:21:Brenda Bronson RN) Presence Skin Breakdown/Ulcer: No (03/21/2016 05:21:Brenda Bronson RN) Special Diet: No (03/21/2016 05:21:Brenda Bronson RN) Pt Requests Pressure Control Supervisor Visit: No (03/21/2016 05:21:Brenda rBonson RN) Hx of Any of the Following?: N/A (03/21/2016 05:21:Brenda Bronson RN) New Diagnosis of: Gest Diabetes (03/21/2016 05:21:Brenda Bronson RN) Nutrition Comments: Pt on Glyburide (03/21/2016 05:21:Brenda Bronson RN) Requires Assist w/Ambulation: No (03/21/2016 05:21:Brenda Bronson RN) Uses Assist Device to Ambulate: No (03/21/2016 05:21:Brenda Bronson RN) Pt Requires Help w/ADL's: No (03/21/2016 05:21:Brenda Bronson RN)
--- NOTE | 2016-03-27 06:14 | L&D General Admission ---
General Admit Datetime Report Generated by CPN: 03/27/2016 06:00 INFORMATION Patient Age: 25 (02/20/2016 14:04:QS system process) EDC: 04/17/2016 00:00 (02/20/2016 15:21:Neeru Grajeda RN) : 3 (02/20/2016 15:21:Gia Calderon RN) Para: 0 (02/20/2016 15:17:Zayra Jain RN) Term: 0 (02/20/2016 15:21:Zayra Jain RN) : 0 (02/20/2016 15:21:Zayra Jain RN) Spontaneous Abortions: 2 (02/20/2016 15:21:Zayra Jain RN) Induced Abortions: 0 (02/20/2016 15:21:Zayra Jain RN) Livin (02/20/2016 15:21:Zayra Jain RN) Cesareans: 0 (02/20/2016 15:21:Zayra Jain RN) VBACs: 0 (02/20/2016 15:21:Zayra Jain RN) Ectopic: 0 (02/20/2016 15:21:Zayra Jain RN) Multiple Births: 0 (02/20/2016 15:21:Zayra Jain RN) Baby, Number in Womb: 1 (02/20/2016 15:17:Neeru Grajeda RN) CARE Primary Fisher Pot: [facility] Department (02/20/2016 15:21:Taylor Cee RN) Adequate Care: Yes (02/20/2016 15:21:Gia Calderon RN) Height (in): 61 (03/23/2016 10:15:QS system process) ALLERGIES Medication Allergy: No (02/20/2016 15:21:Gia Calderon RN) Medication Allergies: No Known Allergies (03/21/2016) (03/21/2016 05:01:QS system process) Latex Allergy: No Latex Allergies (02/20/2016 15:21:Gia Calderon, RN) Food Allergies: none (02/20/2016 15:21:Gia Calderon, RN) Environmental Allergies: none (02/20/2016 15:21:Gia Calderon, RN) COMMUNICATION Primary Language: Kyrgyz (02/20/2016 15:21:Gia Calderon, RN) Communication Barrier(s): Language barrier (02/20/2016 15:21:Gia Calderon, RN) DEMOGRAPHICS Address: [address] [place] [id number] (02/20/2016 14:04:QS system process) Zipcode: [id number] (02/20/2016 14:04:QS system process) Home (02/20/2016 14:04:QS system process) Work (03/21/2016 04:38:QS system process) SSN: [id number] (02/20/2016 14:04:QS system process) Next of Kin Name: ESTHER GUTIERREZ (02/20/2016 14:04:QS system process) Next of Kin (02/20/2016 14:04:QS system process) Next of Kin Relationship: SPO (02/20/2016 14:04:QS system process) Date of : 1990 (02/20/2016 14:04:QS system process) Marital Status: (02/20/2016 14:04:QS system process) Sex: Female (02/20/2016 14:04:QS system process) Race: Other (02/20/2016 14:04:QS system process) Ethnicity: or (02/20/2016 14:04:QS system process) Yazdanism: Other (02/20/2016 14:04:QS system process) FOB Involved: Yes (02/20/2016 15:21:Gia Calderon RN) Father of Baby Name: Esther Ashtonmasonkhari (02/20/2016 15:21:Gia Calderon RN) DRUG AND ALCOHOL USE Alcohol: No (02/20/2016 15:21:Gia Calderon RN) Cigarettes: Never Smoker. [id number] (02/20/2016 15:21:Gia Calderon RN) Marijuana: No (02/20/2016 15:21:Gia Calderon RN) Cocaine: No (02/20/2016 15:21:Gia Calderon RN) Other Illicit Drugs: No (02/20/2016 15:21:Gia Calderon RN) VACCINE HISTORY Influenza Vaccine: Uncertain (02/20/2016 15:21:Gia Calderon RN) Pneumococcal Vaccine: No (02/20/2016 15:21:Gia Calderon RN) Tetanus Vaccine: Uncertain (02/20/2016 15:21:Gia Calderon RN) Tdap Vaccine: Uncertain (02/20/2016 15:21:Gia Calderon RN) Hepatitis B Vaccine: Uncertain (02/20/2016 15:21:Gia Calderon RN) Rescue Worker: Health Department (02/20/2016 15:21:Gia Calderon RN) Feeding Preference: Both (02/20/2016 15:21:Gia Calderon RN) Benefit of Breast Feed Discussed: Yes (02/20/2016 15:21:Brenda Bronson RN) Circumcision: N/A (02/20/2016 15:21:Gia Calderon RN) Classes Attended: No (02/20/2016 15:21:Gia Calderon RN) Tubal Ligation: No (02/20/2016 15:21:Gia Calderon RN) Tubal Authorization Signed: N/A (02/20/2016 15:21:Gia Calderon RN) Consent: N/A (02/20/2016 15:21:Gia Calderon RN) Consent Signed: N/A (02/20/2016 15:21:Gia Calderon RN) Other Pain Management Plans: unsure (02/20/2016 15:21:Gia Calderon RN) Plans for Labor and Delivery: None (02/20/2016 15:21:Gia Calderon RN) Support Person: Esther (02/20/2016 15:21:Gia aClderon RN) Support Person Relationship: (02/20/2016 15:21:Gia Calderon RN) Cultural/Spritual Practice: No (02/20/2016 15:21:Gia Calderon RN) Spir/Cult Dietary Needs: No (02/20/2016 15:21:Gia Calderon RN) LIVING SITUATION/DISCHARGE PLAN Living Arrangements: House (02/20/2016 15:21:Gia Calderon RN) Adequate Access to:: Electric; Heat; Refrigeration; Plumbing/Running water; Phone; Transportation (02/20/2016 15:21:Gia Calderon RN) WIC Program: Yes (02/20/2016 15:21:Gia Calderon RN) Discharge Animal Trainer Person: Esther (02/20/2016 15:21:Gia Calderon RN) Person to Help after Discharge: Esther (02/20/2016 15:21:Gia Calderon RN) Currently Using Commun Resources: Yes (02/20/2016 15:21:Gia Calderon RN) Specify Current Resource Used: WIC (02/20/2016 15:21:Gia Calderon RN) Outside Agency/Screening Nurse: No (02/20/2016 15:21:Gia Calderon RN) Car Seat for Discharge: No (02/20/2016 15:21:Gia Calderon RN) Adoption Requested: No (02/20/2016 15:21:Gia Calderon RN) Pt Contact w/ Post : N/A (02/20/2016 15:21:Gia Calderon RN) LABS Blood Type: O Positive (02/20/2016 15:21:Zayra Jain RN) Antibody Screen: Negative (02/20/2016 15:21:Zayra Jain RN) Rho(G) this : Not Applicable (02/20/2016 15:21:Zayra Jain RN) Hemoglobin: 11.0 L (03/22/2016 06:46:QS system process) Hematocrit: 32.9 L (03/22/2016 06:46:QS system process) MCV: 86 (03/22/2016 06:46:QS system process) Group Beta Strep: Unknown (02/20/2016 15:21:Gia Calderon RN) Gonorrhea: Negative (02/20/2016 15:21:Brenda Bronson RN) Chlamydia: Negative (02/20/2016 15:21:Brenda Bronson RN) RPR/VDRL: Nonreactive (02/20/2016 15:21:Zayra Jain RN) HIV Results: Negative (02/20/2016 15:21:Zayra Jain RN) Hepatitis B: Negative (02/20/2016 15:21:Zayra Jain RN) Rubella: Immune (02/20/2016 15:21:Zayra Jain RN) Varicella: Non Susceptible (02/20/2016 15:21:Zayra Jain RN) OB/PREVIOUS HISTORY Current Procedures: Ultrasound; NST (02/20/2016 15:21:Gia Calderon RN) History of Previous : No (02/20/2016 15:21:Gia Calderon RN) History of Gestational Diabetes: Yes (02/20/2016 15:21:Gia Calderon RN) History of PIH: No (02/20/2016 15:21:Gia Calderon RN) History of Incompetent Cervix: No (02/20/2016 15:21:Gia Calderon RN) History of Placenta Previa/Abrup: No (02/20/2016 15:21:Gia Calderon RN) History of Macrosomia: No (02/20/2016 15:21:Gia Calderon RN) History of IUGR: No (02/20/2016 15:21:Gia Calderon RN) History of Hemorrhage: No (02/20/2016 15:21:Gia Calderon RN) History of Loss/Stillborn: No (02/20/2016 15:21:Gia Calderon RN) History of : No (02/20/2016 15:21:Gia Calderon RN) History of D (Rh) Sensitization: No (02/20/2016 15:21:Gia Calderon RN) History Recurrent Loss/Stillborn: No (02/20/2016 15:21:Gia Calderon RN) History Depression/PP Depression: No (02/20/2016 15:21:Gia Calderon RN) History of Uterine Anomaly/RITESH: No (02/20/2016 15:21:Gia Calderon RN) History of Infertility: No (02/20/2016 15:21:Gia Calderon RN) History of ART Treatment: No (02/20/2016 15:21:Gia Calderon RN) History of RITESH: No (02/20/2016 15:21:Gia Calderon RN) Comments Obstetrical History: G1: 2010 G2: 2014 G3: Current (02/20/2016 15:21:Gia Calderon RN) MEDICAL HISTORY Med Hx Diabetes: No (02/20/2016 15:21:Gia Calderon RN) Diabetes Type: Gestational Diabetes (02/20/2016 15:21:Brenda Bronson RN) Med Hx Hypertension: No (02/20/2016 15:21:Gia Calderon RN) Med Hx Heart Disease: No (02/20/2016 15:21:Gia Calderon RN) Med Hx Autoimmune Disorder: No (02/20/2016 15:21:Gia Calderon RN) Med Hx Kidney Disease/UTI: No (02/20/2016 15:21:Gia Calderon RN) Med Hx Neurologic/Epilepsy: No (02/20/2016 15:21:Gia Calderon RN) Med Hx Psychiatric Disorders: No (02/20/2016 15:21:Gia Calderon RN) Med Hx Hepatitis/Liver Disease: No (02/20/2016 15:21:Gia Calderon RN) Med Hx Varicosities/Phlebitis: No (02/20/2016 15:21:Gia Calderon RN) Med Hx Thyroid Dysfunction: No (02/20/2016 15:21:Gia Calderon RN) Med Hx Trauma/Violence: No (02/20/2016 15:21:Gia Calderon RN) Med Hx Blood Transfusion: No (02/20/2016 15:21:Gia Calderon RN) Med Hx Pulmonary (Asthma,TB): No (02/20/2016 15:21:Gia Calderon RN) Med Hx Breast: No (02/20/2016 15:21:Gia Calderon RN) Med Hx PIPELINES SUPERINTENDENT Surgery: No (02/20/2016 15:21:Gia Calderon RN) Med Hx Hospitalization/Surgery: No (02/20/2016 15:21:Gia Calderon RN) Med Hx Anesthetic Complications: No (02/20/2016 15:21:Gia Calderon RN) Med Hx Abnormal Pap Smear: No (02/20/2016 15:21:Gia Calderon RN) Other Medical Diseases: No (02/20/2016 15:21:Gia Calderon RN) Med Hx Significant Family Hx: No (02/20/2016 15:21:Gia Calderon RN) Details of Med/Surg Hx: Pt taking Glyburide (02/20/2016 15:21:Brenda Bronson RN) INFECTIOUS HISTORY Inf Hx Gonorrhea: No (02/20/2016 15:21:Gia Calderon RN) Inf Hx Chlamydia: No (02/20/2016 15:21:Gia Calderon RN) Inf Hx Syphilis: No (02/20/2016 15:21:Gia Calderon RN) Inf Hx HIV/AIDS: No (02/20/2016 15:21:Gia Calderon RN) Inf Hx Human Papilloma Virus: No (02/20/2016 15:21:Gia Calderon RN) Inf Hx Pt/Partner Genital Herpes: No (02/20/2016 15:21:Gia Calderon RN) Inf Hx Tuberculosis/Exposure: No (02/20/2016 15:21:Gia Calderon RN) Inf Hx Hepatitis B,C: No (02/20/2016 15:21:Gia Calderon RN) Inf Hx Rash or Viral Illness: No (02/20/2016 15:21:Gia Calderon RN) GENETIC HISTORY Gen Hx Age >=35 at VAHID: No (02/20/2016 15:21:Gia Calderon RN) Gen Hx Thalassemia: No (02/20/2016 15:21:Gia Calderon RN) Gen Hx Congenital Heart Defect: No (02/20/2016 15:21:Gia Calderon RN) Gen Hx Neural Tube Defect: No (02/20/2016 15:21:Gia Calderon RN) Gen Hx Down's Syndrome: No (02/20/2016 15:21:Gia Calderon RN) Gen Hx Leif-Sachs: No (02/20/2016 15:21:Gia Calderon RN) Gen Hx Keesha: No (02/20/2016 15:21:Gia Calderon RN) Gen Hx Familial Dysautonomia: No (02/20/2016 15:21:Gia Calderon RN) Gen Hx Sickle Cell Disease/Trait: No (02/20/2016 15:21:Gia Calderon RN) Gen Hx Hemophilia/Blood Disorder: No (02/20/2016 15:21:Gia Calderon RN) Gen Hx Muscular Dystrophy: No (02/20/2016 15:21:Gia Calderon RN) Gen Hx Cystic Fibrosis: No (02/20/2016 15:21:Gia Calderon RN) Gen Hx Huntingtons Chorea: No (02/20/2016 15:21:Gia Calderon RN) Gen Hx Mental Retardation/Autism: No (02/20/2016 15:21:Gia Calderon RN) Gen Hx Tested for Fragile X: No (02/20/2016 15:21:Gia Calderon RN) Gen Hx Other Inher/Chromosomal: No (02/20/2016 15:21:Gia Calderon RN) Gen Hx Maternal Metabolic DO: No (02/20/2016 15:21:Gia Calderon RN) Gen Hx Pt Father or FOB Defect: No (02/20/2016 15:21:Gia Calderon RN) Gen Hx Other Genetic History: No (02/20/2016 15:21:Gia Calderon RN) Gen Hx Drugs/Meds since LMP: No (02/20/2016 15:21:Gia Calderon RN)
--- NOTE | 2016-03-28 06:15 | L&D General Admission ---
General Admit Datetime Report Generated by CPN: 03/28/2016 06:00 INFORMATION Patient Age: 25 (02/20/2016 14:04:QS system process) EDC: 04/17/2016 00:00 (02/20/2016 15:21:Neeru Grajeda RN) : 3 (02/20/2016 15:21:Gia Calderon RN) Para: 0 (02/20/2016 15:17:Zayra Jain RN) Term: 0 (02/20/2016 15:21:Zayra Jain RN) : 0 (02/20/2016 15:21:Zayra Jain RN) Spontaneous Abortions: 2 (02/20/2016 15:21:Zayra Jain RN) Induced Abortions: 0 (02/20/2016 15:21:Zayra Jain RN) Livin (02/20/2016 15:21:Zayra Jain RN) Cesareans: 0 (02/20/2016 15:21:Zayra Jain RN) VBACs: 0 (02/20/2016 15:21:Zayra Jain RN) Ectopic: 0 (02/20/2016 15:21:Zayra Jain RN) Multiple Births: 0 (02/20/2016 15:21:Zayra Jain RN) Baby, Number in Womb: 1 (02/20/2016 15:17:Neeru Grajeda RN) CARE Primary Entry Level Manufacturing Engineer: [facility] Department (02/20/2016 15:21:Taylor Cee RN) Adequate Care: Yes (02/20/2016 15:21:Gia Calderon RN) Height (in): 61 (03/23/2016 10:15:QS system process) ALLERGIES Medication Allergy: No (02/20/2016 15:21:Gia Calderon RN) Medication Allergies: No Known Allergies (03/21/2016) (03/21/2016 05:01:QS system process) Latex Allergy: No Latex Allergies (02/20/2016 15:21:Gia Calderon, RN) Food Allergies: none (02/20/2016 15:21:Gia Calderon, RN) Environmental Allergies: none (02/20/2016 15:21:Gia Calderon, RN) COMMUNICATION Primary Language: Croatian (02/20/2016 15:21:Gia Calderon, RN) Communication Barrier(s): Language barrier (02/20/2016 15:21:Gia Calderon, RN) DEMOGRAPHICS Address: [address] [place] [id number] (02/20/2016 14:04:QS system process) Zipcode: [id number] (02/20/2016 14:04:QS system process) Home (02/20/2016 14:04:QS system process) Work (03/21/2016 04:38:QS system process) SSN: [id number] (02/20/2016 14:04:QS system process) Next of Kin Name: ESTHER GUTIERREZ (02/20/2016 14:04:QS system process) Next of Kin (02/20/2016 14:04:QS system process) Next of Kin Relationship: SPO (02/20/2016 14:04:QS system process) Date of : 1990 (02/20/2016 14:04:QS system process) Marital Status: (02/20/2016 14:04:QS system process) Sex: Female (02/20/2016 14:04:QS system process) Race: Other (02/20/2016 14:04:QS system process) Ethnicity: or (02/20/2016 14:04:QS system process) Episcopal: Other (02/20/2016 14:04:QS system process) FOB Involved: Yes (02/20/2016 15:21:Gia Calderon RN) Father of Baby Name: Esther Ashtonmasonkhari (02/20/2016 15:21:Gia Calderon RN) DRUG AND ALCOHOL USE Alcohol: No (02/20/2016 15:21:Gia Calderon RN) Cigarettes: Never Smoker. [id number] (02/20/2016 15:21:Gia Calderon RN) Marijuana: No (02/20/2016 15:21:Gia Calderon RN) Cocaine: No (02/20/2016 15:21:Gia Calderon RN) Other Illicit Drugs: No (02/20/2016 15:21:Gia Calderon RN) VACCINE HISTORY Influenza Vaccine: Uncertain (02/20/2016 15:21:Gia Calderon RN) Pneumococcal Vaccine: No (02/20/2016 15:21:Gia Calderon RN) Tetanus Vaccine: Uncertain (02/20/2016 15:21:Gia Calderon RN) Tdap Vaccine: Uncertain (02/20/2016 15:21:Gia Calderon RN) Hepatitis B Vaccine: Uncertain (02/20/2016 15:21:Gia Calderon RN) Cigarette Tester: [facility] Department (02/20/2016 15:21:Gia Calderon RN) Feeding Preference: Both (02/20/2016 15:21:Gia Calderon RN) Benefit of Breast Feed Discussed: Yes (02/20/2016 15:21:Brenda Bronson RN) Circumcision: N/A (02/20/2016 15:21:Gia Calderon RN) Classes Attended: No (02/20/2016 15:21:Gia Calderon RN) Tubal Ligation: No (02/20/2016 15:21:Gia Calderon RN) Tubal Authorization Signed: N/A (02/20/2016 15:21:Gia Calderon RN) Consent: N/A (02/20/2016 15:21:Gia Calderon RN) Consent Signed: N/A (02/20/2016 15:21:Gia Calderon RN) Other Pain Management Plans: unsure (02/20/2016 15:21:Gia Calderon RN) Plans for Labor and Delivery: None (02/20/2016 15:21:Gia Calderon RN) Support Person: Esther (02/20/2016 15:21:Gia Calderon RN) Support Person Relationship: (02/20/2016 15:21:Gia Calderon RN) Cultural/Spritual Practice: No (02/20/2016 15:21:Gia Calderon RN) Spir/Cult Dietary Needs: No (02/20/2016 15:21:Gia Calderon RN) LIVING SITUATION/DISCHARGE PLAN Living Arrangements: House (02/20/2016 15:21:Gia Calderon RN) Adequate Access to:: Electric; Heat; Refrigeration; Plumbing/Running water; Phone; Transportation (02/20/2016 15:21:Gia Calderon RN) WIC Program: Yes (02/20/2016 15:21:Gia Calderon RN) Discharge Gas Leak Inspector Person: Esther (02/20/2016 15:21:Gia Calderon RN) Person to Help after Discharge: Esther (02/20/2016 15:21:Gia Calderon RN) Currently Using Commun Resources: Yes (02/20/2016 15:21:Gia Calderon RN) Specify Current Resource Used: WIC (02/20/2016 15:21:Gia Calderon RN) Outside Agency/Wire Machine Operator: No (02/20/2016 15:21:Gia Calderon RN) Car Seat for Discharge: No (02/20/2016 15:21:Gia Calderon RN) Adoption Requested: No (02/20/2016 15:21:Gia Calderon RN) Pt Contact w/ Post : N/A (02/20/2016 15:21:Gia Calderon RN) LABS Blood Type: O Positive (02/20/2016 15:21:Zayra Jain RN) Antibody Screen: Negative (02/20/2016 15:21:Zayra Jain RN) Rho(G) this : Not Applicable (02/20/2016 15:21:Zayra Jain RN) Hemoglobin: 11.0 L (03/22/2016 06:46:QS system process) Hematocrit: 32.9 L (03/22/2016 06:46:QS system process) MCV: 86 (03/22/2016 06:46:QS system process) Group Beta Strep: Unknown (02/20/2016 15:21:Gia Calderon RN) Gonorrhea: Negative (02/20/2016 15:21:Brenda Bronson RN) Chlamydia: Negative (02/20/2016 15:21:Brenda Bronson RN) RPR/VDRL: Nonreactive (02/20/2016 15:21:Zayra Jain RN) HIV Results: Negative (02/20/2016 15:21:Zayra Jain RN) Hepatitis B: Negative (02/20/2016 15:21:Zayra Jain RN) Rubella: Immune (02/20/2016 15:21:Zayra Jain RN) Varicella: Non Susceptible (02/20/2016 15:21:Zayra Jain RN) OB/PREVIOUS HISTORY Current Procedures: Ultrasound; NST (02/20/2016 15:21:Gia Calderon RN) History of Previous : No (02/20/2016 15:21:Gia aClderon RN) History of Gestational Diabetes: Yes (02/20/2016 15:21:Gia Calderon RN) History of PIH: No (02/20/2016 15:21:Gia Calderon RN) History of Incompetent Cervix: No (02/20/2016 15:21:Gia Calderon RN) History of Placenta Previa/Abrup: No (02/20/2016 15:21:Gia Calderon RN) History of Macrosomia: No (02/20/2016 15:21:Gia Calderon RN) History of IUGR: No (02/20/2016 15:21:Gia Calderon RN) History of Hemorrhage: No (02/20/2016 15:21:Gia Calderon RN) History of Loss/Stillborn: No (02/20/2016 15:21:Gia Calderon RN) History of : No (02/20/2016 15:21:Gia Calderon RN) History of D (Rh) Sensitization: No (02/20/2016 15:21:Gia Calderon RN) History Recurrent Loss/Stillborn: No (02/20/2016 15:21:Gia Calderon RN) History Depression/PP Depression: No (02/20/2016 15:21:Gia Calderon RN) History of Uterine Anomaly/RITESH: No (02/20/2016 15:21:Gia Calderon RN) History of Infertility: No (02/20/2016 15:21:Gia Calderon RN) History of ART Treatment: No (02/20/2016 15:21:Gia Calderon RN) History of RITESH: No (02/20/2016 15:21:Gia Calderon RN) Comments Obstetrical History: G1: 2010 G2: 2014 G3: Current (02/20/2016 15:21:Gia Calderon RN) MEDICAL HISTORY Med Hx Diabetes: No (02/20/2016 15:21:Gia Calderon RN) Diabetes Type: Gestational Diabetes (02/20/2016 15:21:Brenda Bronson RN) Med Hx Hypertension: No (02/20/2016 15:21:Gia Calderon RN) Med Hx Heart Disease: No (02/20/2016 15:21:Gia Calderon RN) Med Hx Autoimmune Disorder: No (02/20/2016 15:21:Gia Calderon RN) Med Hx Kidney Disease/UTI: No (02/20/2016 15:21:Gia Calderon RN) Med Hx Neurologic/Epilepsy: No (02/20/2016 15:21:Gia Calderon RN) Med Hx Psychiatric Disorders: No (02/20/2016 15:21:Gia Calderon RN) Med Hx Hepatitis/Liver Disease: No (02/20/2016 15:21:Gia Calderon RN) Med Hx Varicosities/Phlebitis: No (02/20/2016 15:21:Gia Calderon RN) Med Hx Thyroid Dysfunction: No (02/20/2016 15:21:Gia Calderon RN) Med Hx Trauma/Violence: No (02/20/2016 15:21:Gia Calderon RN) Med Hx Blood Transfusion: No (02/20/2016 15:21:Gia Calderon RN) Med Hx Pulmonary (Asthma,TB): No (02/20/2016 15:21:Gia Calderon RN) Med Hx Breast: No (02/20/2016 15:21:Gia Calderon RN) Med Hx BARREL WASHER Surgery: No (02/20/2016 15:21:Gia Calderon RN) Med Hx Hospitalization/Surgery: No (02/20/2016 15:21:Gia Calderon RN) Med Hx Anesthetic Complications: No (02/20/2016 15:21:Gia Calderon RN) Med Hx Abnormal Pap Smear: No (02/20/2016 15:21:Gia Calderon RN) Other Medical Diseases: No (02/20/2016 15:21:Gia Calderon RN) Med Hx Significant Family Hx: No (02/20/2016 15:21:Gia Calderon RN) Details of Med/Surg Hx: Pt taking Glyburide (02/20/2016 15:21:Brenda Bronson RN) INFECTIOUS HISTORY Inf Hx Gonorrhea: No (02/20/2016 15:21:Gia Calderon RN) Inf Hx Chlamydia: No (02/20/2016 15:21:Gia Calderon RN) Inf Hx Syphilis: No (02/20/2016 15:21:Gia Calderon RN) Inf Hx HIV/AIDS: No (02/20/2016 15:21:Gia Calderon RN) Inf Hx Human Papilloma Virus: No (02/20/2016 15:21:Gia Calderon RN) Inf Hx Pt/Partner Genital Herpes: No (02/20/2016 15:21:Gia Calderon RN) Inf Hx Tuberculosis/Exposure: No (02/20/2016 15:21:Gia Calderon RN) Inf Hx Hepatitis B,C: No (02/20/2016 15:21:Gia Calderon RN) Inf Hx Rash or Viral Illness: No (02/20/2016 15:21:Gia Calderon RN) GENETIC HISTORY Gen Hx Age >=35 at VAHID: No (02/20/2016 15:21:Gia Calderon RN) Gen Hx Thalassemia: No (02/20/2016 15:21:Gia Calderon RN) Gen Hx Congenital Heart Defect: No (02/20/2016 15:21:Gia Calderon RN) Gen Hx Neural Tube Defect: No (02/20/2016 15:21:Gia Calderon RN) Gen Hx Down's Syndrome: No (02/20/2016 15:21:Gia Calderon RN) Gen Hx Leif-Sachs: No (02/20/2016 15:21:Gia Calderon RN) Gen Hx Keesha: No (02/20/2016 15:21:Gia Calderon RN) Gen Hx Familial Dysautonomia: No (02/20/2016 15:21:Gia Calderon RN) Gen Hx Sickle Cell Disease/Trait: No (02/20/2016 15:21:Gia Calderon RN) Gen Hx Hemophilia/Blood Disorder: No (02/20/2016 15:21:Gia Calderon RN) Gen Hx Muscular Dystrophy: No (02/20/2016 15:21:Gia Calderon RN) Gen Hx Cystic Fibrosis: No (02/20/2016 15:21:Gia Calderon RN) Gen Hx Huntingtons Chorea: No (02/20/2016 15:21:Gia Calderon RN) Gen Hx Mental Retardation/Autism: No (02/20/2016 15:21:Gia Calderon RN) Gen Hx Tested for Fragile X: No (02/20/2016 15:21:Gia Calderon RN) Gen Hx Other Inher/Chromosomal: No (02/20/2016 15:21:Gia Calderon RN) Gen Hx Maternal Metabolic DO: No (02/20/2016 15:21:Gia Calderon RN) Gen Hx Pt Father or FOB Defect: No (02/20/2016 15:21:Gia Calderon RN) Gen Hx Other Genetic History: No (02/20/2016 15:21:Gia Calderon RN) Gen Hx Drugs/Meds since LMP: No (02/20/2016 15:21:Gia Calderon RN)
== END 2016-03-23 12:58 | disposition home or self-care (01) | DRG 775 ==
LOC: LC 04:38 → LR 06:42 → 2S 14:35
PROVIDERS: ADMIT Obstetrics & Gynecology; ATTEND Student in an Organized Health Care Education/Training Program
PROC: 10E0XZZ Delivery of Products of Conception, External Approach (ICD-10-PCS; principal; 2016-03-21)
PROC: 4A1HXCZ Monitoring of Products of Conception, Cardiac Rate, External Approach (ICD-10-PCS; 2016-03-21)
DX: O60.14X0 Preterm labor third trimester with preterm delivery third trimester, not applicable or unspecified (principal); O24.425 Gestational diabetes mellitus in childbirth, controlled by oral hypoglycemic drugs; O76 Abnormality in fetal heart rate and rhythm complicating labor and delivery; O71.82 Other specified trauma to perineum and vulva; Z3A.36 36 weeks gestation of pregnancy; Z37.0 Single live birth
CPT/HCPCS: 36415; 80307; 81001; 85025; 85027; 86592; 86850; 86900; 86901; 88307; J2370; J2540; J2590; J3010; J3490

== ENCOUNTER 2018-02-10 03:16 | Emergency (ER) | payer SELFPAY ==
[2018-02-10] MEDS ORDERED: METOCLOPRAMIDE HCL INJ/PF 10 MG/2 ML SDV IV ONE (03:42)
[2018-02-10] MEDS ORDERED: NORMAL SALINE 1000 ML 1,000 ML IV ONE (03:42)
--- NOTE | 2018-02-10 03:52 | ER Document Report ---
ED General - General Chief Complaint: Dizziness Stated Complaint: HEAD ACHE,LIGHT HEADEDNESS Time Seen by Provider: 02/10/18 03:30 Notes: Patient is a 27-year-old female that comes to the emergency department for chief complaint of nausea, vomiting, and lightheadedness. She states that she started feeling nauseated yesterday and then vomited all day yesterday, she has vomited multiple times today as well. She denies diarrhea, fever, she denies any particular areas of abdominal pain, she denies abdominal pain, she denies flank pain, dysuria, vaginal discharge or bleeding. She states she feels fine currently but if she stands up intermittently she will feel little bit lightheaded. She denies passing out, chest pain, shortness of breath. She denies any daily medications, denies any surgeries, denies any medical history. No obvious sick contacts. Patient is unsure if she is . Family at bedside. TRAVEL OUTSIDE OF THE [place] IN LAST 30 DAYS: No - Related Data Allergies/Adverse Reactions: No Known Allergies Allergy (Verified 03/21/16 05:01) Past Medical History - General Information source: Patient - Social History Smoking Status: Never Smoker Frequency of alcohol use: None Drug Abuse: None Lives with: Family Family History: Reviewed & Not Pertinent - Medical History Medical History: Negative Surgical Hx: Negative - Immunizations Hx Diphtheria, Pertussis, Tetanus Vaccination: Yes Review of Systems - Review of Systems Constitutional: See HPI EENT: No symptoms reported Cardiovascular: No symptoms reported Respiratory: No symptoms reported Gastrointestinal: See HPI Genitourinary: No symptoms reported Female Genitourinary: No symptoms reported Musculoskeletal: No symptoms reported Skin: No symptoms reported Hematologic/Lymphatic: No symptoms reported Neurological/Psychological: No symptoms reported Physical Exam - Vital signs Vitals: Temp Pulse Resp BP Pulse Ox 97.4 F 71 16 134/74 H 98 02/10/18 03:22 02/10/18 03:22 02/10/18 03:22 02/10/18 03:22 02/10/18 03:22 - Notes Notes: GENERAL: Alert, interacts well. No acute distress. HEAD: Normocephalic, atraumatic. EYES: Pupils equal, round, and reactive to light. Extraocular movements intact. ENT: Oral mucosa moist, tongue midline. Oropharynx unremarkable. Airway patent. Nares patent, no nasal septal hematoma, TM's intact. NECK: Full range of motion. Supple. Trachea midline. LUNGS: Clear to auscultation bilaterally, no wheezes, rales, or rhonchi. No respiratory distress. HEART: Regular rate and rhythm. No murmur ABDOMEN: Soft, non-tender. Non-distended. Bowel sounds present in all 4 quadrants. GENITOURINARY: Deferred EXTREMITIES: Moves all 4 extremities spontaneously. No edema, normal radial and dorsalis pedis pulses bilaterally. No cyanosis. BACK: no cervical, thoracic, lumbar midline tenderness. No saddle anesthesia, normal distal neurovascular exam. NEUROLOGICAL: Alert and oriented x3. Normal speech. [cranial nerves II through XII grossly intact]. PSYCH: Normal affect, normal mood. SKIN: Warm, dry, normal turgor. No rashes or lesions noted. Course - Re-evaluation Re-evalutation: Patient is actually smiling and well-appearing. She has a soft nontender abdomen. No CVA tenderness. CBC shows mild leukocytosis with elevation of neutrophils, no bandemia. CMP unremarkable, lipase unremarkable, urine shows elevated specific gravity, hCG is negative. Patient was given IV fluids and nausea medications. On reevaluation she still has no abdominal pain, she remains very well-appearing. She stood and walked in the room, she states she feels much better, she no longer has any lightheadedness. Suspect this was dehydration associated. Based on her abdominal exam which is completely benign I have very low suspicion of acute abdomen. She denies any shortness of breath, chest pain, or syncope. This is most likely viral in nature. Discussed results, treatment, recommendations, follow-up, and return precautions in detail with patient and family. They state satisfaction and agreement. - Vital Signs Vital signs: Temp Pulse Resp BP Pulse Ox 97.4 F 71 16 134/74 H 98 02/10/18 03:22 02/10/18 03:22 02/10/18 03:22 02/10/18 03:22 02/10/18 03:22 - Laboratory Result Diagrams: 02/10/18 04:10 02/10/18 04:10 Laboratory results interpreted by me: 02/10/18 02/10/18 02/10/18 04:10 04:10 04:10 WBC 14.5 H Absolute Neutrophils 9.8 H Creatinine 0.48 L Glucose 112 H Urine Urobilinogen 2.0 H Ur Leukocyte Esterase TRACE H Discharge - Discharge Clinical Impression: Dehydration, Lightheadedness Vomiting Qualifiers: Vomiting type: unspecified Vomiting Intractability: non-intractable Nausea presence: with nausea Qualified Code(s): R11.2 - Nausea with vomiting, unspecified Disposition: HOME, SELF-CARE Additional Instructions: Your evaluation and workup shows dehydration but no other concerning findings at this time. This is most viral, it should resolve with time. Take Phenergan as needed for nausea, take Pepcid to help recover from this, drink plenty of fluids, start with bland food (avoid caffeine, spicy food, NSAIDs, alcohol). Follow-up with primary care. Return if you worsen including abdominal pain, passing out, uncontrolled vomiting, fever, or any other concerning or worsening symptoms. Prescriptions: Famotidine [Pepcid 20 mg Tablet] 20 mg PO BID #20 tablet Promethazine HCl [Phenergan 25 mg Tablet] 25 mg PO Q6H PRN #20 tablet PRN Reason: Forms: Return to Work, Treatment of Relative/Child Referrals: DICK KUMAR MD [ACTIVE STAFF] - Follow up as needed
[2018-02-10 04:24] LABS: ABSOLUTE BASOPHILS # (AUTO) 0.1 10^3/uL (0.0-0.2); ABSOLUTE EOSINOPHILS # (AUTO) 0.2 10^3/uL (0.0-0.6); ABSOLUTE LYMPHOCYTES (AUTO) 3.6 10^3/uL (0.5-4.7); ABSOLUTE MONOCYTES (AUTO) 0.8 10^3/uL (0.1-1.4); ABSOLUTE NEUT (AUTO) 9.8 10^3/uL (1.7-8.2); BASOPHILS % (AUTO) 0.6 % (0-2); EOSINOPHILS % (AUTO) 1.4 % (0-6); HEMATOCRIT 36.2 % (36.0-47.0); HEMOGLOBIN 12.1 g/dL (12.0-15.5); LYMPHOCYTES % (AUTO) 24.7 % (13-45); MEAN CORPUSCULAR HEMOGLOBIN 27.7 pg (27.0-33.4); MEAN CORPUSCULAR HGB CONC 33.6 g/dL (32.0-36.0); MEAN CORPUSCULAR VOLUME 82 fl (80-97); MONOCYTES % (AUTO) 5.5 % (3-13); PLATELET COUNT 308 10^3/uL (150-450); RED BLOOD COUNT 4.39 10^6/uL (3.72-5.28); RED CELL DISTRIBUTION WIDTH 13.9 % (11.5-14.0); SEGMENTED NEUTROPHILS % (AUTO) 67.8 % (42-78); TOTAL CELLS COUNTED % (AUTO) 100 %; WHITE BLOOD COUNT 14.5 10^3/uL (4.0-10.5)
[2018-02-10 05:04] LABS: APPEARANCE,URINE SLIGHTLY-CLOUDY; BILIRUBIN,URINE NEGATIVE (NEGATIVE); COLOR,URINE YELLOW; GLUCOSE, URINE NEGATIVE (NEGATIVE); KETONES,URINE NEGATIVE (NEGATIVE); LEUKOCYTE ESTERASE,URINE TRACE (NEGATIVE); NITRITE,URINE NEGATIVE (NEGATIVE); PROTEIN,URINE NEGATIVE (NEGATIVE)
[2018-02-10 05:09] LABS: CALCIUM 9.4 mg/dL (8.4-10.2); GLUCOSE 112 mg/dL (75-110)
[2018-02-10 05:10] LABS: ALANINE AMINOTRANSFERASE 25 U/L (9-52); ALKALINE PHOSPHATASE 106 U/L (38-126); ANION GAP 13 (5-19); ASPARTATE AMINO TRANSFERASE 21 U/L (14-36); BILIRUBIN,DIRECT 0.2 mg/dL (0.0-0.4); BILIRUBIN,TOTAL 0.4 mg/dL (0.2-1.3); BLOOD UREA NITROGEN 12 mg/dL (7-20); CARBON DIOXIDE 25 mmol/L (22-30); CHLORIDE 106 mmol/L (98-107); POTASSIUM 4.2 mmol/L (3.6-5.0); SODIUM 143.7 mmol/L (137-145)
[2018-02-10 05:11] LABS: LIPASE 46.6 U/L (23-300); TOTAL PROTEIN 7.6 g/dL (6.3-8.2)
[2018-02-10] MEDS ORDERED: ONDANSETRON ODT 4 MG TAB (6 TAB/ER DISP) PO PRN (05:32)
[2018-02-10] MEDS ORDERED: FAMOTIDINE 20 MG TABLET PO ONE (05:32)
[2018-02-10 06:27] VITALS: BP 98/65
== END 2018-02-10 06:24 | disposition home or self-care (01) ==
LOC: ER 03:16
DX: E86.0 Dehydration (principal); R11.2 Nausea with vomiting, unspecified; R42 Dizziness and giddiness; R51 Headache
CPT/HCPCS: 99284; 96361; 96374; 36415; 83690; 85025; 81025; 80053; 81001; J2765; J7030

== ENCOUNTER → 2018-09-23 | Outpatient (CLI) | payer SELFPAY ==
--- NOTE | 2018-09-23 15:54 | RADIOLOGY REPORT (SQ) ---
EXAM DESCRIPTION: U/S [id number] TRNABD 1GES W/ODOP COMPLETED DATE/TIME: 09/23/2018 2:42 pm REASON FOR STUDY: Z34.81 ENCOUNTER FOR SUPRVSN OF NORMAL , FIRST TRIMESTER Z34.81 ENCOUNTE R FOR SUPRVSN OF NORMAL , FIRST TRIM COMPARISON: None. TECHNIQUE: Transvaginal static and realtime grayscale images acquired of the pelvis. Additional elijah cted spectral and color Doppler images recorded. All images stored on PACs. bHCG: Not available. CLINICAL DATES: 12 weeks 5 days. LIMITATIONS: None. FINDINGS: FETUS: Single Living intrauterine . ULTRASOUND EGA: 9 weeks 4 days. ULTRASOUND VAHID: 04/24/2019 EFW: Not applicable less than 20 weeks. CRL: 2.7 cm. FHR: 140 beats per minute. SURVEY: Too early to assess. AMNIOTIC FLUID: Adequate amount. PLACENTA: Not yet developed due to early gestation. SUBCHORIONIC BLEED: No. SIZE OF BLEED: Not applicable. UTERUS: No masses. No anomalies. CERVICAL LENGTH: 2.9 cm. Closed. RIGHT ADNEXA: Ovary not identified due to poor acoustical window. No adnexal free fluid. No adnexal masses. LEFT ADNEXA: Normal ovary with normal vascular flow. No adnexal free fluid. No adnexal masses. FREE FLUID: None. OTHER: No other significant finding. IMPRESSION: LIVING INTRAUTERINE . EGA 9 WEEKS 4 DAYS. Trimester of : First - 0 to 13 weeks. TECHNICAL DOCUMENTATION: JOB ID: [id number] [employer] - [place]- All Rights Reserved Reading location - IP/workstation name: [email or web address]
== END ==
LOC: RAD 13:43
PROVIDERS: ATTEND Midwife
DX: Z34.81 Encounter for supervision of other normal pregnancy, first trimester (principal); Z3A.12 12 weeks gestation of pregnancy
CPT/HCPCS: 76801

== ENCOUNTER → 2018-12-09 | Outpatient (CLI) | payer SELFPAY ==
--- NOTE | 2018-12-09 15:31 | RADIOLOGY REPORT (SQ) ---
EXAM DESCRIPTION: U/S OB 14+ TRNABD 1GES W/O DOP COMPLETED DATE/TIME: 12/09/2018 2:32 pm REASON FOR STUDY: ENCTR FOR SUPERVISION OF OTHER NORMAL , SECOND TRIMESTER (Z34.82) Z34.82 ENCOUNTER FOR SUPRVSN OF NORMAL , SECOND TRI COMPARISON: 09/23/2018. TECHNIQUE: Static and Dynamic grayscale imaging performed of gravid uterus using transabdominal appr oach. Additional selected color Doppler and spectral images recorded. All stored on PACS. LIMITATIONS: None. FINDINGS: FETUSES SEEN:1 EGA: 20 week 6 day. Calculated using BPD,FL,HC,AC documented on images. No discrepancy with clinical dates. VAHID: 04/22/2019. EFW: 400 grams PERCENTILE: Not available. ORESTES: Largest pocket 4.6 cm. PLACENTA: Anterior. PRESENTATION: Transverse. ANATOMY: HEART RATE: 136 beats per minute. FOUR CHAMBER HEART: Poorly visualized. THREE VESSEL CORD: Yes. CORD INSERTION: Visualized. KIDNEYS AND BLADDER: Visualized. Appear normal. STOMACH: Visualized. Appears normal. SPINE: Poorly visualized. BRAIN AND LATERAL VENTRICLES: Visualized. Appear normal. OTHER: No other significant finding. MATERNAL ADNEXA: Maternal ovaries not visualized. CERVICAL LENGTH: 5.8 cm. Closed. OTHER: No other significant finding. IMPRESSION: LIVING INTRAUTERINE . ESTIMATED GESTATIONAL AGE 20 WEEK 6 DAY. NO VISUALIZED ANOMALIES. Trimester of : Second trimester - 13 weeks 1 day to 27 weeks 6 days. TECHNICAL DOCUMENTATION: JOB ID: [id number] [employer]- All Rights Reserved Reading location - IP/workstation name: [email or web address]
== END ==
LOC: RAD 12:41
PROVIDERS: ATTEND Midwife
DX: Z34.82 Encounter for supervision of other normal pregnancy, second trimester (principal)
CPT/HCPCS: 76805

== ENCOUNTER → 2019-02-01 | Outpatient (CLI) | payer SELFPAY ==
--- NOTE | 2019-02-01 13:56 | RADIOLOGY REPORT (SQ) ---
EXAM DESCRIPTION: U/S OB 14+ TRNABD 1GES W/O DOP COMPLETED DATE/TIME: 02/01/2019 1:41 pm REASON FOR STUDY: Z34.82 ENCOUNTER FOR SUPRVSN OF NORMAL , SECOND TRIMESTER Z34.82 ENCOUNT ER FOR SUPRVSN OF NORMAL , SECOND TRI COMPARISON: 12/09/2018 TECHNIQUE: Static and Dynamic grayscale imaging performed of gravid uterus using transabdominal appr oach. Additional selected color Doppler and spectral images recorded. All stored on PACS. LIMITATIONS: None. FINDINGS: FETUSES SEEN:1 EGA: 28 weeks 5 days Calculated using BPD,FL,HC,AC documented on images. No discrepancy with clinica l dates. VAHID: 04/21/2019 EFW: 1,383 grams PERCENTILE: 58th ORESTES: 14.9 cm PLACENTA: Anterior grade 1 PRESENTATION: Cephalic. ANATOMY: HEART RATE: 115 beats per minute. FOUR CHAMBER HEART: Visualized. SPINE: Visualization is still suboptimal. MATERNAL ADNEXA: Maternal ovaries not visualized. CERVICAL LENGTH: 5.4 cm. Closed. OTHER: No other significant finding. Limited follow-up scan IMPRESSION: Limited follow-up scan confirms 4 chambered heart. Spine is grossly normal but visualiz ation is suboptimal. Trimester of : Third trimester - 28 weeks to delivery. TECHNICAL DOCUMENTATION: JOB ID: [id number] [employer]- All Rights Reserved Reading location - IP/workstation name: [email or web address]
== END ==
LOC: RAD 12:38
PROVIDERS: ATTEND Midwife
DX: Z34.83 Encounter for supervision of other normal pregnancy, third trimester (principal); Z3A.28 28 weeks gestation of pregnancy
CPT/HCPCS: 76805

== ENCOUNTER 2019-03-03 03:26 | Inpatient (IN) | payer MEDICAID ==
[2019-03-03 04:09] LABS: APPEARANCE,URINE CLEAR; BILIRUBIN,URINE NEGATIVE (NEGATIVE); COLOR,URINE YELLOW; GLUCOSE, URINE NEGATIVE (NEGATIVE); KETONES,URINE NEGATIVE (NEGATIVE); LEUKOCYTE ESTERASE,URINE NEGATIVE (NEGATIVE); NITRITE,URINE NEGATIVE (NEGATIVE); PROTEIN,URINE NEGATIVE (NEGATIVE); URINE SPECIFIC GRAVITY 1.005; UROBILINOGEN,URINE NEGATIVE mg/dL (<2.0)
[2019-03-03 04:24] LABS: URINE AMPHETAMINES SCREEN NEGATIVE; URINE BARBITURATES SCREEN NEGATIVE; URINE BENZODIAZEPINES SCREEN NEGATIVE; URINE COCAINE SCREEN NEGATIVE; URINE MARIJUANA (THC) SCREEN NEGATIVE; URINE METHADONE SCREEN NEGATIVE; URINE PHENCYCLIDINE SCREEN NEGATIVE
[2019-03-03] MEDS ORDERED: MAGNESIUM SULFATE 4 GM/100 ML RTUPB IV ONE ×2 (04:40→05:00)
[2019-03-03] MEDS ORDERED: BETAMET ACET/BETAMET NA INJ 6 MG/1 ML ONE (04:40)
[2019-03-03] MEDS ORDERED: MAGNESIUM SULFATE 20 GM/500 ML RTUINJ IV ONE ×2 (04:40→15:13)
[2019-03-03 04:51] LABS: RBCS (WET MOUNT) NO RBCS SEEN; T.VAGINALIS (WET MOUNT) NO TRICHOMONAS SEEN; WBCS (WET MOUNT) FEW WBCS SEEN; YEAST (WET MOUNT) NO YEAST SEEN
[2019-03-03] MEDS ORDERED: AMPICILLIN SOD INJ 2 GM VIAL ONE ×4 (04:54→23:12)
[2019-03-03] MEDS: BETAMET ACET/BETAMET NA INJ 6 MG/1 ML IM SCH (04:55)
[2019-03-03] MEDS ORDERED: AZITHROMYCIN INJ 500 MG VIAL IV ONE (04:55)
[2019-03-03] MEDS ORDERED: OXYTOCIN/NORMAL SALINE 0 UNIT/0 ML RTUINJ ONE (04:58)
[2019-03-03] MEDS ORDERED: LIDOCAINE 1% INJ-PF (10 MG/ML) 30 ML SDV ONE (04:58)
[2019-03-03] MEDS ORDERED: MISOPROSTOL 0.2 MG TABLET ONE (04:58)
[2019-03-03] MEDS ORDERED: OXYTOCIN 10 UNIT/ML VIAL ONE (04:58)
[2019-03-03] MEDS ORDERED: AMPICILLIN SOD INJ 2 GM VIAL IV SCH (05:00)
[2019-03-03] MEDS: MAGNESIUM SULFATE 20 GM/500 ML RTUINJ IV PRN ×2 (05:30→15:19)
[2019-03-03] MEDS ORDERED: AZITHROMYCIN INJ 500 MG VIAL IV SCH (06:00)
--- NOTE | 2019-03-03 06:24 | Admission Physical ---
Datetime Report Generated by CPN: 03/03/2019 06:23 CURRENT ADMISSION Chief Complaint: Suspected Ruptured Membranes Indication for Induction: PROM Admit Impression : , Intrauterine ; Ruptured Membranes Admit Plan: Admit to Unit; Initiate Labor Protocol Admit Plan- Other: Magnesium Sulfate and ACS protocol with betamethazone initiated. Antibiotic therapy for latency initiated. ALLERGIES Medication Allergies: No Medication Allergies: No Known Allergies (03/21/2016) Latex: No Latex Allergies OBSTETRICAL HISTORY EDC: 04/22/2019 00:00 : 4 Para: 1 Term: 0 : 1 SAB: 2 IAB: 0 Livin Gestational Diabetes: No Rh Sensitization: No Incompetent Cervix: No RITESH: No Infertility: No ART Treatment: No Uterine Anomaly: No IUGR: No Hx Previous C/S: No Macrosomia: No Hx Loss/Stillborn: No PIH: No Hx : No Placenta Previa/Abruption: No Depression/PP Depression: No PTL/PROM: No Post Hemorrhage: No Current Procedures: Ultrasound; NST Obstetrical History Comments: 2011 SAB G2 2013 SAB G3 03/21/2016 (PTL 36.1) G4 - Current SEE RECORDS Alcohol: No Marijuana : No Cocaine: No Other Illicit Drugs: No Cigarettes: Never Smoker. [id number] MEDICAL HISTORY Diabetes: No Blood Transfusion: No Pulmonary Disease (Asthma, TB): No Breast Disease: No Hypertension: No [employer] Surgery: No Heart Disease: No Hosp/Surgery: No Autoimmune Disorder: No Anesthetic Complications: No Kidney Disease: No Abnormal Pap Smear: No Neuro/Epilepsy: No Psychiatric Disorders: No Other Medical Diseases: No Hepatitis/Liver Disease: No Significant Family History: No Varicosities/Phlebitis: No Trauma/Violence : No Thyroid Dysfunction: No Medical History Comments: GDM with 3rd INFECTIOUS HISTORY Gonorrhea: No Genital Herpes: No Chlamydia: No Tuberculosis: No Syphilis: No Hepatitis: No HIV/AIDS Exposure: No Rash or Viral Illness: No HPV: No PHYSICAL EXAM General: Normal HEENT: Normal Neurologic: Normal Thyroid: Normal Heart: Normal Lungs: Normal Breast: Normal Back: Normal Abdomen: Normal Genitourinary Exam: Normal Extremities: Normal DTRs: Normal Pelvic Type: Adequate Vital Signs: Reviewed; Within Normal Limits MEMBRANES Pooling: Positive Membranes: Ruptured Amniotic Fluid Color: Clear FETUS A EGA: 32.6 Monitoring: External US FHR- Baseline: 110 Variability: Moderate 6-25bpm Accelerations: 10X10 Decelerations: None FHR Category: Category II Presentation: Vertex Admit Comment: d/w pt and regarding PROM and implictions for fetus. discussed plan of care and that will try to delay delivery until 34 weeks and induce at that time. She and voiced understanding. translating part of conversation as she is mostly Kiswahili speaking but does understand some Hungarian. Did discuss with them that even at 34 weeks NICU admission would be necessary. PLANS FOR LABOR AND DELIVERY Feeding Preference: Breast Circumcision: No INFORMED CONSENT Signature: with User ID: Jennifer
--- NOTE | 2019-03-03 06:24 | RADIOLOGY REPORT (SQ) ---
EXAM DESCRIPTION: US LIMITED COMPLETED DATE/TME: 03/03/2019 00:00 CLINICAL HISTORY: 28 years Female, Premature Rupture of Membranes, Confirm Vertex 32w6d Comparison: None. TECHNIQUE/LIMITATION: Targeted OB sonogram for requested parameters only. FINDINGS: Single IUP Cardiac activity: 145-bpm. ORESTES: 8.1-cm Placenta: Anterior.. No demonstrated abruption or previa. Presentation: Vertex. Cervical length: 5.4-cm. Closed appearance. IMPRESSION: Targeted OB sonogram for requested parameters
[2019-03-03 06:26] LABS: CHLAM PCR NOT DETECTED (NOT DETECT)
[2019-03-03 07:00] LABS: ABSOLUTE EOSINOPHILS # (AUTO) 0.1 10^3/uL (0.0-0.6); ABSOLUTE LYMPHOCYTES (AUTO) 2.4 10^3/uL (0.5-4.7); ABSOLUTE MONOCYTES (AUTO) 0.4 10^3/uL (0.1-1.4); ABSOLUTE NEUT (AUTO) 9.5 10^3/uL (1.7-8.2); BASOPHILS % (AUTO) 0.3 % (0-2); EOSINOPHILS % (AUTO) 1.2 % (0-6); HEMOGLOBIN 11.4 g/dL (12.0-15.5); LYMPHOCYTES % (AUTO) 18.9 % (13-45); MEAN CORPUSCULAR HEMOGLOBIN 27.9 pg (27.0-33.4); MEAN CORPUSCULAR HGB CONC 32.6 g/dL (32.0-36.0); MEAN CORPUSCULAR VOLUME 86 fl (80-97); MONOCYTES % (AUTO) 3.4 % (3-13); PLATELET COUNT 223 10^3/uL (150-450); RED BLOOD COUNT 4.09 10^6/uL (3.72-5.28); RED CELL DISTRIBUTION WIDTH 15.1 % (11.5-14.0); SEGMENTED NEUTROPHILS % (AUTO) 76.2 % (42-78); TOTAL CELLS COUNTED % (AUTO) 100 %; WHITE BLOOD COUNT 12.4 10^3/uL (4.0-10.5)
[2019-03-03] MEDS: AMPICILLIN SOD INJ 2 GM VIAL IV SCH ×3 (11:24→23:32)
[2019-03-03] MEDS: RINGERS SOLUTION,LACTATED 1,000 ML IV PRN (11:25)
--- NOTE | 2019-03-03 15:24 | RADIOLOGY REPORT (SQ) ---
EXAM DESCRIPTION: U/S OB LIMITED COMPLETED DATE/TIME: 03/03/2019 2:14 pm REASON FOR STUDY: Estimated weight COMPARISON: None. TECHNIQUE: Limited transvaginal grayscale ultrasound for evaluation of specific requested obstetrica l parameters. LIMITATIONS: None. FINDINGS: CERVICAL LENGTH: Cervix not visualized. ORESTES: 7.0 cm. FHR: 105 beats per minute. PRESENTATION: Cephalic. PLACENTA: Anterior ANATOMY: Not assessed OTHER: Estimated gestational age 30 weeks 6 days. IMPRESSION: LIMITED OBSTETRICAL ULTRASOUND WITH MEASURED PARAMETERS DELINEATED ABOVE. Trimester of : Third trimester - 28 weeks to delivery. TECHNICAL DOCUMENTATION: JOB ID: [id number] [employer]- All Rights Reserved Reading location - IP/workstation name: [email or web address]
[2019-03-03] MEDS ORDERED: AZITHROMYCIN 500 MG in DEXTROSE 5%-WATER 250 ML IV SCH (18:00)
[2019-03-03] MEDS: AZITHROMYCIN 500 MG in DEXTROSE 5%-WATER 250 ML IV SCH (18:21)
[2019-03-03] MEDS ORDERED: HYDROXYZINE PAMOATE 50 MG CAPSULE ONE (23:55)
[2019-03-04] MEDS ORDERED: HYDROXYZINE PAMOATE 50 MG CAPSULE PO ONE (00:15)
[2019-03-04] MEDS ORDERED: MAGNESIUM SULFATE 20 GM/500 ML RTUINJ IV ONE (00:52)
[2019-03-04] MEDS: MAGNESIUM SULFATE 20 GM/500 ML RTUINJ IV PRN (00:55)
[2019-03-04] MEDS ORDERED: BETAMET ACET/BETAMET NA INJ 6 MG/1 ML ONE (04:47)
[2019-03-04] MEDS: BETAMET ACET/BETAMET NA INJ 6 MG/1 ML IM SCH ×2 (04:51→12:46)
[2019-03-04] MEDS ORDERED: AMPICILLIN SOD INJ 2 GM VIAL ONE (05:26)
[2019-03-04] MEDS: AMPICILLIN SOD INJ 2 GM VIAL IV SCH ×2 (05:36→08:14)
[2019-03-04] MEDS: AZITHROMYCIN 500 MG in DEXTROSE 5%-WATER 250 ML IV SCH ×2 (06:23→18:46)
--- NOTE | 2019-03-04 08:10 | PDOC PROGRESS REPORT ---
Subjective Progress Note for:: 03/03/19 Subjective:: Patient denies pain, vaginal bleeding, fever, chills. Reports good FM. No issues today Reason For Visit: Physical Exam - Physical Exam Vital Signs: Intake & Output 03/02/19 03/03/19 03/04/19 06:59 06:59 06:59 Intake Total 1221 Balance 1221 Weight 104.9 kg General appearance: PRESENT: no acute distress, cooperative, well-developed Respiratory exam: PRESENT: clear to auscultation meredith Cardiovascular exam: PRESENT: RRR, +S1, +S2 GI/Abdominal exam: PRESENT: soft Neurological exam: PRESENT: alert, oriented to person, oriented to place, oriented to time Psychiatric exam: PRESENT: appropriate affect, normal mood Skin exam: PRESENT: dry, normal color, warm Result Laboratory Results: 03/03/19 06:44 03/03/19 03/03/19 06:44 06:44 WBC 12.4 H RBC 4.09 Hgb 11.4 L Hct 35.0 L MCV 86 MCH 27.9 MCHC 32.6 RDW 15.1 H Plt Count 223 Seg Neutrophils % 76.2 Blood Type O POSITIVE Antibody Screen NEGATIVE Impressions: Obstetrics Ultrasound 03/03/19 00:00 IMPRESSION: LIMITED OBSTETRICAL ULTRASOUND WITH MEASURED PARAMETERS DELINEATED ABOVE. Trimester of : Third trimester - 28 weeks to delivery. Assessment & Plan - Diagnosis (1) Gestational diabetes Qualifiers: Trimester: third trimester Is this a current diagnosis for this admission?: Yes (2) Rupture of membranes with delay of delivery Is this a current diagnosis for this admission?: Yes - Time Time Spent with patient: Less than 15 minutes - Plan Summary Plan Summary: 28 yo with PPROM at 32.6 wks EGA. -Exam negative. NO fundal pressure. VSS, afebrile -CEFM and toco. Reassuring _EFW today 1,639 gms 20% ORESTES 7 cm -S/p one dose BMZ, next is 03/04/19 am -Recieving ampicillin 2mgs IV Q 6 and azithromycin IV for infection prophylaxis -Magnesium sulfate at 2 gms/hr after 4 gm bolus . Will continue for 24 hrs and if delivery not emminent will d/c at that time. -CEFM and toco until off mag and if not laboring at that time and monitoring strip normal will plan on NST BID _SCDs until Mag Sulfate off
[2019-03-04] MEDS: RINGERS SOLUTION,LACTATED 1,000 ML IV PRN (08:15)
[2019-03-04] MEDS: AMPICILLIN SODIUM 2 GM in NORMAL SALINE 100 ML IV SCH (17:17)
[2019-03-04] MEDS: HYDROXYZINE PAMOATE 50 MG CAPSULE PO SCH (21:54)
[2019-03-05] MEDS: AMPICILLIN SODIUM 2 GM in NORMAL SALINE 100 ML IV SCH ×4 (00:09→18:09)
[2019-03-05] MEDS ORDERED: INFLUENZA QUAD (6MOS+) 2019-20 VAC 0.5 ML SYR IM ONE (00:17)
[2019-03-05] MEDS: AZITHROMYCIN 500 MG in DEXTROSE 5%-WATER 250 ML IV SCH (06:00)
[2019-03-05] MEDS: RINGERS SOLUTION,LACTATED 1,000 ML IV PRN (06:03)
--- NOTE | 2019-03-05 15:35 | PDOC PROGRESS REPORT ---
Subjective Progress Note for:: 03/05/19 - at 33 wks and 1 day. Here d/t PROM 2 days ago. S/p Betamethasone and Magnessium Sulfate. Betamethasone x 2given. Subjective:: Denies contractions, states having occassional cramping and loss of fluid. +FM Reason For Visit: Physical Exam - Physical Exam Vital Signs: Temp Pulse Resp BP Pulse Ox 98.7 F 56 L 17 140/65 H 100 03/05/19 12:48 03/05/19 12:48 03/05/19 12:48 03/05/19 12:48 03/05/19 12:48 Intake & Output 03/04/19 03/05/19 03/06/19 06:59 06:59 06:59 Intake Total 2221 2800 250 Output Total 350 Balance 2221 2450 250 Weight 114.3 kg General appearance: PRESENT: no acute distress GI/Abdominal exam: PRESENT: soft, other - gravid Psychiatric exam: PRESENT: normal mood - Obstetrical Exam Tender: No Result Laboratory Results: 03/03/19 06:44 03/03/19 04:28 Vaginal/Anorectal Group B Streptococcus Culture - Final GROUP B BETA HEMOLYTIC STREPTOCOCCUS RECOVERED Impressions: Obstetrics Ultrasound 03/03/19 00:00 IMPRESSION: LIMITED OBSTETRICAL ULTRASOUND WITH MEASURED PARAMETERS DELINEATED ABOVE. Trimester of : Third trimester - 28 weeks to delivery. Assessment & Plan - Diagnosis (1) 33 weeks gestation of Is this a current diagnosis for this admission?: Yes (2) Carrier or suspected carrier of group B Streptococcus Is this a current diagnosis for this admission?: Yes (3) Rupture of membranes with delay of delivery Is this a current diagnosis for this admission?: Yes (4) Gestational diabetes Qualifiers: Gestational diabetes mellitus control: diet-controlled Trimester: third trimester Qualified Code(s): O24.410 - Gestational diabetes mellitus in , diet controlled Is this a current diagnosis for this admission?: Yes - Time Time Spent with patient: Less than 15 minutes - Plan Summary Plan Summary: Continue with plan of care as long as pt is afebrile with reactive NST and no signs of labor
[2019-03-05 18:49] LABS: HEMATOCRIT 33.9 % (36.0-47.0); HEMOGLOBIN 11.3 g/dL (12.0-15.5); MEAN CORPUSCULAR HEMOGLOBIN 28.5 pg (27.0-33.4); MEAN CORPUSCULAR HGB CONC 33.4 g/dL (32.0-36.0); MEAN CORPUSCULAR VOLUME 86 fl (80-97); PLATELET COUNT 224 10^3/uL (150-450); RED BLOOD COUNT 3.97 10^6/uL (3.72-5.28); RED CELL DISTRIBUTION WIDTH 15.4 % (11.5-14.0)
[2019-03-05 19:24] LABS: ABSOLUTE LYMPHOCYTES# (MANUAL) 3.6 10^3/uL (0.5-4.7); ABSOLUTE MONOCYTES # (MANUAL) 1.4 10^3/uL (0.1-1.4); BAND NEUTROPHILS % (MANUAL) 1 % (3-5); BASOPHILS % (MANUAL) 1 % (0-2); EOSINOPHILS % (MANUAL) 1 % (0-6); LYMPHOCYTES % (MANUAL) 24 % (13-45); MONOCYTES % (MANUAL) 10 % (3-13); SEGMENTED NEUTROPHILS % (MAN) 61 % (42-78); TOTAL CELLS COUNTED 100
[2019-03-05 19:25] LABS: ANISOCYTOSIS SLIGHT; PLATELET COMMENT ADEQUATE
--- NOTE | 2019-03-05 20:23 | RADIOLOGY REPORT (SQ) ---
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 COMPARISON: None. TECHNIQUE: Grayscale, color Doppler, and spectral Doppler ultrasound images of the pelvis were obtained. FINDINGS: There is an intrauterine gestation in breech presentation. The heart rate is 120 bpm. Placenta is anterior. ORESTES is 1.36 cm. Cervix is 3.0 cm. IMPRESSION: Findings as noted above.
[2019-03-05] MEDS ORDERED: HYDROXYZINE PAMOATE 50 MG CAPSULE ONE (21:57)
[2019-03-05] MEDS ORDERED: CITRIC ACID/SODIUM CITRATE ORAL SOLN 15 ML UDCUP ONE (22:09)
[2019-03-05] MEDS ORDERED: CEFAZOLIN INJ 1 GM VIAL ONE ×2 (22:09→22:15)
[2019-03-05] MEDS ORDERED: FENTANYL CITRATE INJ/PF 100 MCG/2 ML AMPUL ONE ×2 (22:37→22:53)
[2019-03-05] MEDS ORDERED: OXYTOCIN 10 UNIT/ML VIAL ONE (22:37)
[2019-03-05] MEDS ORDERED: KETOROLAC TROMETHAMINE 60 MG/2 ML SDV ONE (22:37)
[2019-03-05] MEDS ORDERED: ONDANSETRON HCL INJ/PF 4 MG/2 ML SDV ONE (22:37)
[2019-03-05] MEDS ORDERED: LABETALOL HCL INJ 20 MG/4 ML DISP.SYRIN IV ONE (23:26)
[2019-03-05] MEDS ORDERED: ACETAMINOPHEN 325 MG TABLET PO PRN (23:28)
[2019-03-05] MEDS ORDERED: HYDROMORPHONE HCL INJ/PF 2 MG/ML AMPULE IV PRN (23:28)
[2019-03-05] MEDS ORDERED: SIMETHICONE 80 MG TAB.CHEW PO PRN (23:28)
[2019-03-05] MEDS ORDERED: OXYTOCIN/NORMAL SALINE 20 UNIT/1,000 ML RTUINJ IV PRN (23:28)
[2019-03-05] MEDS ORDERED: ACETAMINOPHEN 1,000 MG/100 ML RTUPB IV PRN (23:28)
[2019-03-05] MEDS ORDERED: MEASLES,MUMPS&RUBELLA VACC/PF 0.5 ML VIAL SUBCUT PRN (23:28)
[2019-03-05] MEDS ORDERED: PROMETHAZINE HCL INJ 25 MG/1 ML VIAL IV PRN (23:28)
[2019-03-05] MEDS ORDERED: OXYCODONE-ACETAMINOPHEN 5-325 MG TABLET PO PRN (23:28)
[2019-03-05] MEDS ORDERED: DIPH/PERTUSS(ACELL)/TETANUS VAC/PF 0.5 ML SYR (>=10YO) IM PRN (23:28)
[2019-03-06] MEDS ORDERED: NIFEDIPINE 30 MG TAB.ER.24 PO ONE ×2 (00:04→01:00)
[2019-03-06] MEDS ORDERED: KETOROLAC TROMETHAMINE INJ/PF 30 MG/1 ML SDV IV ONE (00:15)
--- NOTE | 2019-03-06 00:22 | Operative Report ---
Operative Report DATE OF SURGERY: 03/05/19 PREOPERATIVE DIAGNOSIS: 33+1ega, PPROM, Footling breech presentation, active la bor POSTOPERATIVE DIAGNOSIS: STEFANIA - delivered OPERATION: Primary section SURGEON: JENNIFER BIRD ANESTHESIA: Spinal TISSUE REMOVED OR ALTERED: placenta and cord sent to pathology COMPLICATIONS: None QUANTITATIVE BLOOD LOSS: 530 INTRAOPERATIVE FINDINGS: VMI delivered at 2235, weight 3#14oz, Apgars 8/9, normal bilateral tubes/ovaries, normal uterus. PROCEDURE: Anesthesia provider: [Rosario mora MD, Anaid Castro CRNA] Urine output: [100ml] IV fluids: [1200ml] Complications: [None] Specimens: [None] Indications: [28yo at 33+1ega presents from the floor as she is currently admitted for PPROM and is on antibiotics for latency. On admission the baby was vertex. She was brought from the floor for evaluation due to report of increasing leakage of fluid, vaginal spotting and increase in contractions. The patient was initially comfortable appearing and cervical exam unchanged with no presenting part felt then began to become increasing uncomfor table and cervix was then 4cm with foot in the vagina. She declines BTL and desires to have have a vasectomy. Footling breech presentation with Active labor and PPROM was reviewed with patient and family and urgent need for delivery by cesaren section reviewed. The risks, benefits, and alternatives were reviewed and she desires to proceed with planned procedure. See note in CPN] Procedure: The patient was taken to the operating room where spinal anesthesia was obtained and found to be adequate. She was then prepped and draped in the normal sterile fashion and placed in the dorsal supine position with a leftward tilt. A Pfannenstiel skin incision was then made and carried through to the underlying layers of the fascia with the scalpel. The fascia was incised in the midline and the incision extended laterally with the Hughes scissors. The superior aspect of the fascial incision was then grasped with rios clamps elevated and the underlying rectus muscles dissected off [bluntly]. Attention was then turned to the inferior aspect of the fascial incision which in a similar fashion was grasped, tented up with Rios clamps, and the rectus muscles dissected off [bluntly]. The rectus muscles were then in the midline and the peritoneum at the amount identified and entered [bluntly]. The peritoneal incision was then extended superiorly and inferiorly with good visualization of the bladder. The bladder blade was inserted and the vesicouterine peritoneum identified grasped with [place] pickups and entered sharply with the Metzenbaum scissors. This incision was then extended laterally with the Metzenbaum scissors and a bladder flap created digitally. The bladder blade was then reinserted and the lower uterine segment incised in a transverse fashion with the scalpel. The uterine incision was then extended bluntly. The bladder blade was removed and the was delivered from footling breech presenation atraumatically. The nose and mouth were suctioned and the cord doubly clamped and cut. And the infant was handed off to waiting pediatricians. The placenta was then delivered spontaneously and the uterus exteriorized and cleared of all clots and debris. The uterine incision was then repaired with 1- 0 Vicryl in a running locked fashion. A second layer of the same suture was used to obtain hemostasis via imbrication of the initial layer. The bladder flap was then repaired with 3-0 chromic in a running fashion. The uterus was returned to the patient's abdomen and Interceed was placed overlying the uterine incision to prevent adhesions. The gutters were cleared of all clots and debris. All operative sites were noted to be hemostatic. The fascia was reapproximated with 0 Vicryl in a running fashion from each lateral edge to the midline. The skin was closed with 3-0 Monocryl in a running subcuticular fashion with overlying Dermabond for additional dressing as well as wound closure. The patient tolerated the procedure well. Sponge lap needle and instrument counts are correct times 2. 3 g of Ancef were given prior to skin incision. The patient was taken to the recovery area awake and in stable condition.
[2019-03-06 00:32] LABS: HEMATOCRIT 34.1 % (36.0-47.0); HEMOGLOBIN 11.1 g/dL (12.0-15.5); MEAN CORPUSCULAR HEMOGLOBIN 28.1 pg (27.0-33.4); MEAN CORPUSCULAR HGB CONC 32.7 g/dL (32.0-36.0); MEAN CORPUSCULAR VOLUME 86 fl (80-97); PLATELET COUNT 219 10^3/uL (150-450); RED BLOOD COUNT 3.96 10^6/uL (3.72-5.28); RED CELL DISTRIBUTION WIDTH 15.2 % (11.5-14.0); WHITE BLOOD COUNT 18.2 10^3/uL (4.0-10.5)
[2019-03-06] MEDS ORDERED: OXYCODONE-ACETAMINOPHEN 5-325 MG TABLET ONE (00:37)
[2019-03-06] MEDS ORDERED: MORPHINE SULFATE 10 MG/ML INJ ONE (00:39)
[2019-03-06 01:08] LABS: ALBUMIN 2.7 g/dL (3.5-5.0); ALKALINE PHOSPHATASE 111 U/L (38-126); ANION GAP 7 (5-19); ASPARTATE AMINO TRANSFERASE 21 U/L (14-36); BILIRUBIN,DIRECT 0.1 mg/dL (0.0-0.4); BILIRUBIN,TOTAL 0.2 mg/dL (0.2-1.3); BLOOD UREA NITROGEN 8 mg/dL (7-20); CALCIUM 8.7 mg/dL (8.4-10.2); CARBON DIOXIDE 18 mmol/L (22-30); CHLORIDE 113 mmol/L (98-107); GLUCOSE 152 mg/dL (75-110); POTASSIUM 4.4 mmol/L (3.6-5.0); TOTAL PROTEIN 6.1 g/dL (6.3-8.2); URIC ACID 3.1 mg/dL (2.5-6.2)
[2019-03-06] MEDS ORDERED: HYDRALAZINE HCL INJ/PF 20 MG/1 ML SDV ONE (01:09)
--- NOTE | 2019-03-06 01:58 | Warning Signs in Babies ---
VOD Warning Signs Datetime Report Generated by [facility]: 03/06/2019 01:58 VOD#608 -Warning Signs in Babies: Needs to be viewed. (03/03/2019 03:57:Adia Williamson RN)
[2019-03-06] MEDS: RINGERS SOLUTION,LACTATED 1,000 ML IV PRN ×2 (03:10→11:36)
[2019-03-06] MEDS ORDERED: KETOROLAC TROMETHAMINE INJ/PF 30 MG/1 ML SDV ONE (07:11)
[2019-03-06] MEDS: KETOROLAC TROMETHAMINE INJ/PF 30 MG/1 ML SDV IV SCH ×2 (07:40→15:48)
[2019-03-06 07:49] LABS: HEMATOCRIT 32.3 % (36.0-47.0); HEMOGLOBIN 10.6 g/dL (12.0-15.5); MEAN CORPUSCULAR HEMOGLOBIN 28.2 pg (27.0-33.4); MEAN CORPUSCULAR HGB CONC 32.7 g/dL (32.0-36.0); MEAN CORPUSCULAR VOLUME 86 fl (80-97); PLATELET COUNT 198 10^3/uL (150-450); RED BLOOD COUNT 3.76 10^6/uL (3.72-5.28); RED CELL DISTRIBUTION WIDTH 15.2 % (11.5-14.0); WHITE BLOOD COUNT 21.9 10^3/uL (4.0-10.5)
[2019-03-06] MEDS: PRENATAL VITAMIN W DHA CAPSULE PO SCH (09:59)
[2019-03-06] MEDS: DOCUSATE SODIUM 100 MG CAPSULE PO SCH ×2 (09:59→18:02)
--- NOTE | 2019-03-06 11:17 | PDOC PROGRESS REPORT ---
Subjective-OB Progress Note for:: 03/06/19 - POD#1, s/p for 33 wks PROM and PTL, Physical Exam (OB) Vital Signs: Temp Pulse Resp BP Pulse Ox 97.9 F 63 18 122/68 99 03/06/19 08:00 03/06/19 08:00 03/06/19 08:00 03/06/19 08:00 03/06/19 08:00 Intake & Output 03/05/19 03/06/19 03/07/19 06:59 06:59 06:59 Intake Total 2800 500 Output Total 350 1000 Balance 2450 -500 Weight 114.3 kg - General General Appearance: Appears well, Alert - PIH/Pre-Eclampsia DTR's: 1 + Clonus: Negative Headache: Absent Epigastric Pain: No Visual Changes: No - Incision: Open, Well Approximated Closure Type: Surgical Glue - Lochia Lochia Amount: Small 10-25 ml Lochia Color: Rubra/Red - Abdomen Description: Tender, Soft, Round Hernia Present: No Fundal Description: Firm, Midline Fundal Height: u/u - u/2 - Respiratory Respiratory Status: No respiratory distress Breath sounds: Clear - Cardiovascular Rhythm: Regular Heart Sounds: Normal auscultation - Abdominal Inspection: Normal Distension: No distension Tenderness: Nontender Abdominal Notes: +bowel sounds - Extremities Upper extremity: Normal inspection Lower extremities: Normal inspection - Neurological Cognition: Normal - Psychological Associated symptoms: Normal affect, Normal mood - Skin Skin Temperature: Warm Skin Moisture: Dry Objective-Diagnostic Laboratory: 03/06/19 06:25 03/06/19 00:22 03/05/19 03/06/19 03/06/19 18:41 00:22 00:22 WBC 14.0 H 18.2 H RBC 3.97 3.96 Hgb 11.3 L 11.1 L Hct 33.9 L 34.1 L MCV 86 86 MCH 28.5 28.1 MCHC 33.4 32.7 RDW 15.4 H 15.2 H Plt Count 224 219 Seg Neutrophils % Not Reportable Sodium 137.6 Potassium 4.4 Chloride 113 H Carbon Dioxide 18 L Anion Gap 7 BUN 8 Creatinine 0.47 L Est GFR ( Amer) > 60 Glucose 152 H Uric Acid 3.1 Calcium 8.7 Total Bilirubin 0.2 AST 21 Alkaline Phosphatase 111 Total Protein 6.1 L Albumin 2.7 L 03/06/19 06:25 WBC 21.9 H RBC 3.76 Hgb 10.6 L Hct 32.3 L MCV 86 MCH 28.2 MCHC 32.7 RDW 15.2 H Plt Count 198 Seg Neutrophils % Sodium Potassium Chloride Carbon Dioxide Anion Gap BUN Creatinine Est GFR ( Amer) Glucose Uric Acid Calcium Total Bilirubin AST Alkaline Phosphatase Total Protein Albumin 03/03/19 04:28 Vaginal/Anorectal Group B Streptococcus Culture - Final GROUP B BETA HEMOLYTIC STREPTOCOCCUS RECOVERED Assessment and Plan(PN) - Assessment and Plan (1) 33 weeks gestation of Is this a current diagnosis for this admission?: Yes (2) Carrier or suspected carrier of group B Streptococcus Is this a current diagnosis for this admission?: Yes (3) Rupture of membranes with delay of delivery Is this a current diagnosis for this admission?: Yes (4) Gestational diabetes Qualifiers: Gestational diabetes mellitus control: diet-controlled Trimester: third trimester Qualified Code(s): O24.410 - Gestational diabetes mellitus in , diet controlled Is this a current diagnosis for this admission?: Yes - Time Spent with Patient Time with patient: Less than 15 minutes Medications reviewed and adjusted accordingly: Yes - Disposition Anticipated Discharge: Home Within: within 48 hours
[2019-03-06] MEDS: AMPICILLIN SODIUM 2 GM in NORMAL SALINE 100 ML IV SCH ×2 (11:33→18:03)
[2019-03-06] MEDS: OXYCODONE-ACETAMINOPHEN 5-325 MG TABLET PO PRN ×3 (12:00→22:16)
[2019-03-06] MEDS: IBUPROFEN 800 MG TABLET PO SCH (20:13)
[2019-03-06 22:28] LABS: UR PRO/CREAT RATIO RESULT 0.8 mg/mg (0.0-0.2); URINE CREATININE 50.6 mg/dL (16-327); URINE PROTEIN 41.2 mg/dL (<12)
[2019-03-06] MEDS: HYDROXYZINE PAMOATE 50 MG CAPSULE PO SCH (23:29)
[2019-03-07] MEDS: IBUPROFEN 800 MG TABLET PO SCH ×4 (03:22→22:22)
[2019-03-07 08:09] LABS: HEMATOCRIT 29.6 % (36.0-47.0); MEAN CORPUSCULAR HEMOGLOBIN 28.6 pg (27.0-33.4); MEAN CORPUSCULAR HGB CONC 33.7 g/dL (32.0-36.0); MEAN CORPUSCULAR VOLUME 85 fl (80-97); PLATELET COUNT 176 10^3/uL (150-450); RED BLOOD COUNT 3.49 10^6/uL (3.72-5.28); RED CELL DISTRIBUTION WIDTH 15.2 % (11.5-14.0); WHITE BLOOD COUNT 15.2 10^3/uL (4.0-10.5)
[2019-03-07] MEDS: DOCUSATE SODIUM 100 MG CAPSULE PO SCH ×2 (09:03→18:03)
[2019-03-07] MEDS: PRENATAL VITAMIN W DHA CAPSULE PO SCH (09:04)
--- NOTE | 2019-03-07 09:58 | PDOC PROGRESS REPORT ---
Subjective-OB Progress Note for:: 03/07/19 - POD #2, pt c/o of headache that increases w/ sitting up in the bed. Baby remains in NICU at 33 wks gestation. O+, Rubella Immune, s/p dut to breech presentation w/ PROM. Physical Exam (OB) Vital Signs: Temp Pulse Resp BP Pulse Ox 98.7 F 60 20 138/56 H 99 03/07/19 09:31 03/07/19 09:31 03/07/19 09:31 03/07/19 09:31 03/07/19 09:31 Intake & Output 03/06/19 03/07/19 03/08/19 06:59 06:59 06:59 Intake Total 600 1500 Output Total 1000 4000 Balance -400 -2500 - General General Appearance: Alert In distress: Mild Note:: due to her headache - PIH/Pre-Eclampsia DTR's: 1 + Clonus: Negative Headache: Absent Epigastric Pain: No Visual Changes: No - Dressing Removed: No Incision: Well Approximated Closure Type: Surgical Glue - Lochia Lochia Amount: Scant < 10 ml Lochia Color: Rubra/Red - Abdomen Description: Soft Hernia Present: No Fundal Description: Firm, Midline Fundal Height: u/u - u/2 - Respiratory Respiratory Status: No respiratory distress - Genitourinary Genitourinary Note: voiding - Extremities Upper extremity: Normal inspection Lower extremities: Normal inspection - Neurological Cognition: Normal Orientation: AAOx4 - Psychological Associated symptoms: Normal affect - Skin Skin Temperature: Warm Skin Moisture: Dry Objective-Diagnostic Laboratory: 03/07/19 07:13 03/06/19 00:22 03/07/19 07:13 WBC 15.2 H RBC 3.49 L Hgb 10.0 L Hct 29.6 L MCV 85 MCH 28.6 MCHC 33.7 RDW 15.2 H Plt Count 176 Assessment and Plan(PN) - Assessment and Plan (1) 33 weeks gestation of Is this a current diagnosis for this admission?: Yes (2) Carrier or suspected carrier of group B Streptococcus Is this a current diagnosis for this admission?: Yes (3) Rupture of membranes with delay of delivery Is this a current diagnosis for this admission?: Yes (4) Gestational diabetes Qualifiers: Gestational diabetes mellitus control: diet-controlled Trimester: third trimester Qualified Code(s): O24.410 - Gestational diabetes mellitus in p regnancy, diet controlled Is this a current diagnosis for this admission?: Yes Plan: Will have anesthesia come assess pt due to suspected spinal headache. Routine PP orders - Time Spent with Patient Time with patient: Less than 15 minutes Medications reviewed and adjusted accordingly: Yes - Disposition Anticipated Discharge: Home Within: within 24 hours
[2019-03-07] MEDS ORDERED: NIFEDIPINE 30 MG TAB.ER.24 PO SCH (10:00)
[2019-03-07] MEDS: HYDROXYZINE PAMOATE 50 MG CAPSULE PO SCH (22:26)
[2019-03-08] MEDS: HYDROXYZINE PAMOATE 50 MG CAPSULE PO SCH (01:19)
[2019-03-08] MEDS: IBUPROFEN 800 MG TABLET PO SCH ×3 (03:55→14:21)
[2019-03-08] MEDS: PRENATAL VITAMIN W DHA CAPSULE PO SCH (09:59)
[2019-03-08] MEDS: DOCUSATE SODIUM 100 MG CAPSULE PO SCH (09:59)
[2019-03-08 11:37] VITALS: BP 120/63
--- NOTE | 2019-03-08 11:56 | PDOC DISCHARGE SUMMARY ---
Impression - Admit/DC Date/PCP Admission Date/Primary Care Provider: 03/03/19 04:53 KENNY BHATT CNM Discharge Date: 03/08/19 - Discharge Diagnosis (1) 33 weeks gestation of Is this a current diagnosis for this admission?: Yes (2) Active labor Is this a current diagnosis for this admission?: Yes (3) Breech presentation delivered Is this a current diagnosis for this admission?: Yes (4) Carrier or suspected carrier of group B Streptococcus Is this a current diagnosis for this admission?: Yes (5) Rupture of membranes with delay of delivery Is this a current diagnosis for this admission?: Yes (7) Gestational diabetes Is this a current diagnosis for this admission?: Yes - Additional Information Resuscitation Status: Full Code Discharge Diet: As Tolerated Discharge Activity: Activity As Tolerated, Balance Activity w/Rest, No Lifting Over 10 Pounds, Pelvic Rest, No tub bath Referrals: KENNY BHATT CNM [Primary Care Provider] - Prescriptions: Oxycodone HCl/Acetaminophen [Percocet 5-325 mg Tablet] 1 tab PO Q4HP PRN #30 tablet PRN Reason: Docusate Sodium [Colace 100 mg Capsule] 100 mg PO BID #60 capsule Ibuprofen [Motrin 800 mg Tablet] 800 mg PO Q6A #60 tablet Home Medications: Vit 90/Iron Fum/Folic [ Formula Tablet] 1 each PO DAILY 02/02/15 Docusate Sodium [Colace 100 mg Capsule] 100 mg PO BID #60 capsule 03/08/19 Ibuprofen [Motrin 800 mg Tablet] 800 mg PO Q6A #60 tablet 03/08/19 Oxycodone HCl/Acetaminophen [Percocet 5-325 mg Tablet] 1 tab PO Q4HP PRN #30 tablet 03/08/19 Results Laboratory Results: WBC 15.2 10^3/uL (4.0-10.5) H 03/07/19 07:13 RBC 3.49 10^6/uL (3.72-5.28) L 03/07/19 07:13 Hgb 10.0 g/dL (12.0-15.5) L 03/07/19 07:13 Hct 29.6 % (36.0-47.0) L 03/07/19 07:13 MCV 85 fl (80-97) 03/07/19 07:13 MCH 28.6 pg (27.0-33.4) 03/07/19 07:13 MCHC 33.7 g/dL (32.0-36.0) 03/07/19 07:13 RDW 15.2 % (11.5-14.0) H 03/07/19 07:13 Plt Count 176 10^3/uL (150-450) 03/07/19 07:13 Lymph % (Auto) Not Reportable 03/05/19 18:41 [place] % (Auto) Not Reportable 03/05/19 18:41 Eos % (Auto) Not Reportable 03/05/19 18:41 Baso % (Auto) Not Reportable 03/05/19 18:41 Absolute Neuts (auto) Not Reportable 03/05/19 18:41 Absolute Lymphs (auto) Not Reportable 03/05/19 18:41 Absolute Monos (auto) Not Reportable 03/05/19 18:41 Absolute Eos (auto) Not Reportable 03/05/19 18:41 Absolute Basos (auto) Not Reportable 03/05/19 18:41 Total Counted 100 03/05/19 18:41 Seg Neutrophils % Not Reportable 03/05/19 18:41 Seg Neuts % (Manual) 61 % (42-78) 03/05/19 18:41 Band Neutrophils % 1 % (3-5) L 03/05/19 18:41 Lymphocytes % (Manual) 24 % (13-45) 03/05/19 18:41 Atypical Lymphs % 2 % (0) 03/05/19 18:41 Monocytes % (Manual) 10 % (3-13) 03/05/19 18:41 Eosinophils % (Manual) 1 % (0-6) 03/05/19 18:41 Basophils % (Manual) 1 % (0-2) 03/05/19 18:41 Abs Neuts (Manual) 8.7 10^3/uL (1.7-8.2) H 03/05/19 18:41 Abs Lymphs (Manual) 3.6 10^3/uL (0.5-4.7) 03/05/19 18:41 Abs Monocytes (Manual) 1.4 10^3/uL (0.1-1.4) 03/05/19 18:41 Absolute Eos (Manual) 0.1 10^3/uL (0.0-0.6) 03/05/19 18:41 Abs Basophils (Manual) 0.1 10^3/uL (0.0-0.2) 03/05/19 18:41 Platelet Comment ADEQUATE 03/05/19 18:41 Anisocytosis SLIGHT 03/05/19 18:41 Sodium 137.6 mmol/L (137-145) 03/06/19 00:22 Potassium 4.4 mmol/L (3.6-5.0) 03/06/19 00:22 Chloride 113 mmol/L (98-107) H 03/06/19 00:22 Carbon Dioxide 18 mmol/L (22-30) L 03/06/19 00:22 Anion Gap 7 (5-19) 03/06/19 00:22 BUN 8 mg/dL (7-20) 03/06/19 00:22 Creatinine 0.47 mg/dL (0.52-1.25) L 03/06/19 00:22 Est GFR ( Amer) > 60 (>60) 03/06/19 00:22 Est GFR (MDRD) Non-Af > 60 (>60) 03/06/19 00:22 Glucose 152 mg/dL (75-110) H 03/06/19 00:22 Uric Acid 3.1 mg/dL (2.5-6.2) 03/06/19 00:22 Calcium 8.7 mg/dL (8.4-10.2) 03/06/19 00:22 Total Bilirubin 0.2 mg/dL (0.2-1.3) 03/06/19 00:22 Direct Bilirubin 0.1 mg/dL (0.0-0.4) 03/06/19 00:22 Neonat Total Bilirubin Not Reportable 03/06/19 00:22 Neonat Direct Bilirubin Not Reportable 03/06/19 00:22 Neonat Indirect Bili Not Reportable 03/06/19 00:22 AST 21 U/L (14-36) 03/06/19 00:22 ALT 21 U/L (<35) 03/06/19 00:22 Alkaline Phosphatase 111 U/L (38-126) 03/06/19 00:22 Lactate Dehydrogenase 203 U/L (120-246) 03/06/19 00:22 Total Protein 6.1 g/dL (6.3-8.2) L 03/06/19 00:22 Albumin 2.7 g/dL (3.5-5.0) L 03/06/19 00:22 Urine Color YELLOW 03/03/19 03:42 Urine Appearance CLEAR 03/03/19 03:42 Urine pH 7.0 (5.0-9.0) 03/03/19 03:42 Ur Specific [place] 1.005 03/03/19 03:42 Urine Protein NEGATIVE mg/dL (NEGATIVE) 03/03/19 03:42 Urine Glucose (UA) NEGATIVE mg/dL (NEGATIVE) 03/03/19 03:42 Urine Ketones NEGATIVE mg/dL (NEGATIVE) 03/03/19 03:42 Urine Blood NEGATIVE (NEGATIVE) 03/03/19 03:42 Urine Nitrite NEGATIVE (NEGATIVE) 03/03/19 03:42 Urine Bilirubin NEGATIVE (NEGATIVE) 03/03/19 03:42 Urine Urobilinogen NEGATIVE mg/dL (<2.0) 03/03/19 03:42 Ur Leukocyte Esterase NEGATIVE (NEGATIVE) 03/03/19 03:42 Urine WBC (Auto) 1 /HPF 03/03/19 03:42 Urine RBC (Auto) 0 /HPF 03/03/19 03:42 Squamous Epi Cells Auto 2 /HPF 03/03/19 03:42 Urine Mucus (Auto) RARE /LPF 03/03/19 03:42 Urine Creatinine 50.6 mg/dL (16-327) 03/06/19 21:45 Protein/Creatinin Ratio 0.8 mg/mg (0.0-0.2) H 03/06/19 21:45 Urine Total Protein 41.2 mg/dL (<12) H 03/06/19 21:45 Urine Ascorbic Acid NEGATIVE (NEGATIVE) 03/03/19 03:42 Membranes Rupture POSITIVE (NEGATIVE) H 03/03/19 03:42 Trichomonas (Wet Prep) NO TRICHOMONAS SEEN 03/03/19 04:28 Vaginal WBC FEW WBCS SEEN 03/03/19 04:28 Vaginal RBC NO RBCS SEEN 03/03/19 04:28 Vaginal Yeast NO YEAST SEEN 03/03/19 04:28 Urine Opiates Screen NEGATIVE 03/03/19 03:42 Urine Methadone Screen NEGATIVE 03/03/19 03:42 Ur Barbiturates Screen NEGATIVE 03/03/19 03:42 Ur Phencyclidine Scrn NEGATIVE 03/03/19 03:42 Ur Amphetamines Screen NEGATIVE 03/03/19 03:42 U Benzodiazepines Scrn NEGATIVE 03/03/19 03:42 Urine Cocaine Screen NEGATIVE 03/03/19 03:42 U Marijuana (THC) Screen NEGATIVE 03/03/19 03:42 RPR NONREACTIVE (NONREACTIVE) 03/03/19 06:44 Chlamydia DNA (PCR) NOT DETECTED (NOT DETECT) 03/03/19 04:28 N.gonorrhoeae DNA (PCR) NOT DETECTED (NOT DETECT) 03/03/19 04:28 Blood Type O POSITIVE 03/03/19 06:44 Antibody Screen NEGATIVE 03/03/19 06:44 Impressions: Obstetrics Ultrasound 03/03/19 00:00 IMPRESSION: Targeted OB sonogram for requested parameters Obstetrics Ultrasound 03/03/19 00:00 IMPRESSION: LIMITED OBSTETRICAL ULTRASOUND WITH MEASURED PARAMETERS DELINEATED ABOVE. Trimester of : Third trimester - 28 weeks to delivery. Obstetrics Ultrasound 03/05/19 00:00 IMPRESSION: Findings as noted above.
--- NOTE | 2019-03-09 10:39 | Delivery Summary ---
Del Sum A-C Datetime Report Generated by CPN: 03/09/2019 10:39 DELIVERY PERSONNEL DELIVERY PERSONNEL: [id number] Delivery Doctor:: Lavern Kyle MD Delivery Doctor:: Lavern Kyle MD Anesthesiologist:: Leanna Fortune MD Anesthesiologist:: Leanna Fortune MD MECHANICAL DEVELOPMENT ENGINEER:: Anaid Castro, MECHANICAL DEVELOPMENT ENGINEER MECHANICAL DEVELOPMENT ENGINEER:: Anaid Castro MECHANICAL DEVELOPMENT ENGINEER Labor and Delivery Nurse:: Norma Baires RNdevelopmental mathematics instructor Nurse:: Meliza Diaz RN Manager Of Business Operations:: Norma Baires RN Manager Of Business Operations:: Norma Baires RN Neonatal Nurse Practitioner:: KATTY Cee Nursery Nurse:: Evelyn Lomas RN Senior Drupal Developer/BUTCHER'S ASSISTANT: ST Daniel Senior Drupal Developer/BUTCHER'S ASSISTANT: ST Teresa Senior Drupal Developer/BUTCHER'S ASSISTANT: Daja Harrell ST Senior Drupal Developer/BUTCHER'S ASSISTANT: Ramyacamelia Saenz, ST MATERNAL INFORMATION Delivery Anesthesia: Spinal Medications After Delivery: Pitocin Drip 20 Units/1000ml NSS Delivery QBL: 530 Maternal Complications: Premature Rupture of Membranes LABOR SUMMARY EDC: 04/22/2019 00:00 No. Babies in Womb: 1 Attempted: No Labor Anesthesia: None LABOR INFORMATION Reason for Induction: Not Applicable Oxytocin: N/A Group B Beta Strep: 1 GROUP B BETA HEMOLYTIC STREPTOCOCCUS RECOVERED Penicillin and ampicillin are drugs of choice for treatment of beta-hemolytic streptococcal infections. Susceptibility testing of penicillins and other beta-lactam agents approved by the FDA for treatment of beta-hemolytic streptococcal infections need not be performed routinely because nonsusceptible isolates are extremely rare in any beta-hemolytic streptococcus and have not been reported for Streptococcus pyogenes (group A). (CLSI) Group B Beta Strep: UNKNOWN Antibiotics # of Doses: 1 Antibiotics Time of Last Dose: 0 Name of Antibiotic Given: Ancef 3 g Steroids Given: > 24 Hours before Delivery Reason Steroids Not Administered: Not Applicable MEMBRANES Membranes Rupture Method: Spontaneous Rupture of Membranes: 03/03/2019 01:00 Length of Rupture (hr): 69.58 Amniotic Fluid Color: Clear Amniotic Fluid Amount: Moderate Amniotic Fluid Odor: None STAGES OF LABOR Stage 3 hr: 24 Stage 3 min: 6 VAGINAL DELIVERY Laceration Extension #1: N/A Sponge Count Correct: N/A CSECTION DELIVERY Primary Indication: Breech Presentation Secondary Indication: N/A CSection Urgency: Emergency CSection Incidence: Primary Labor: N/A Elective: Nonelective CSection Incision: Lower Uterine Transverse CSection Incision: Lower Uterine Transverse BABY A INFORMATION Infant Delivery Date/Time: 03/05/2019 22:35 Method of Delivery: Born in Route : No : N/A Forceps: N/A Vacuum Extraction: N/A Shoulder Dystocia : No PRESENTATION/POSITION BABY A Presentation: Breech Cephalic Presentation: N/A Breech Presentation: Single Footling PLACENTA INFORMATION BABY A Placenta Delivery Time : 03/06/2019 22:41 Placenta Method of Delivery: Manual Removal Placenta Status: Delivered SCORES BABY A Heart Rate 1 min: >100 bpm Resp Effort 1 min: Good Cry Reflex Irritability 1 min: Cough or Sneeze or Pulls Away Muscle Tone 1 min: Active Motion Color 1 min: Blue/Pale Resuscitation Effort 1 min: Tactile Stimulation SCORE 1 MIN: 8 Heart Rate 5 min: >100 bpm Resp Effort 5 min: Good Cry Reflex Irritability 5 min: Cough or Sneeze or Pulls Away Muscle Tone 5 min: Active Motion Color 5 min: Body [place], Extremities Blue SCORE 5 MIN: 9 INFANT INFORMATION BABY A Gestational Age at Delivery: 33.1 Gestational Status: - <34 Weeks Outcome : Liveborn Infant Condition : Stable Infant Sex: Male IDENTIFICATION BABY A Infant Verification Date/Time: 03/05/2019 23:27 ID Band Number: [id number] Mother's Name Verified: Yes Infant RN Verifying : KTyree Dunawayco, RN Additional Verifying Personnel: Gem Williamson RN WEIGHT/LENGTH BABY A Birthweight (gm): 1759 Weight (lb): 3 Infant Weight (oz): 14 Length (in): 17.32 Infant Length (cm): 43.99 CORD INFORMATION BABY A No. Cord Vessels: 3 Nuchal Cord : N/A Cord Blood Taken: Yes-For Eval (Mom's Blood Type - or O+) Infant Suction: None ASSESSMENT BABY A Skin to Skin: No BABY B INFORMATION : N/A
== END 2019-03-08 14:50 | disposition home or self-care (01) | DRG 788 ==
LOC: LC 03:26 → LR 04:53 → 2N 03-04 12:41 → LR 03-05 18:50 → 2N 03-06 02:14
PROVIDERS: ADMIT Obstetrics & Gynecology; ATTEND Obstetrics & Gynecology
PROC: 10D00Z1 Extraction of Products of Conception, Low, Open Approach (ICD-10-PCS; principal; 2019-03-05)
PROC: 3E02340 Introduction of Influenza Vaccine into Muscle, Percutaneous Approach (ICD-10-PCS; 2019-03-08)
DX: O42.913 Preterm premature rupture of membranes, unspecified as to length of time between rupture and onset of labor, third trimester (principal); O24.420 Gestational diabetes mellitus in childbirth, diet controlled; O99.824 Streptococcus B carrier state complicating childbirth; O32.8XX0 Maternal care for other malpresentation of fetus, not applicable or unspecified; Z3A.33 33 weeks gestation of pregnancy; Z37.0 Single live birth; Z23 Encounter for immunization
CPT/HCPCS: 1961; 36415; 59025; 76815; 80053; 80307; 81001; 82570; 83615; 84112; 84156; 84550; 85025; 85027; 86592; 86850; 86900; 86901; 87077; 87081; 87210; 87491; 87591; 88307; 90686; 90715; 94760; 94799; C1765; J0290; J0360; J0456; J0690; J0702; J1170; J1885; J2270; J2405; J2590; J3010; J3475; J3490; J7050; J7060; J7120